=== PATIENT | female | born 1990 | race Caucasian/White ===

== ENCOUNTER → 2017-11-25 14:33 | Outpatient (REF) | payer MEDICARE, MEDICAID, SELFPAY ==
[2017-11-25 19:01] LABS: Basophils % 0.5 % (0.1-2.0); Eosinophils # 0.9 K/mm3 (0.0-0.4); Hematocrit 41.9 % (37.0-47.0); Hemoglobin 13.4 g/dL (12.2-16.2); Lymphocytes # 2.4 K/mm3 (0.7-4.5); Lymphocytes % 25.8 K/mm3 (10-50); Mean Corpuscular HGB Conc 31.9 g/dL (31.8-35.4); Mean Corpuscular Hemoglobin 25.7 pg (27.0-31.2); Mean Corpuscular Volume 80.6 fl (81-99); Mean Platelet Volume 8.6 fl (7.4-10.4); Monocytes # 0.5 K/mm3 (0.1-1.0); Monocytes % 4.9 % (1.7-9.3); Neutrophils # 5.6 K/mm3 (1.8-7.8); Neutrophils % 59.7 % (37.0-80.0); Platelet Count 307 K/mm3 (142-424); Red Cell Distribution Width 14.4 % (11.5-17.5); White Blood Count 9.4 K/mm3 (4.8-10.8)
[2017-11-25 19:31] LABS: Alanine Aminotransferase 108 U/L (12-78); Albumin Level 3.9 gm/dL (3.4-5.0); Albumin/Globulin Ratio 1.3 (1.1-1.8); Alkaline Phosphatase 87 U/L (46-116); Anion Gap 13.2 mEq/L (5-15); Aspartate Amino Transferase 41 U/L (15-37); Bilirubin,Total 0.3 mg/dL (0.2-1.0); Blood Urea Nitrogen 11 mg/dL (7-18); Calcium 8.4 mg/dL (8.5-10.1); Carbon Dioxide 25 mmol/L (21.0-32.0); Chloride 104 mmol/L (98-107); Creatinine,Serum 0.63 mg/dL (0.55-1.02); Estimated Glomerular Filt Rate 115 ml/min (>60); GFR (African American) 139 ML/MIN (>60); Globulin 3.1 gm/dl (1.3-3.2); Glucose 89 mg/dL (74-106); Potassium 4.2 mmoL/L (3.5-5.1); Sodium 138 mmol/L (136-145); Thyroid Stimulating Hormone 2.45 uIU/ml (0.358-3.740)
[2017-11-27 20:09] LABS: Folate 11.8 ng/mL (>3.0); Vitamin B12 573 pg/mL (232-1245); Vitamin D 25 Hydroxy 22.7 ng/mL (30.0-100.0)
[2017-12-02 08:29] LABS: Hep A Ab, IgM Negative (Negative); Hepatitis B Core Antibody IgM Negative (Negative); Hepatitis B Surface Antigen Negative (Negative)
[2017-12-03 08:47] LABS: Hepatitis C Antibody <0.1 s/co ratio (0.0-0.9)
== END ==
LOC: LAB 14:33
PROVIDERS: Visit Provider Physician Assistant
DX: R51 Headache (principal); Z68.29 Body mass index [BMI] 29.0-29.9, adult; R74.8 Abnormal levels of other serum enzymes; R53.83 Other fatigue; F41.9 Anxiety disorder, unspecified
CPT/HCPCS: 80053; 80074; 82607; 82652; 82746; 84443; 85025

== ENCOUNTER → 2017-12-21 16:54 | Outpatient (CLI) | payer MEDICARE, MEDICAID, SELFPAY ==
[2017-12-21 18:07] LABS: HCG,Quantitative 0 mIU/mL
== END ==
PROVIDERS: PCP Physician Assistant; Visit Provider Nurse Practitioner Obstetrics & Gynecology
DX: Z34.90 Encounter for supervision of normal pregnancy, unspecified, unspecified trimester (principal)
CPT/HCPCS: 36415; 84702

== ENCOUNTER → 2017-12-24 07:53 | Outpatient (CLI) | payer MEDICARE, MEDICAID, SELFPAY ==
--- NOTE | 2017-12-24 07:56 | CT_ITS ---
CT head/brain wo con HISTORY: Headache with dizziness and lightheadedness ORDERING PHYSICIAN: RAFAT Velasco PATIENT AGE: 27 years COMPARISON: None TECHNIQUE: Axial images obtained without contrast. Brain and bone windows reviewed. FINDINGS: No midline shift, mass effect, intracranial hemorrhage, hydrocephalus, or extra-axial fluid collection is evident. The calvarium has an unremarkable appearance. No mastoid effusion. No sinus air-fluid levels.. IMPRESSION: Negative CT head without contrast. No acute finding.
== END ==
PROVIDERS: Family Provider Family Medicine; PCP Physician Assistant; Visit Provider Physician Assistant
DX: R51 Headache (principal)
CPT/HCPCS: 70450

== ENCOUNTER 2018-01-01 02:07 | Emergency (ER) | payer MEDICARE, MEDICAID, SELFPAY ==
[2018-01-01 02:09] VITALS: BP 155/104; PULSE 95; RESP 18; TEMP 36.6; O2SAT 97; BMI 28.7
--- NOTE | 2018-01-01 02:34 | HMH.EDALLER ---
ED Disposition Clinical Impression: Allergic reaction Qualifiers: Encounter type: initial encounter Qualified Code(s): T78.40XA - Allergy, unspecified, initial encounter Disposition: Home, Self-Care Condition on Discharge: Good Instructions: DI for General Allergic Reactions Additional Instructions: stop med and call pcp for follow up Referrals: Leticia Dillon PA [Primary Care Provider] - - Critical Care Critical Care Time: No Attestation: On 01/01/18, the high probability of a clinically significant, sudden or life threatening deterioration of the following system(s) required my full and direct attention, intervention and personal management. The time I documented below is in addition to time spent performing reported procedures but includes the following listed in this critical care notation. Medical Decision Making - Medical Records Medical records reviewed: Yes: I reviewed the patient's medical records. Vital Signs: 01/01/18 02:09 Temperature 97.9 F Temperature Source Oral Pulse Rate [Right Radial] 95 H Respiratory Rate 18 Blood Pressure [Right Arm] 155/104 Blood Pressure Mean [Right Arm] 121 Blood Pressure Source [Right Arm] Automatic Cuff Blood Pressure Position [Right Arm] Supine 02 Sat by Pulse Oximetry 97 Oxygen Delivery Method Room Air - Acosta Inquiry Pt receiving controlled substance: No Allergic React/Insect Bite HPI - General Chief complaint: Allergic Reaction Time Seen by Provider: 01/01/18 02:34 Mode of Arrival - ED Triage: Ambulatory Source of Information: Patient, Significant Other, Medical Record Limitations: No Limitations - History of Present Illness HPI narrative: has feeling of swollen throat tonight complaint: allergic reaction Onset (ago): hour(s) Exposure: medication Symptoms: difficulty swallowing Allergies/Adverse Reactions: Allergies Allergy/AdvReac Type Severity Reaction Status Date / Time amoxicillin [From AUGMENTIN] Allergy Unknown Verified 12/30/17 13:44 clavulanic acid Allergy Unknown Verified 12/30/17 13:44 [From AUGMENTIN] - Related Data Home Medications Medication Instructions Recorded Confirmed ibuprofen 400 mg tablet 800 mg PO NEEDED tab 11/04/17 01/01/18 Cholecalciferol (Vitamin D3) 1,000 unit PO ONCE 01/01/18 01/01/18 [Vitamin D3 1,000 Unit Cap] Duloxetine HCl [Cymbalta] 30 mg PO DAILY 01/01/18 01/01/18 Ergocalciferol (Vitamin D2) 50,000 unit PO QWEEK 01/01/18 01/01/18 [Vitamin D2] Phentermine HCl 37.5 mg PO DAILY 01/01/18 01/01/18 Ropinirole HCl [Requip] 0.5 mg PO QHS 01/01/18 01/01/18 Tramadol HCl [Ultram Take Home 50 mg PO BID 01/01/18 01/01/18 Pack 50mg (10)] Previous Rx's Medication Instructions Recorded albuterol sulfate HFA 90 2 puff INHALATION Q4-6H PRN #6.7 g 12/30/17 mcg/actuation aerosol inhaler [facility] History I have reviewed the patient's past medical history: Yes 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: Reports:: Anxiety, Asthma, Depression Denies:: Cancer, Diabetes Mellitus Type 1, Diabetes Mellitus Type 2, MRSA Other Surgeries: Yes: Amputation: No Fractures: No - Social History Educational Level: Completed High School Smoking Status: Never smoker Alcohol Intake: never Substance Use Type: denies use Occupational Status: unemployed Housing: house Household Members: spouse, children - Psychiatric History Expresses thoughts of harming self/others: None Suicide Plan Description: No Plan Pschychiatric History:: Reports:: Anxiety, Depression Family Hx:: Hypertension, 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
--- NOTE | 2018-01-01 02:37 | ED_ITS ---
ED Disposition Clinical Impression: Allergic reaction Qualifiers: Encounter type: initial encounter Qualified Code(s): T78.40XA - Allergy, unspecified, initial encounter Disposition: Home, Self-Care Condition on Discharge: Good Instructions: DI for General Allergic Reactions Additional Instructions: stop med and call pcp for follow up Referrals: Leticia Dillon PA [Primary Care Provider] - - Critical Care Critical Care Time: No Attestation: On 01/01/18, the high probability of a clinically significant, sudden or life threatening deterioration of the following system(s) required my full and direct attention, intervention and personal management. The time I documented below is in addition to time spent performing reported procedures but includes the following listed in this critical care notation. Medical Decision Making - Medical Records Medical records reviewed: Yes: I reviewed the patient's medical records. Vital Signs: 01/01/18 02:09 Temperature 97.9 F Temperature Source Oral Pulse Rate [Right Radial] 95 H Respiratory Rate 18 Blood Pressure [Right Arm] 155/104 Blood Pressure Mean [Right Arm] 121 Blood Pressure Source [Right Arm] Automatic Cuff Blood Pressure Position [Right Arm] Supine 02 Sat by Pulse Oximetry 97 Oxygen Delivery Method Room Air - Acosta Inquiry Pt receiving controlled substance: No Allergic React/Insect Bite HPI - General Chief complaint: Allergic Reaction Time Seen by Provider: 01/01/18 02:34 Mode of Arrival - ED Triage: Ambulatory Source of Information: Patient, Significant Other, Medical Record Limitations: No Limitations - History of Present Illness HPI narrative: has feeling of swollen throat tonight complaint: allergic reaction Onset (ago): hour(s) Exposure: medication Symptoms: difficulty swallowing Allergies/Adverse Reactions: Allergies Allergy/AdvReac Type Severity Reaction Status Date / Time amoxicillin [From AUGMENTIN] Allergy Unknown Verified 12/30/17 13:44 clavulanic acid Allergy Unknown Verified 12/30/17 13:44 [From AUGMENTIN] - Related Data Home Medications Medication Instructions Recorded Confirmed ibuprofen 400 mg tablet 800 mg PO NEEDED tab 11/04/17 01/01/18 Cholecalciferol (Vitamin D3) 1,000 unit PO ONCE 01/01/18 01/01/18 [Vitamin D3 1,000 Unit Cap] Duloxetine HCl [Cymbalta] 30 mg PO DAILY 01/01/18 01/01/18 Ergocalciferol (Vitamin D2) 50,000 unit PO QWEEK 01/01/18 01/01/18 [Vitamin D2] Phentermine HCl 37.5 mg PO DAILY 01/01/18 01/01/18 Ropinirole HCl [Requip] 0.5 mg PO QHS 01/01/18 01/01/18 Tramadol HCl [Ultram Take Home 50 mg PO BID 01/01/18 01/01/18 Pack 50mg (10)] Previous Rx's Medication Instructions Recorded albuterol sulfate HFA 90 2 puff INHALATION Q4-6H PRN #6.7 g 12/30/17 mcg/actuation aerosol inhaler [facility] History I have reviewed the patient's past medical history: Yes 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: Reports:: Anxiety, Asthma, Depression Denies:: Cancer, Diabetes Mellitus Type 1, Diabetes Mellitus Type 2, MRSA Other Surgeries: Yes: Amputation: No Fractures: No - Social History Educational Level: Completed High School Smoking Status: Never smoker Alcohol Intake: never Substance Use Type: denies
[2018-01-01 02:52] VITALS: BP 145/89; PULSE 96; RESP 14; TEMP 36.6; O2SAT 97
== END 2018-01-01 02:53 | disposition home or self-care (01) ==
PROVIDERS: Emergency Provider Emergency Medicine; Family Provider Family Medicine; PCP Physician Assistant
DX: T78.40XA Allergy, unspecified, initial encounter (principal); Z88.1 Allergy status to other antibiotic agents; Z79.899 Other long term (current) drug therapy; F41.8 Other specified anxiety disorders; J45.909 Unspecified asthma, uncomplicated
CPT/HCPCS: 99281

== ENCOUNTER → 2018-03-15 08:13 | Outpatient (POV) | payer MEDICARE, MEDICAID, SELFPAY | PROVIDERS: Family Provider Family Medicine; PCP Physician Assistant; Visit Provider Specialist | DX: R20.2 Paresthesia of skin (principal); R20.0 Anesthesia of skin | CPT/HCPCS: 95886; 95909 ==

== ENCOUNTER → 2018-10-19 16:11 | Outpatient (CLI) | payer MEDICARE, MEDICAID, SELFPAY | PROVIDERS: Visit Provider Nurse Practitioner Obstetrics & Gynecology | DX: Z34.90 Encounter for supervision of normal pregnancy, unspecified, unspecified trimester (principal) ==

== ENCOUNTER → 2018-11-18 13:13 | Outpatient (CLI) | payer MEDICAID, SELFPAY ==
--- NOTE | 2018-11-18 13:18 | US_ITS ---
US OB >= 14 weeks Fetus: INDICATION: ITS.REASON: US OB Dates ORDERING PHYSICIAN: Gurvinder Blount MD PATIENT AGE: 28 years TECHNIQUE: ultrasound transabdominal scanning. COMPARISON: No previous relevant studies. FINDINGS: There is a single live intrauterine gestation present. Variable position. Placenta is posterior Measurements: Average ultrasound age 12w6d. Gestational Age 15w4d. Estimated due date by ultrasound age 0705/27/2019. Estimated weight 60 grams. BPD = 12w6d OFD = HC = 13w1d AC = 12w5d FL = 12w3d Heart Rate = 165 HC/AC is 1.25 (1.05-1.39) CI is 65% (70-86%). Unremarkable adnexa IMPRESSION: Single live intrauterine gestation with average ultrasound age of 12 weeks 6 days. Estimated due date based on ultrasound is 05/27/2019.
== END ==
PROVIDERS: PCP Physician Assistant; Visit Provider Nurse Practitioner Obstetrics & Gynecology
DX: O26.841 Uterine size-date discrepancy, first trimester (principal)
CPT/HCPCS: 76805

== ENCOUNTER → 2018-12-23 12:07 | Outpatient (CLI) | payer MEDICAID, SELFPAY ==
[2018-12-23 12:33] LABS: Basophils % 0.4 % (0.1-2.0); Eosinophils # 0.3 K/mm3 (0.0-0.4); Eosinophils % 2.4 % (0.1-12.0); Hematocrit 38.7 % (37.0-47.0); Hemoglobin 13.4 g/dL (12.2-16.2); Lymphocytes # 2.2 K/mm3 (0.7-4.5); Lymphocytes % 21.2 % (10-50); Mean Corpuscular HGB Conc 34.5 g/dL (31.8-35.4); Mean Corpuscular Hemoglobin 30.3 pg (27.0-31.2); Mean Corpuscular Volume 87.9 fl (81-99); Mean Platelet Volume 7.4 fl (7.4-10.4); Monocytes # 0.4 K/mm3 (0.1-1.0); Monocytes % 4.1 % (1.7-9.3); Neutrophils # 7.4 K/mm3 (1.8-7.8); Neutrophils % 71.9 % (37.0-80.0); Platelet Count 281 K/mm3 (142-424); Red Cell Distribution Width 13.7 % (11.5-17.5); White Blood Count 10.3 K/mm3 (4.8-10.8)
[2018-12-24 12:28] LABS: HIV Screen 4th Generation wRfx Non Reactive (Non Reactive); Hepatitis B Surface Antigen Negative (Negative); Hepatitis C Antibody <0.1 s/co ratio (0.0-0.9); Rapid Plasma Reagin Ab Titer Non Reactive (NonRea<1:1); Rubella Antibodies, IgG 1.41 index (Immune >0.99)
== END ==
PROVIDERS: Visit Provider Nurse Practitioner Obstetrics & Gynecology
DX: Z34.90 Encounter for supervision of normal pregnancy, unspecified, unspecified trimester (principal)
CPT/HCPCS: 36415; 85025; 86592; 86703; 86762; 86850; 87340; 87380; G0432

== ENCOUNTER → 2019-01-07 13:15 | Outpatient (CLI) | payer MEDICAID, SELFPAY ==
--- NOTE | 2019-01-07 13:17 | US_ITS ---
US OB /maternal detail: INDICATION: ITS.REASON: US OB Complete ORDERING PHYSICIAN: Trudi Warner MD PATIENT AGE: 28 years TECHNIQUE: ultrasound transabdominal scanning. COMPARISON: No previous relevant studies. FINDINGS: Single viable intrauterine gestation. Breech position. Placenta: Post placenta grade 1. There is average amount fluid. The cervix appears satisfactory. Closed and measuring 4 cm in length. Complete survey performed and was unremarkable on the submitted images as in PACS. No discrete anomalies identified on survey imaging by technologist. Active fetus. Three-vessel cord with satisfactory umbilical cord insertion. 4- chamber heart noted. Survey of brain & ventricles unremarkable. Face and neck survey unremarkable. Diaphragm and chest views unremarkable. Abdomen: Both kidneys noted and unremarkable. Stomach noted and satisfactory. Spine: Survey of the spine satisfactory with no anomalies identified nor imaged. Both arms and legs noted. Amniotic Fluid: Adequate. Maternal adnexa: No significant findings. Measurements: Average ultrasound age 18w5d. Gestational Age 20w0d. Estimated due date by ultrasound age 0706/05/2019. Estimated weight 256 grams. BPD = 18w3d OFD = 19w5d HC = 18w3d AC = 18w4d FL = 19w2d Growth Percentile= 4% Heart Rate = 163 Cerebellum = 18w3d Humerus = 18w5d HC/AC is 1.20 (1.09-1.26). CI is 72% (70-86%). FL/BPD is 74%. FL/AC is 23%. IMPRESSION: There is a single live fetus which is in breech presentation. All parameters correlate with no obvious anomalies. Average ultrasound age is 18 weeks and 5 days. Estimated weight 256-g which is 4 percentile. Consider follow-up to evaluate for growth. Please see above for detail. Placenta is posterior and grade 1
== END ==
PROVIDERS: PCP Physician Assistant; Visit Provider Obstetrics & Gynecology
DX: Z36.0 Encounter for antenatal screening for chromosomal anomalies (principal)
CPT/HCPCS: 76811

== ENCOUNTER 2019-04-23 01:52 | Emergency (ER) | payer MEDICAID, SELFPAY ==
[2019-04-23 02:04] VITALS: BP 151/106; PULSE 94; RESP 16; TEMP 36.9; O2SAT 98; BMI 66.6
--- NOTE | 2019-04-23 02:17 | PC.NURSE ---
OB at bedside to hook patient up to monitor.
--- NOTE | 2019-04-23 02:18 | PC.NURSE ---
efm applied at this time. OB RN at bedside at this time
--- NOTE | 2019-04-23 02:30 | PC.NURSE ---
[facility] [id number] see paper tracing fht 135 moderate variability no decels irregular contractions, none felt per pt. rn remains at bedside
[2019-04-23 02:34] LABS: Microscopic, Urine URINE MICROSCOPIC (MICROSCOPIC)
[2019-04-23 02:36] LABS: Basophils % 0.3 % (0.1-2.0); Eosinophils # 0.4 K/mm3 (0.0-0.4); Eosinophils % 2.9 % (0.1-12.0); Hematocrit 38.5 % (37.0-47.0); Hemoglobin 12.6 g/dL (12.2-16.2); Lymphocytes # 2.5 K/mm3 (0.7-4.5); Lymphocytes % 20.9 % (10-50); Mean Corpuscular HGB Conc 32.8 g/dL (31.8-35.4); Mean Corpuscular Hemoglobin 28.2 pg (27.0-31.2); Mean Corpuscular Volume 85.8 fl (81-99); Mean Platelet Volume 8.1 fl (7.4-10.4); Monocytes # 0.8 K/mm3 (0.1-1.0); Monocytes % 6.5 % (1.7-9.3); Neutrophils # 8.4 K/mm3 (1.8-7.8); Neutrophils % 69.5 % (37.0-80.0); Platelet Count 266 K/mm3 (142-424); Red Blood Count 4.49 M/mm3 (4.20-5.40); Red Cell Distribution Width 14.7 % (11.5-17.5); White Blood Count 12.1 K/mm3 (4.8-10.8)
--- NOTE | 2019-04-23 02:38 | HMH.EDGENADL ---
ED Disposition Clinical Impression: Chest pain Qualifiers: Chest pain type: unspecified Qualified Code(s): R07.9 - Chest pain, unspecified Qualifiers: Weeks of gestation: 35 weeks Qualified Code(s): Z3A.35 - 35 weeks gestation of Disposition: Home, Self-Care Condition on Discharge: Good Instructions: DI for -- Discomforts and Remedies Additional Instructions: use meds as directed and follow up with ob Referrals: Leticia Dillon PA [Primary Care Provider] - - Critical Care Critical Care Time: No Attestation: On 04/23/19, the high probability of a clinically significant, sudden or life threatening deterioration of the following system(s) required my full and direct attention, intervention and personal management. The time I documented below is in addition to time spent performing reported procedures but includes the following listed in this critical care notation. Medical Decision Making - Medical Records Medical records reviewed: Yes: I reviewed the patient's medical records. - Acosta Inquiry Pt receiving controlled substance: No Vital Signs: 04/23/19 02:04 04/23/19 02:56 04/23/19 03:00 Temperature 98.5 F 98.5 F Temperature Source Temporal Artery Scan Temporal Artery Scan Pulse Rate [Right Brachial] 94 H 87 Respiratory Rate 16 16 Blood Pressure [Right Arm] 151/106 H 137/92 H 137/80 Blood Pressure Mean [Right Arm] 121 107 99 Blood Pressure Source [Right Arm] Automatic Cuff Automatic Cuff Automatic Cuff Blood Pressure Position [Right Arm] Sitting Sitting Sitting 02 Sat by Pulse Oximetry 98 98 Oxygen Delivery Method Room Air Room Air - Lab Data Lab results reviewed: Yes: I reviewed the patient's lab results. Lab Results 04/23/19 02:16: WBC 12.1 H, RBC 4.49, Hgb 12.6, Hct 38.5, MCV 85.8, MCH 28.2, MCHC 32.8, RDW 14.7, Plt Count 266, MPV 8.1, Neut % (Auto) 69.5, Lymph % (Auto) 20.9, Freeborn % (Auto) 6.5, Eos % (Auto) 2.9, Baso % (Auto) 0.3, Neut # (Auto) 8.4 H, Lymph # (Auto) 2.5, Freeborn # (Auto) 0.8, Eos # (Auto) 0.4, Baso # (Auto) 0.0 04/23/19 02:16: Sodium 142, Potassium 3.4 L, Chloride 106, Carbon Dioxide 22, Anion Gap 17.4 H, BUN 6 L, Creatinine 0.66, Estimated Creat Clear 97, Estimated GFR 107, Est GFR ( Amer) 130, Glucose 91, Calcium 8.9, Troponin I < 0.02 04/23/19 02:16: Total Bilirubin 0.3, Direct Bilirubin 0.1, Indirect Bilirubin 0.2, AST 17, ALT 21, Alkaline Phosphatase 129 H, Total Protein 6.6, Albumin 2.7 L, Lipase 111 04/23/19 02:25: Urine Color Yellow, Urine Appearance Clear, Urine pH 6.5, Ur Specific Sullivan 1.025, Urine Protein Negative, Urine Glucose (UA) Negative, Urine Ketones Negative, Urine Blood Negative, Urine Nitrate Negative, Urine Bilirubin Negative, Urine Urobilinogen 0.2, Ur Leukocyte Esterase Negative, Ur Squamous Epith Cells 5-10, Amorphous Sediment 1+ Result diagrams: 04/23/19 02:16 04/23/19 02:16 Orders (Tests/Meds): ED MEDICATIONS Generic Name Dose Route Start Last Admin Trade Name Freq PRN Reason Stop Dose Admin Sodium Chloride 1,000 mls @ 999 mls/hr 04/23/19 03:00 04/23/19 03:01 Sod Chlor 0.9% 1000ml Bag IV 04/23/19 04:00 999 mls/hr .Q1H1M WOLFGANG Administration General Adult HPI - General Chief complaint: PAIN Stated complaint: Chest pain,stomach pain, dizziness Time Seen by Provider: 04/23/19 02:20 Mode of Arrival: Ambulatory Source of Information: Patient, Medical Record Limitations: No Limitations Description of Symptoms (Recalled from ER Triage Doc. by RN): Pt is 35 weeks and c/o chest pain, tightness in her abd that has been going on for 2 hrs. - History of Present Illness HPI narrative: pt with lower chest /upper abd pain in this 35 week preg - no vag bleeding or d/c - no vomiting or diarrhea - no known ht disease - on meds for pre-=eclampsia Onset (ago): hour(s) Location: chest, abdomen Radiation: non-radiation Severity: moderate Associated symptoms: denies other symptoms Treatm
[2019-04-23 02:45] LABS: Appearance,Urine CLEAR (Clear); Bilirubin,Urine Negative (Negative); Blood, Urine Negative (Negative); Color,Urine YELLOW (Yellow); Glucose,Urine (UA) Negative (Negative); Ketones,Urine Negative (Negative); Leukocyte Esterase,Urine Negative (Negative); Nitrate,Urine Negative (Negative); PH,Urine 6.5 (5.0-8.5); Protein,Urine Negative (Negative); Specific Gravity, Urine 1.025 (1.005-1.030); Urobilinogen,Urine 0.2 EU/dl (0.2)
--- NOTE | 2019-04-23 02:45 | PC.NURSE ---
[facility] [id number] see paper tracing OB RN remains at bedside monitoring heart status at this time [id number] moderate variabillity no decels. irregular contractions. none felt per pt pt states headache and abdominal pain better at this time
[2019-04-23 02:49] LABS: Amorphous Sediment,Urine 1+ /lpf
[2019-04-23 02:52] LABS: Anion Gap 17.4 mEq/L (5-15); Blood Urea Nitrogen 6 mg/dL (7-18); Calcium 8.9 mg/dL (8.5-10.1); Carbon Dioxide 22 mmol/L (21.0-32.0); Chloride 106 mmol/L (98-107); Creatinine Clearance Estimated 97 mL/min (50-200); Creatinine,Serum 0.66 mg/dL (0.55-1.02); Estimated Glomerular Filt Rate 107 ml/min (>60); GFR (African American) 130 ML/MIN (>60); Glucose 91 mg/dL (74-106); Potassium 3.4 mmoL/L (3.5-5.1); Sodium 142 mmol/L (136-145); Troponin I < 0.02 ng/ml (0.00-0.06)
[2019-04-23 02:56] VITALS: BP 137/92
[2019-04-23 02:56] LABS: Alanine Aminotransferase 21 U/L (12-78); Albumin Level 2.7 gm/dL (3.4-5.0); Alkaline Phosphatase 129 U/L (46-116); Aspartate Amino Transferase 17 U/L (15-37); Bilirubin,Direct 0.1 mg/dL (0.0-0.2); Bilirubin,Indirect 0.2 mg/dL (0.0-0.9); Bilirubin,Total 0.3 mg/dL (0.2-1.0); Lipase 111 u/L (73-393); Total Protein,Serum 6.6 gm/dL (6.4-8.2)
--- NOTE | 2019-04-23 02:57 | PC.NURSE ---
[id number] see paper tracing fht average 135-140 moderate variability with no decels or contractions
[2019-04-23 03:00] VITALS: BP 137/80; PULSE 87; RESP 16; TEMP 36.9; O2SAT 98
[2019-04-23 03:30] VITALS: BP 134/70; PULSE 70; RESP 16; TEMP 36.9; O2SAT 98
== END 2019-04-23 03:36 | disposition home or self-care (01) ==
PROVIDERS: Emergency Provider Emergency Medicine; PCP Physician Assistant
DX: R07.9 Chest pain, unspecified (principal); Z3A.35 35 weeks gestation of pregnancy; F41.8 Other specified anxiety disorders; J45.909 Unspecified asthma, uncomplicated; Z88.1 Allergy status to other antibiotic agents; Z88.8 Allergy status to other drugs, medicaments and biological substances
CPT/HCPCS: 80048; 80076; 81001; 83690; 84484; 85025; 93005; 96365; 99283

== ENCOUNTER → 2019-04-25 16:53 | Outpatient (CLI) | payer MEDICAID, SELFPAY | PROVIDERS: Visit Provider Nurse Practitioner Obstetrics & Gynecology | DX: Z34.90 Encounter for supervision of normal pregnancy, unspecified, unspecified trimester (principal) | CPT/HCPCS: 86403 ==

== ENCOUNTER → 2019-05-03 12:45 | Outpatient (CLI) | payer MEDICAID, SELFPAY ==
--- NOTE | 2019-05-03 12:49 | US_ITS ---
US OB BPP w/Fet-Mat S/D: Indication: ITS.REASON: US OB BPP Growth- LGA ORDERING PHYSICIAN: Gurvinder Blount MD PATIENT AGE: 29 years FINDINGS: The visualized portions of the fetus appear to be unremarkable. The following parameters are obtained: Average ultrasound age is 35 weeks. Estimated due date by ultrasound is 06/07/2019. Estimated weight is 2667 g BPD: 8.55 cm equals 34 weeks and 4 days. OFD: 10.68 cm equals 34 weeks. HC: 30.39 cm equals 33 weeks and 6 days. AC: 32.28 cm equals 36 weeks and 2 days. FL: 6.78 cm equals 34 weeks and 6 days. heart rate: 144 bpm. HC/AC: 0.94 Cephalic index: 80% FL/BPD: 79% FL/AC: 21% Amniotic fluid index: 26.9 Qualitative AFV: 2 breathing movements: 2 Gross body movements: 2 Tone: 2 Biophysical profile score: 8/8 Doppler evaluation of the umbilical artery: SD ratio: 2.5 Resistive index: 0.6 No obvious anomalies evident. Placenta: Grade 2 and posterior in location. Cervix: Appears closed and measures 3.16 cm IMPRESSION: Single intrauterine fetus of approximately 35 weeks gestational age with heart rate of 144 bpm. The fetus appears to be in cephalic presentation. There is possible polyhydramnios.
== END ==
PROVIDERS: PCP Physician Assistant; Visit Provider Nurse Practitioner Obstetrics & Gynecology
DX: O36.60X0 Maternal care for excessive fetal growth, unspecified trimester, not applicable or unspecified (principal)
CPT/HCPCS: 76819

== ENCOUNTER 2019-05-21 23:32 | Outpatient (CLI) | payer MEDICAID, SELFPAY ==
[2019-05-22 00:16] VITALS: BMI 32.5
[2019-05-22 00:18] VITALS: BP 143/99; PULSE 82; RESP 18; TEMP 36.9
[2019-05-22 00:20] VITALS: BMI 32.5
[2019-05-22 00:55] LABS: Microscopic, Urine URINE MICROSCOPIC (MICROSCOPIC)
[2019-05-22 00:59] LABS: Appearance,Urine SL CLOUDY (Clear); Bilirubin,Urine Negative (Negative); Blood, Urine Negative (Negative); Color,Urine YELLOW (Yellow); Glucose,Urine (UA) Negative (Negative); Ketones,Urine Negative (Negative); Leukocyte Esterase,Urine 1+ (Negative); Nitrate,Urine Negative (Negative); PH,Urine 6.5 (5.0-8.5); Protein,Urine Negative (Negative); Specific Gravity, Urine 1.025 (1.005-1.030); Urobilinogen,Urine 0.2 EU/dl (0.2)
[2019-05-22 01:04] LABS: Amphetamine/Metha Screen,Urine Negative ng/mL (<1000); Barbiturates Screen,Urine Negative ng/mL (<200); Benzodiazepines Screen,Urine Negative ng/mL (<200); Cannabinoid Screen,Urine Negative ng/mL (<50); Cocaine Screen,Urine Negative ng/mL (<300); Methadone Screen,Urine Negative ng/mL (<300); Opiate Screen,Urine Negative ng/mL (<300); Phencyclidine Screen,Urine Negative ng/mL (<25)
[2019-05-22 01:05] LABS: Amorphous Sediment,Urine 2+ /lpf; Mucus,Urine 1+ /lpf
== END 2019-05-22 03:45 | disposition home or self-care (01) ==
LOC: OBOUT 23:35 → OB 23:35
PROVIDERS: PCP Physician Assistant; Visit Provider Obstetrics & Gynecology
DX: Z3A.39 39 weeks gestation of pregnancy (principal)
CPT/HCPCS: 59025; 80305; 81001; 87086

== ENCOUNTER 2019-05-23 05:31 | Inpatient (IN) ==
[2019-05-23 06:37] LABS: Basophils # 0.1 K/mm3 (0-0.2); Basophils % 0.5 % (0.1-2.0); Eosinophils # 0.6 K/mm3 (0.0-0.4); Eosinophils % 4.4 % (0.1-12.0); Hematocrit 38.1 % (37.0-47.0); Hemoglobin 12.5 g/dL (12.2-16.2); Lymphocytes # 3.1 K/mm3 (0.7-4.5); Lymphocytes % 22.3 % (10-50); Mean Corpuscular HGB Conc 32.9 g/dL (31.8-35.4); Mean Corpuscular Volume 86.8 fl (81-99); Monocytes # 0.7 K/mm3 (0.1-1.0); Monocytes % 4.7 % (1.7-9.3); Neutrophils # 9.4 K/mm3 (1.8-7.8); Platelet Count 254 K/mm3 (142-424); Red Blood Count 4.39 M/mm3 (4.20-5.40); Red Cell Distribution Width 14.4 % (11.5-17.5); White Blood Count 13.8 K/mm3 (4.8-10.8)
[2019-05-23 06:48] LABS: Anion Gap 13.3 mEq/L (5-15); Calcium 8.4 mg/dL (8.5-10.1)
--- NOTE | 2019-05-23 08:32 | Operative Note ---
Date of procedure: 05/23/19 Pre-op Diagnosis:: Term , previous section, desire for sterilization Post-op Diagnosis:: Term , previous section, desire for sterilization Procedure performed:: Repeat lower segment as her section and bilateral tubal ligation Surgeon:: Guvrinder Blount MD Manager Internet(s):: Dr. Warner WARES SORTER:: Danny Kat Anesthesia: spinal Estimated blood loss (mL): 600 Clinical Note:: She is a 29-year-old 3 para 2 who is 39 weeks gestational age. She is had 2 previous sections and as a result of that was offered repeat lower segment transverse section at term. She also expressed desire for sterilization and she was offered bilateral tubal ligation. Operative findings:: She delivered a liveborn female child at 7:49 AM on the morning of May 23, 2019. The baby had Apgars of 7 at 1 minute and 8 at 5 minutes. Ovaries and tubes appeared normal. Operative note:: She was taken to the operating room where spinal anesthesia was found be adequate. She was prepped and draped in normal sterile fashion in the supine position with a leftward tilt. A Oneal catheter was in the bladder. A Pfannenstiel skin incision was made with knife then carried through to the underlying layer of fascia with cautery. The fascia was opened in the midline with cautery and extended laterally using Hills scissors. Zohra clamps were applied to the superior aspect of the fascial incision which was tented up and the underlying rectus muscles dissected off using cautery. The Zohra clamps were then applied to the inferior aspect of the fascial incision which in a similar fashion was tented up and the underlying rectus muscles dissected off using cautery. The rectus muscles were then in the midline, the peritoneum identified, and entered sharply with Metzenbaum scissors. This incision was then extended superiorly and inferiorly with cautery. We had good visualization of the bladder inferiorly. The Kei device was then placed within the abdominal cavity. The bladder peritoneum was then opened in the midline and extended laterally using Metzenbaum scissors. A bladder flap was created digitally. The Kei device was then placed within the abdominal cavity. Transverse incision was made through the uterine muscle to the amnion. This incision was then extended laterally using fingers traction. The amnion was entered sharply with knife. There was clear amniotic fluid. The 's head was then delivered atraumatically. This was followed by the anterior shoulder and the rest of the infant's body atraumatically. The oropharynx and nasopharynx were bulb suctioned. The infant was then handed off to Dr. Garcia who assigned Apgars of 7 at 1 minute and 8 at 5 minutes. We then obtained cord blood as well as cord pH. The pH was 7.39. Using gentle traction on the cord and countertraction on the fundus I was able to easily deliver the placenta intact. It had a normal three-vessel cord. The uterus was then cleared of clots and debris . The uterine incision was then closed using running 0 Vicryl suture in a locked fashion. A second layer of the same suture was used to imbricate the first layer. The bladder peritoneum was quite down low away from the lower uterine segment so I elected just closed the lower uterine segment and a third layer of running 2-0 Vicryl suture. The gutters and cul-de-sac were then cleared of clots and debris . Once again hemostasis was assured. I then grasped the left tube and exposed it. I grasped the tube in the middle section of the tube with a Kennedy and then clamped across the intervening section of tube. I then doubly tied this section of tube and cut away the intervening section of tube. I then cauterized the ends of the tubes. This was similar performed on the opposite side. I then elected to place a piece of Surgicel along the uterine incision. The peritoneum was grasped with Rosa Maria clamps and closed using running 2-0 Vicryl suture. The rectus muscles were then reapproximated using running 0 Vicryl suture. The fascia was closed using running #1 Vicryl suture. The subcutaneous tissues were then irrigated with warm water followed by closure Blanche's fascia using running 2-0 Monocryl suture. The skin was closed with roopa. I then cleaned the skin with Hibiclens. Sterile dressings were applied. She tolerated the procedure well and was taken to the recovery room in excellent condition. All sponges minute and needle counts were correct. Estimate a blood loss was approximately 600 mL. Condition: stable Disposition: PACU Specimens:: Bilateral fallopian tube sections Complications:: None
--- NOTE | 2019-05-23 08:38 | Progress Note ---
[facility] Anesthesia Checklist - Patient Identification Patient Identification: Arm Band - Structural Data Admitted From: Inpatient Planned Operative Procedure/s: repeat c/s, btl Consent for Planned Operative Procedure(s) Verified: Yes Verified Documents: Surgical Consent, History and Physical - NPO Status Verified Time NPO: 00:00 - Additional verifications Anesthesia Reactions: No - Airway Assessment C-Spine Mobility Assessed: Yes (mp2) TMJ Mobility Assessed: Yes Dentition: Good Dentition - Neurological Assessment Level of Consciousness: Awake, Alert - Anesthesia Plan Anesthesia Risk discussed: Yes Anesthesia Plan: Verified ASA Class: II Anesthesia Type: Spinal [facility] History I have reviewed the patient's past medical history: Yes 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: Reports:: Anxiety, Asthma, Depression Denies:: Cancer, Diabetes Mellitus Type 1, Diabetes Mellitus Type 2, Gastrointestinal Bleed, MRSA, Renal Disease, Ulcer *Have you ever received a pneumonia vaccine?: No *Have you received a flu vaccine this season?: No Other Surgeries: Yes: Amputation: No Fractures: No - *Social History Smoking Status: Never smoker Tobacco Type: cigarettes Alcohol Intake: never Substance Use Type: denies use *Occupational Status:: unemployed Housing: house Household Members: spouse, children *Travel in the last 8 weeks: None - Psychiatric History Pschychiatric History:: Reports:: Anxiety, Depression Family 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
--- NOTE | 2019-05-23 08:39 | Progress Note ---
[facility] Anesthesia Record Part I Intake, IV Amount: 2,000 Estimated blood loss (mL): 600 Urine output (mL): 125 Blood Pressure: 127/89 SaO2: 96 Pulse Rate: 95 Respiratory Rate: 16 Temperature: 98.4 F Patient is:: Drowsy, Stable Stable to PACU at:: 08:30
--- NOTE | 2019-05-23 08:39 | Progress Note ---
[facility] Anesthesia Record Part II Discharge Time: 09:00 Destination: Obstetric PACU nurse assessment reviewed?: Yes Patient Condition:: Good Anesthesia Complications:: None Swallowing reflex intact?: Yes Cyanosis?: No
--- NOTE | 2019-05-23 14:57 | Pharmacy Consult Notes ---
[facility] Pharmacy VTE Monitoring - Patient Demographics Admission date: 05/23/19 Report Date: 05/23/19 Time: 14:56 Allergies/Adverse Reactions: Patient Allergies citalopram [From Celexa] Allergy (Mild, Verified 05/19/19 16:08) Rash duloxetine [From Cymbalta] Allergy (Mild, Verified 05/19/19 16:08) amoxicillin [From AUGMENTIN] Allergy (Unknown, Verified 05/19/19 16:08) clavulanic acid [From AUGMENTIN] Allergy (Unknown, Verified 05/19/19 16:08) Height: 1.55 m Weight: 78.018 kg - VTE Risk Labs: VTE Related Lab Results Hgb 12.5 g/dL (12.2-16.2) 05/23/19 06:10 Hct 38.1 % (37.0-47.0) 05/23/19 06:10 Plt Count 254 K/mm3 (142-424) 05/23/19 06:10 BUN 7 mg/dL (7-18) 05/23/19 06:10 Creatinine 0.72 mg/dL (0.55-1.02) 05/23/19 06:10 Estimated Creat Clear 145 mL/min (50-200) 05/23/19 06:10 Clinical Trial Participant: No - Prophylaxis VTE Prophylaxis Ordered?: Yes Types of VTE Prophylaxis: IPCS Knee High (POST OP)
[2019-05-23 15:09] LABS: Amphetamine/Metha Screen,Urine Negative ng/mL (<1000); Barbiturates Screen,Urine Negative ng/mL (<200); Benzodiazepines Screen,Urine Negative ng/mL (<200); Cannabinoid Screen,Urine Negative ng/mL (<50); Cocaine Screen,Urine Negative ng/mL (<300); Methadone Screen,Urine Negative ng/mL (<300); Opiate Screen,Urine Negative ng/mL (<300); Phencyclidine Screen,Urine Negative ng/mL (<25)
[2019-05-24 06:49] LABS: Hemoglobin 9.8 g/dL (12.2-16.2)
--- NOTE | 2019-05-24 07:14 | Progress Note ---
Internal Medicine - PN: Subj *Date: 05/24/19 *Time: 07:13 Interval history: She continues to do well. She is eating and drinking and ambulating. Her pain is well controlled. Her lochia is normal. Exam Vital signs and Labs for Last 24 Hours: Temp Pulse Resp BP Pulse Ox 97.8 F 89 18 140/95 H 98 05/23/19 09:00 05/23/19 09:00 05/23/19 09:00 05/23/19 09:00 05/23/19 09:00 Laboratory Results - last 24 hr 05/23/19 06:10: Urine Opiates Screen Negative, Urine Methadone Screen Negative, Ur Barbituates Screen Negative, Ur Phencyclidine Scrn Negative, Ur Amphetamines Screen Negative, U Benzodiazepines Scrn Negative, Urine Cocaine Screen Negative, U Marijuana (THC) Screen Negative 05/23/19 07:35: Urine Color Yellow, Urine Appearance Clear, Urine pH 6.5, Ur Specific [place] 1.025, Urine Protein Trace, Urine Glucose (UA) Negative, Urine Ketones Negative, Urine Blood Negative, Urine Nitrate Negative, Urine Bilirubin Negative, Urine Urobilinogen 0.2, Ur Leukocyte Esterase Negative, Urine WBC Occasional, Ur Squamous Epith Cells Occasional, Urine Bacteria Trace 05/23/19 07:52: Cord ABG pH 7.38 05/24/19 06:12: Hgb 9.8 L, Hct 30.0 L I & O for Last 24 hours: Intake & Output 05/21/19 05/22/19 05/23/19 05/24/19 11:59 11:59 11:59 11:59 Intake Total 2200 / 2200 Output Total 200 / 200 Balance 1999 Weight 172 lb - Constitutional no acute distress Assessment and Plan (1) Previous section complicating , with delivery Current visit: Yes Status: Acute Category: Medical Code(s): O34.219 - Maternal care for unspecified type scar from previous delivery (2) Encounter for sterilization Current visit: Yes Status: Acute Category: Medical Code(s): Z30.2 - Encounter for sterilization (3) Delivery by section of full-term Current visit: Yes Status: Acute Category: Medical Code(s): O82 - Encounter for delivery without indication - Assessment and plan all Dx Assessment and Plan for all problems:: She continues to do well. We will plan to send her home in 48 hours.
[2019-05-24 22:08] VITALS: BP 140/100
--- NOTE | 2019-05-25 09:21 | Progress Note ---
Internal Medicine - PN: Subj *Date: 05/25/19 *Time: 09:20 Interval history: She is doing well this morning. She is eating and drinking and ambulating. She is still an moderate amount of pain at times. She is bottlefeeding. Her lochia is normal. Her incision is clean and dry. Exam Vital signs and Labs for Last 24 Hours: Temp Pulse Resp BP Pulse Ox 98.6 F 102 H 17 140/100 H 98 05/24/19 20:20 05/24/19 20:20 05/24/19 20:20 05/24/19 20:20 05/24/19 20:20 I & O for Last 24 hours: Intake & Output 05/22/19 05/23/19 05/24/19 05/25/19 11:59 11:59 11:59 11:59 Intake Total 2200 / 2200 Output Total 200 / 200 Balance 1999 Weight 172 lb - Constitutional no acute distress Assessment and Plan (1) Previous section complicating , with delivery Current visit: Yes Status: Acute Category: Medical Code(s): O34.219 - Maternal care for unspecified type scar from previous delivery (2) Encounter for sterilization Current visit: Yes Status: Acute Category: Medical Code(s): Z30.2 - Encounter for sterilization (3) Delivery by section of full-term infant Current visit: Yes Status: Acute Category: Medical Code(s): O82 - Encounter for delivery without indication - Assessment and plan all Dx Assessment and Plan for all problems:: She continues to do very well. She will be discharged home tomorrow.
--- NOTE | 2019-05-26 08:18 | Discharge Summary ---
General - General Admission date:: 05/23/19 Discharge date: 05/26/19 HPI HPI: She is a 29-year-old 3 now para 3 who was 39 weeks gestational age. She has had 2 previous sections and as a result of that was offered repeat lower segment transverse section at term. She also expressed desire for sterilization. Hospital Course Hospital Course: On May 23, 2019 she underwent a repeat lower segment transverse section and bilateral tubal ligation. She delivered a liveborn female child weighing 6 pounds 11 ounces and 19 inches long. The baby had Apgars of 7 at 1 minute and 8 at 5 minutes. She has done well and has remained afebrile throughout her hospitalization. She is eating and drinking and ambulating. She is bottlefeeding. She has a positive blood, she is rubella immune and was group B strep is negative. Her lockstitcher is Dr. Garcia. She will be discharged home to follow-up with me in approximately 2 weeks time. She will continue with her pre vitamins and iron. She was given the usual instructions with respect to limiting her activity and driving as well as sexual activity. She has had her roopa removed and Steri-Strips applied. Her condition on discharge is stable. Rhogam Administration: Not Indicated Objective Vital signs: Temp Pulse Resp BP Pulse Ox 98.6 F 102 H 17 140/100 H 98 05/24/19 20:20 05/24/19 20:20 05/24/19 20:20 05/24/19 20:20 05/24/19 20:20 no acute distress DS: Diagnosis - Discharge Diagnosis (1) Previous section complicating , with delivery Status: Acute (2) Encounter for sterilization Status: Acute (3) Delivery by section of full-term infant Status: Acute Discharge Plan - Patient Discharge Instructions ACTIVITY: No heavy lifting DIET: continue same diet - Follow up Plan Follow up with: Gurvinder Blount MD [Staff Physician] - 06/14/19 10:30 am Disposition: Home, Self-Fdc Medications: Home Medications Medication Instructions Recorded Confirmed Type 1 tab PO DAILY 10/19/18 05/23/19 History vitamin,calcium,kcyeesuu-xczy-adsgo acid tablet sertraline 100 mg tablet 100 mg PO DAILY #90 tab 12/07/18 05/23/19 Rx Labetalol HCl 200 mg PO BID 05/23/19 05/23/19 History Oxycodone HCl/Acetaminophen 1 - 2 tab PO Q4-6H PRN #30 tab 05/26/19 Rx [Percocet 5/325mg tablet] Prescriptions/Medication Reconciliation: New Oxycodone HCl/Acetaminophen [Percocet 5/325mg tablet] 1 - 2 tab PO Q4-6H PRN #30 tab PRN Reason: Severe Pain Continued vitamin,calcium,jhjghpjr-eobb-gukib acid tablet 1 tab PO DAILY sertraline 100 mg tablet 100 mg PO DAILY #90 tab Labetalol HCl 200 mg PO BID
== END 2019-05-26 10:20 | disposition home or self-care (01) | DRG 785 ==
LOC: OB 05:31
PROVIDERS: ADMIT Nurse Practitioner Obstetrics & Gynecology; ATTEND Nurse Practitioner Obstetrics & Gynecology
CPT/HCPCS: 36415; 59025; 80048; 80305; 81001; 82800; 85014; 85018; 85025; 86850; 87086; 88302; 94761; J2405; S0077

== ENCOUNTER → 2019-06-16 10:35 | Observation (INO) ==
[2019-06-15 16:56] LABS: Microscopic, Urine URINE MICROSCOPIC (MICROSCOPIC)
[2019-06-15 16:57] LABS: Appearance,Urine SL CLOUDY (Clear); Bilirubin,Urine Negative (Negative); Blood, Urine 3+ (Negative); Color,Urine YELLOW (Yellow); Glucose,Urine (UA) Negative (Negative); Ketones,Urine Negative (Negative); Leukocyte Esterase,Urine 2+ (Negative); Protein,Urine Negative (Negative); Urobilinogen,Urine 0.2 EU/dl (0.2)
--- NOTE | 2019-06-15 17:06 | History & Physical Report ---
*Admission Date: 06/15/19 *Chief complaint: -induced hypertension, hypertension *History of present illness: She is a 29-year-old 3 para 3 who was 3 weeks post section. She was seen in my office today with a mild headache. Her blood pressure was in the 160/100 range. He has been taking labetalol 200 mg twice daily. Despite this her blood pressure is elevated. Her reflexes were quite brisk in the office so we decided to admit her for observation and possible magnesium sulfate. [facility] History I have reviewed the patient's past medical history: Yes 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: Reports:: Anxiety, Asthma, Depression Denies:: Cancer, Diabetes Mellitus Type 1, Diabetes Mellitus Type 2, Gastrointestinal Bleed, MRSA, Renal Disease, Ulcer *Have you ever received a pneumonia vaccine?: No *Have you received a flu vaccine this season?: No Other Surgeries: Yes: Amputation: No Fractures: No - *Social History Smoking Status: Never smoker Tobacco Type: cigarettes Alcohol Intake: never Substance Use Type: denies use *Occupational Status:: unemployed Housing: house Household Members: spouse, children *Travel in the last 8 weeks: None - Psychiatric History Expresses thoughts of harming self/others: None Suicide Plan Description: No Plan Pschychiatric History:: Reports:: Anxiety, Depression Family Hx:: Hypertension, Asthma 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 Para: 3 Review of Systems - Review of Systems Review of systems:: pertinent systems reviewed and negative unless documented below Meds Home Medications Medication Instructions Recorded Confirmed Type 1 tab PO DAILY 10/19/18 06/15/19 History vitamin,calcium,mfrfgwxi-pfhw-hscmu acid tablet sertraline 100 mg tablet 100 mg PO DAILY #90 tab 12/07/18 06/15/19 Rx RX: Labetalol HCl 200 mg PO BID 05/23/19 06/15/19 History Oxycodone HCl/Acetaminophen 1 - 2 tab PO Q4-6H PRN #30 tab 05/26/19 06/15/19 Rx [Percocet 5/325mg tablet] nifedipine ER 60 mg 60 mg PO DAILY #30 tab 06/15/19 06/15/19 Rx tablet,extended release 24 hr Allergies Allergy/AdvReac Type Severity Reaction Status Date / Time citalopram [From Celexa] Allergy Mild Rash Verified 06/15/19 15:00 duloxetine [From Cymbalta] Allergy Mild Verified 06/15/19 15:00 amoxicillin [From AUGMENTIN] Allergy Unknown Verified 06/15/19 15:00 clavulanic acid Allergy Unknown Verified 06/15/19 15:00 [From AUGMENTIN] Exam Vital signs and Labs for Last 24 Hours: Temp Pulse Resp BP Pulse Ox 98.3 F 76 18 152/107 H 96 06/15/19 17:00 06/15/19 17:00 06/15/19 17:00 06/15/19 17:00 06/15/19 17:00 Laboratory Results - last 24 hr 06/15/19 16:05: Urine Color Yellow, Urine Appearance Sl cloudy, Urine pH 6.0, Ur Specific [place] 1.020, Urine Protein Negative, Urine Glucose (UA) Negative, Urine Ketones Negative, Urine Blood 3+, Urine Nitrate Negative, Urine Bilirubin Negative, Urine Urobilinogen 0.2, Ur Leukocyte Esterase 2+ A I & O for Last 24 hours: Intake & Output 06/13/19 06/14/19 06/15/19 06/16/19 11:59 11:59 11:59 11:59 Weight 155 lb 11.464 oz - Constitutional no acute distress - *Routine HEENT Exam Head: Present: normocephalic Eye: Present: EOMI, PERRL ENT: Present: mucous membranes moist - *Routine Neck Exam Present: supple, full ROM - *Routine Respiratory Exam Absent: accessory muscle use (good air entry bilaterally), wheezes, crackles - *Routine Cardiovascular Exam Present: RRR. Absent: murmur - *Routine Abdominal Exam Present: soft, normoactive bowel sounds, surgical scars. Absent: tenderness, rebound, guarding, mass - *Routine Rectal Exam Patient deferred: visual exam, digital exam - *Routine Exam Patient deferred: external exam, groin exam, perineal exam - *Routine Extremities Exam Present: full ROM. Absent: cyanosis, edema, calf tenderness - *Routine Skin Exam Present: intact (good color) - *Routine Neurological Exam Present: alert, oriented X3, normal reflexes Her reflexes are brisk and she has 2 beats of clonus. - Routine Psychiatric Exam Present: normal affect Assessment and Plan (1) induced hypertension, Current visit: Yes Status: Acute Category: Medical Code(s): O13.5 - Gestational [-induced] hypertension without significant proteinuria, complicating the puerperium - Assessment and plan all Dx Assessment and Plan for all problems:: We will admit her for observation. We will plan to give her labetalol 400 mg twice daily and we will go ahead and start magnesium sulfate. We will plan to keep her for the next 24 hours at least.
[2019-06-15 17:08] LABS: Basophils # 0.1 K/mm3 (0-0.2); Basophils % 0.7 % (0.1-2.0); Eosinophils # 1.2 K/mm3 (0.0-0.4); Eosinophils % 12.6 % (0.1-12.0); Hematocrit 40.3 % (37.0-47.0); Hemoglobin 13.6 g/dL (12.2-16.2); Lymphocytes # 3.3 K/mm3 (0.7-4.5); Lymphocytes % 34.2 % (10-50); Mean Corpuscular HGB Conc 33.8 g/dL (31.8-35.4); Mean Corpuscular Volume 87.2 fl (81-99); Mean Platelet Volume 7.1 fl (7.4-10.4); Monocytes # 0.5 K/mm3 (0.1-1.0); Monocytes % 4.7 % (1.7-9.3); Neutrophils # 4.7 K/mm3 (1.8-7.8); Neutrophils % 47.8 % (37.0-80.0); Platelet Count 573 K/mm3 (142-424); Red Blood Count 4.62 M/mm3 (4.20-5.40); Red Cell Distribution Width 13.1 % (11.5-17.5); White Blood Count 9.7 K/mm3 (4.8-10.8)
[2019-06-15 17:14] LABS: Activated Partial Thrombo Time 29.5 seconds (23.6-34.0); Fibrinogen 242 mg/dL (204-500); INR 1.03 (0.9-1.1); Prothrombin Time 10.7 seconds (9.4-11.8)
[2019-06-15 17:16] LABS: Uric Acid 5.2 mg/dL (2.6-7.2)
[2019-06-15 17:27] LABS: Bacteria,Urine 1+ /lpf
[2019-06-15 18:04] LABS: D-Dimer < 100 ng/mL (0-400)
[2019-06-16 08:55] VITALS: BP 125/85
--- NOTE | 2019-06-16 09:44 | Discharge Summary ---
General - General Admission date:: 06/15/19 Discharge date: 06/16/19 HPI HPI: She is a 29-year-old 3 para 3 who was 3 weeks post section. She was seen in my office today with a mild headache. Her blood pressure was in the 160/100 range. He has been taking labetalol 200 mg twice daily. Despite this her blood pressure is elevated. Her reflexes were quite brisk in the office so we decided to admit her for observation and possible magnesium sulfate. Hospital Course Hospital Course: We started her on 400 mg twice daily of labetalol and this seemed to reduce her blood pressure to the normal range. We did not need to start her on magnesium sulfate. All of her blood work was normal. Specifically her liver function tests, platelets and uric acid. We will plan to send her home to follow-up with me in approximately 4 days time. She would also like to increase her Zoloft to 200 mg daily. We will call her in a prescription for this. Her condition on discharge is stable and improved Objective Vital signs: Temp Pulse Resp BP Pulse Ox 98.7 F 75 18 125/85 97 06/16/19 07:55 06/16/19 07:55 06/16/19 07:55 06/16/19 08:55 06/16/19 07:55 no acute distress Results Labs on day of discharge: Labs from last 24 hours 06/15/19 06/15/19 06/15/19 16:50 16:50 16:50 WBC 9.7 RBC 4.62 Hgb 13.6 Hct 40.3 MCV 87.2 MCH 29.5 MCHC 33.8 RDW 13.1 Plt Count 573 H MPV 7.1 L Neut % (Auto) 47.8 Lymph % (Auto) 34.2 [place] % (Auto) 4.7 Eos % (Auto) 12.6 H Baso % (Auto) 0.7 Neut # (Auto) 4.7 Lymph # (Auto) 3.3 [place] # (Auto) 0.5 Eos # (Auto) 1.2 H Baso # (Auto) 0.1 PT 10.7 INR 1.03 APTT 29.5 Fibrinogen 242 D-Dimer < 100 Sodium 139 Potassium 4.0 Chloride 103 Carbon Dioxide 27 Anion Gap 13.0 BUN 11 Creatinine 0.80 Estimated Creat Clear 118 Estimated GFR 86 Est GFR ( Amer) 104 Glucose 90 Uric Acid 5.2 Calcium 9.0 Magnesium 1.9 AST 12 L ALT 33 Urine Color Urine Appearance Urine pH Ur Specific [place] Urine Protein Urine Glucose (UA) Urine Ketones Urine Blood Urine Nitrate Urine Bilirubin Urine Urobilinogen Ur Leukocyte Esterase Urine RBC Urine WBC Ur Squamous Epith Cells Urine Bacteria 06/15/19 16:05 WBC RBC Hgb Hct MCV MCH MCHC RDW Plt Count MPV Neut % (Auto) Lymph % (Auto) [place] % (Auto) Eos % (Auto) Baso % (Auto) Neut # (Auto) Lymph # (Auto) [place] # (Auto) Eos # (Auto) Baso # (Auto) PT INR APTT Fibrinogen D-Dimer Sodium Potassium Chloride Carbon Dioxide Anion Gap BUN Creatinine Estimated Creat Clear Estimated GFR Est GFR ( Amer) Glucose Uric Acid Calcium Magnesium AST ALT Urine Color Yellow Urine Appearance Sl cloudy Urine pH 6.0 Ur Specific [place] 1.020 Urine Protein Negative Urine Glucose (UA) Negative Urine Ketones Negative Urine Blood 3+ Urine Nitrate Negative Urine Bilirubin Negative Urine Urobilinogen 0.2 Ur Leukocyte Esterase 2+ A Urine RBC 3-5 Urine WBC 10-20 Ur Squamous Epith Cells None Urine Bacteria 1+ DS: Diagnosis - Discharge Diagnosis (1) induced hypertension, Status: Acute Discharge Plan - Patient Discharge Instructions ACTIVITY: No heavy lifting DIET: continue same diet Additional Instructions: Continue to take blood pressure medications as prescribed every day. Patient Instructions: High Blood Pressure (Hypertension) (Alternative Therapy), DI for Pre-eclampsia, Labetalol Oral - Follow up Plan Disposition: Home, Self-Intermediate Medications: Home Medications Medication Instructions Recorded Confirmed Type 1 tab PO DAILY 10/19/18 06/15/19 History vitamin,calcium,emgmpjeu-yeaq-aixtl acid tablet sertraline 100 mg tablet 100 mg PO DAILY #90 tab 12/07/18 06/15/19 Rx Labetalol HCl 200 mg PO BID 05/23/19 06/15/19 History Oxycodone HCl/Acetaminophen 1 - 2 tab PO Q4-6H PRN #30 tab 05/26/19 06/15/19 Rx [Percocet 5/325mg tablet] NIFEdipine [Nifedipine ER] 60 mg PO DAILY 06/15/19 06/15/19 History Labetalol HCl 400 mg PO DAILY #30 tab 06/16/19 Rx Sertraline HCl [Zoloft 100mg 200 mg PO DAILY #30 tab 06/16/19 Rx tablet] Prescriptions/Medication Reconciliation: New Labetalol HCl 400 mg PO DAILY #30 tab Sertraline HCl [Zoloft 100mg tablet] 200 mg PO DAILY #30 tab Continued vitamin,calcium,slhgzdsh-zqsg-tfljh acid tablet 1 tab PO DAILY Oxycodone HCl/Acetaminophen [Percocet 5/325mg tablet] 1 - 2 tab PO Q4-6H PRN #30 tab PRN Reason: Severe Pain Discontinued sertraline 100 mg tablet 100 mg PO DAILY #90 tab Labetalol HCl 200 mg PO BID NIFEdipine [Nifedipine ER] 60 mg PO DAILY - Problem Reconciliation Problems Reviewed?: Yes
== END | disposition home or self-care (01) ==
LOC: OB
PROVIDERS: ADMIT Nurse Practitioner Obstetrics & Gynecology; ATTEND Nurse Practitioner Obstetrics & Gynecology
CPT/HCPCS: 80048; 81001; 83735; 84450; 84460; 84550; 85025; 85378; 85384; 85610; 85730; 87086; G0378

== ENCOUNTER 2020-04-02 00:02 | Observation (INO) | payer MEDICAID, SELFPAY ==
[2020-04-02] VITALS (29 sets, daily range): BP systolic 119–163; BP diastolic 72–115; PULSE 65–120; RESP 14–22; TEMP 36.1–37.2; O2SAT 92–100; BMI 27.6; BMI 27.1
[2020-04-02 00:18] LABS: Microscopic, Urine URINE MICROSCOPIC (MICROSCOPIC)
[2020-04-02 00:19] LABS: Appearance,Urine CLEAR (Clear); Bilirubin,Urine Negative (Negative); Blood, Urine Negative (Negative); Color,Urine YELLOW (Yellow); Glucose,Urine (UA) Negative (Negative); Ketones,Urine Negative (Negative); Leukocyte Esterase,Urine Negative (Negative); Nitrate,Urine Negative (Negative); PH,Urine 7.5 (5.0-8.5); Protein,Urine Negative (Negative); Urobilinogen,Urine 0.2 EU/dl (0.2)
--- NOTE | 2020-04-02 00:23 | CT_ITS ---
Procedure: CT ABDOMEN PELVIS W CON Patient Age:30Y CLINICAL INDICATION: right side abd pain Right-sided abdominal pain since 7 p.m. on 04/02/2020 COMPARISON: No exams were available for comparison TECHNIQUE: IV contrast utilized: 75 cc Optiray 350. No oral contrast Axial images obtained with sagittal and coronal reformats. All CT scans at the facility use one or more dose reduction, viz: automated exposure control, ma/kV adjustment per patient size (including targeted exams where dose is matched to indication, i.e. head), or iterative reconstruction technique. FINDINGS: Lower thorax: No acute finding lung bases clear. Heart normal size and unremarkable a ABDOMEN: Liver: No masses or biliary dilatation. Gallbladder: Nondistended. No radio opaque stones.. Common duct unremarkable. Normal Pancreas: No masses or peripancreatic fluid collections. Spleen: unremarkable Adrenals: unremarkable tract---------. KIDNEYS/URETERS: No urinary tract calculi. Left kidney unremarkable. Right kidney. Subtle slight relative fullness at the right renal pelvis and collecting system vs left. Also the right ureter is slightly more generous than the left ureter-most likely due to to the extrinsic compression right ureter by the iliac vessels . No ureteral calculi are evident. PELVIS:. Urinary bladder small contracted unremarkable the uterus generous size mainly generous girth: Nearly 10 cm length X 5 cm height X 7 cm transverse Left ovary: Mildly enlarged measuring 4.6 cm maximum length on sagittal image. X 2.2 cm transverse x 3.5 cm AP.. Particularly note 17 mm cyst with wall enhancement of may reflect a recent ruptured follicle possibly? Right ovary: 4.2 cm height 2.1 cm transverse 2.5 cm AP. Minimal fluid cul-de-sac could be physiologic GI tract APPENDIX: Findings suggestive of EARLY APPENDICITIS by CT. Clinical correlation required. Would concur with preliminary v [facility] report Mildly dilated fluid-filled appendix measuring up to 9.5 mm diameter,, with mild enhancement slightly thickened appendix wall. Little if any fat stranding adjacent to the appendix evident. At best only question some scant hazy appearance in this regard. However all overall findings are suggestive of early acute appendicitis. Stomach bowel: Nondistended. No obvious mass or thickening. Peritoneum: Period. No free air. Suggestion of small developing fat containing umbilical hernia. No inflammation Lymph nodes: . Scattered mesenteric nodes which are most numerous towards RLQ- adjacent to terminal ileum and appendix but large these measuring just over 1 cm but the No significant enlarged retroperitoneal, periaortic nodes or pelvic lymph nodes.. Vasculature: Unremarkable Bones: No acute fractureNo lesions. Note degenerative disc bulge L5/S1 and to less degree L4/5. IMPRESSION: .1..Findings suggest early Appendicitis by CT. Clinical correlation required. Mild enhancement of slight thickened wall, of mildly dilated fluid-filled appendix-. Compatible with early appendicitis. 2.Minimal fluid cul-de-sac nonspecific-most likely merely physiologic but . Ovaries generous/mildly prominent size bilaterally fall with likely numerous follicles. Would note enhancing margin at 17 mm cyst left ovary. Nonspecific 3. Subtle relative fullness of the right pelvocaliceal system as well as right ureter to the pelvis-appears to be merely due to compression from crossing iliac vessels. But would benefit correlation with urinalysis. No urinary tract calculi evident Dictated by: Deondre Mueller MD 04/02/2020 09:54 Electronically signed by Deondre Mueller MD in [place]
[2020-04-02 00:28] LABS: Barbiturates Screen,Urine Positive ng/ml (<200); Benzodiazepines Screen,Urine Negative ng/ml (<200)
[2020-04-02 00:29] LABS: Amphetamine/Metha Screen,Urine Negative ng/ml (<1000)
[2020-04-02 00:30] LABS: Cannabinoid Screen,Urine Positive ng/ml (<50); Cocaine Screen,Urine Negative ng/ml (<300)
[2020-04-02 00:31] LABS: Amorphous Sediment,Urine Trace /lpf; Methadone Screen,Urine Negative ng/ml (<300); WBC,Urine Occasional #/hpf (0-3)
[2020-04-02 00:32] LABS: Opiate Screen,Urine Negative ng/ml (<300); Phencyclidine Screen,Urine Negative ng/ml (<25)
[2020-04-02 00:33] LABS: Basophils # 0.2 K/mm3 (0-0.2); Eosinophils # 0.5 K/mm3 (0.0-0.4); Eosinophils % 2.1 % (0.1-12.0); Hematocrit 46.7 % (37.0-47.0); Lymphocytes # 2.9 K/mm3 (0.7-4.5); Lymphocytes % 13.2 % (10-50); Mean Corpuscular HGB Conc 34.2 g/dL (31.8-35.4); Mean Corpuscular Hemoglobin 30.1 pg (27.0-31.2); Mean Platelet Volume 7.4 fl (7.4-10.4); Monocytes # 0.9 K/mm3 (0.1-1.0); Monocytes % 3.9 % (1.7-9.3); Neutrophils # 17.5 K/mm3 (1.8-7.8); Neutrophils % 79.8 % (37.0-80.0); Platelet Count 389 K/mm3 (142-424); Red Blood Count 5.31 M/mm3 (4.20-5.40)
[2020-04-02 00:36] LABS: Alanine Aminotransferase 23 U/L (12-78); Albumin Level 5.2 g/dl (3.5-5.0); Albumin/Globulin Ratio 1.3 (1.1-1.8); Alkaline Phosphatase 87 U/L (38-126); Amylase 104 U/L (30-110); Anion Gap 11.3 mEq/L (5-15); Aspartate Amino Transferase 43 U/L (14-36); Bilirubin,Total 0.5 mg/dl (0.2-1.3); Blood Urea Nitrogen 9 mg/dl (7-17); Calcium 9.6 mg/dl (8.4-10.2); Carbon Dioxide 28 mmol/L (22.0-30.0); Chloride 102 mmol/L (98-107); Creatinine Clearance Estimated 146 mL/min (50-200); Estimated Glomerular Filt Rate 119 ml/min (>60); GFR (African American) 144 ML/MIN (>60); Globulin 3.9 g/dL (1.3-3.2); Glucose 97 mg/dl (74-100); Lipase 180 U/L (23-300); Potassium 3.3 mmoL/L (3.5-5.1); Sodium 138 mmol/L (136-145); Total Protein,Serum 9.1 g/dl (6.3-8.2); White Blood Count 21.9 K/mm3 (4.8-10.8)
[2020-04-02 00:38] LABS: MANUAL DIFFERENTIAL MANUAL DIFFERENTIAL (MANUAL DIFF)
[2020-04-02 00:42] LABS: Lymphocytes % 12 % (10-50); Monocytes % 3 % (2-9); Neutrophils % 81 % (42-76); Platelet Estimate Normal; RBC Morphology Normal; Total Cells Counted 100
--- NOTE | 2020-04-02 00:45 | [facility].EDNVD ---
ED Disposition Clinical Impression: SIRS (systemic inflammatory response syndrome) Acute appendicitis Qualifiers: Acute appendicitis type: unspecified acute appendicitis type Qualified Code(s): K35.80 - Unspecified acute appendicitis Disposition: Admitted As Inpatient Condition on Discharge: Good Instructions: DI for Acute Abdomen Referrals: Leticia Dillon PA [Primary Care Provider] - - Critical Care Critical Care Time: No Attestation: On 04/02/20, the high probability of a clinically significant, sudden or life threatening deterioration of the following system(s) required my full and direct attention, intervention and personal management. The time I documented below is in addition to time spent performing reported procedures but includes the following listed in this critical care notation. Medical Decision Making - Medical Records Medical records reviewed: Yes: I reviewed the patient's medical records. - [place] Inquiry Pt receiving controlled substance: No Vital Signs: 04/02/20 00:22 04/02/20 01:38 Temperature 98.1 F Temperature Source Oral Pulse Rate [Right Brachial] 120 H 102 H Respiratory Rate 14 14 Blood Pressure [Right Arm] 154/104 H 163/115 H Blood Pressure Mean [Right Arm] 120 131 Blood Pressure Source [Right Arm] Automatic Cuff Blood Pressure Position [Right Arm] Sitting Sitting 02 Sat by Pulse Oximetry 99 99 Oxygen Delivery Method Room Air Room Air - Lab Data Lab results reviewed: Yes: I reviewed the patient's lab results. Lab Results 04/02/20 00:09: Urine Color Yellow, Urine Appearance Clear, Urine pH 7.5, Ur Specific [place] 1.020, Urine Protein Negative, Urine Glucose (UA) Negative, Urine Ketones Negative, Urine Blood Negative, Urine Nitrate Negative, Urine Bilirubin Negative, Urine Urobilinogen 0.2, Ur Leukocyte Esterase Negative, Urine WBC Occasional, Ur Squamous Epith Cells 5-10, Amorphous Sediment Trace 04/02/20 00:09: Urine Opiates Screen Negative, Urine Methadone Screen Negative, Ur Barbituates Screen Positive H, Ur Phencyclidine Scrn Negative, Ur Amphetamines Screen Negative, U Benzodiazepines Scrn Negative, Urine Cocaine Screen Negative, U Marijuana (THC) Screen Positive H 04/02/20 00:09: Urine HCG, Qual Negative 04/02/20 00:15: WBC 21.9 H*, RBC 5.31, Hgb 16.0, Hct 46.7, MCV 88.0, MCH 30.1, MCHC 34.2, RDW 13.0, Plt Count 389, MPV 7.4, Neut % (Auto) 79.8, Lymph % (Auto) 13.2, [place] % (Auto) 3.9, Eos % (Auto) 2.1, Baso % (Auto) 1.0, Neut # (Auto) 17.5 H, Lymph # (Auto) 2.9, [place] # (Auto) 0.9, Eos # (Auto) 0.5 H, Baso # (Auto) 0.2, Total Counted 100, Neutrophils % (Manual) 81 H, Band Neutrophils % 4.0, Lymphocytes % (Manual) 12, Monocytes % (Manual) 3, Platelet Estimate Normal, RBC Morphology Normal 04/02/20 00:15: Sodium 138, Potassium 3.3 L, Chloride 102, Carbon Dioxide 28, Anion Gap 11.3, BUN 9, Creatinine 0.60, Estimated Creat Clear 146, Estimated GFR 119, Est GFR ( Amer) 144, Glucose 97, Calcium 9.6, Total Bilirubin 0.5, AST 43 H, ALT 23, Alkaline Phosphatase 87, Total Protein 9.1 H, Albumin 5.2 H, Globulin 3.9 H, Albumin/Globulin Ratio 1.3, Amylase 104, Lipase 180 04/02/20 01:20: Lactate 1.2 Result diagrams: 04/02/20 00:15 04/02/20 00:15 Orders (Tests/Meds): ED MEDICATIONS Generic Name Dose Route Start Last Admin Trade Name Freq PRN Reason Stop Dose Admin Metronidazole 500 mg in 100 mls @ 100 mls/hr 04/02/20 01:41 Flagyl 500mg/100ml Ivpb IV 04/02/20 02:40 ONCE ONE Protocol Levofloxacin/Dextrose 500 mg in 100 mls @ 100 mls/hr 04/02/20 01:43 Levaquin 500mg/100ml Premix IV 04/02/20 02:42 ONCE ONE Protocol Discontinued Medications Generic Name Dose Route Start Last Admin Trade Name Freq PRN Reason Stop Dose Admin Hydromorphone HCl 1 mg 04/02/20 01:41 Dilaudid 2mg/Ml Syringe IV 04/02/20 01:42 ONCE ONE Ioversol 75 ml 04/02/20 01:14 04/02/20 01:15 Rad-Optiray 350 100ml Vial IV 04/02/20 01:15 75 ml ONCE O
--- NOTE | 2020-04-02 01:11 | PC.NURSE ---
back to room via [facility] and two way radio installer
[2020-04-02 01:16] LABS: Urine Pregnancy, HCG Qual. Negative (Negative)
--- NOTE | 2020-04-02 01:35 | PC.NURSE ---
discussing case with dr colon
[2020-04-02 01:41] LABS: Lactic Acid 1.2 mmol/L (0.7-2.1)
--- NOTE | 2020-04-02 02:20 | PC.NURSE ---
PT ARRIVED TO THE FLOOR VIA W/C FROM ED 021
--- NOTE | 2020-04-02 06:06 | PC.NURSE ---
Pt arrived to floor with n/v. Voided x1 dark, yellow urine. She is currently NPO at this time for appendectomy this AM per MD Meeks. BP elevated at times and has improved this AM. Call light within reach. Safety measures are currently in place. Will continue to monitor.
[2020-04-02 06:15] LABS: Basophils % 0.2 % (0.1-2.0); Eosinophils # 0.2 K/mm3 (0.0-0.4); Eosinophils % 1.2 % (0.1-12.0); Hematocrit 40.6 % (37.0-47.0); Lymphocytes # 1.9 K/mm3 (0.7-4.5); Lymphocytes % 11.8 % (10-50); Mean Corpuscular HGB Conc 34.5 g/dL (31.8-35.4); Mean Corpuscular Hemoglobin 30.3 pg (27.0-31.2); Mean Corpuscular Volume 87.8 fl (81-99); Mean Platelet Volume 7.7 fl (7.4-10.4); Monocytes # 0.5 K/mm3 (0.1-1.0); Monocytes % 3.4 % (1.7-9.3); Neutrophils # 13.1 K/mm3 (1.8-7.8); Neutrophils % 83.3 % (37.0-80.0); Platelet Count 316 K/mm3 (142-424); Red Blood Count 4.62 M/mm3 (4.20-5.40); Red Cell Distribution Width 12.9 % (11.5-17.5); White Blood Count 15.7 K/mm3 (4.8-10.8)
[2020-04-02 06:18] LABS: Chloride 105 mmol/L (98-107); Sodium 135 mmol/L (136-145)
[2020-04-02 06:19] LABS: Potassium 3.5 mmoL/L (3.5-5.1)
[2020-04-02 06:21] LABS: Blood Urea Nitrogen 6 mg/dl (7-17); Creatinine Clearance Estimated 173 mL/min (50-200); Estimated Glomerular Filt Rate 147 ml/min (>60); GFR (African American) 178 ML/MIN (>60)
[2020-04-02 06:22] LABS: Anion Gap 9.5 mEq/L (5-15); Carbon Dioxide 24 mmol/L (22.0-30.0); Glucose 108 mg/dl (74-100)
[2020-04-02 06:32] LABS: Hemoglobin 14.1 g/dL (12.2-16.2)
[2020-04-02 06:33] LABS: Calcium 7.7 mg/dl (8.4-10.2)
--- NOTE | 2020-04-02 06:49 | PC.NURSE ---
LATE ENTRY -619 DR. BARTON CALLED AND STATED TO ME THAT HE WAS GOING TO PERFORM TWO SURGERIES THIS MORNING. THAT HE WOULD BE TAKING THE PATIENT IN ROOM 203 FIRST. THEN THE OTHER PATIENT IN ROOM. 212. I WAS ASK TO NOTIFY THE NURSES WHO WAS TAKING CARE OF THE TWO PATIENTS OF HIS PLANS AND TO NOTIFY [facility] [employer] TO CALL IN THE ANALYTICAL SCIENTIST OR TEAM..DAVID FRIAS ,DAVID ROTH AND HOUSE KINDRA MOY WAS ALL NOTIFIED.
--- NOTE | 2020-04-02 07:15 | HMH.GSHP ---
HPI HPI: Patient is a 30-year-old female from [place]. She states that she was in her usual state of health until yesterday afternoon approximately 7 PM. She experienced right upper quadrant pain radiating to the right lower quadrant and into her back. This persisted and she presented to the emergency department early this morning. She underwent evaluation which revealed leukocytosis. She had CT scan which revealed findings of 9 mm appendix with enhancing wall consistent with appendicitis. [facility] History I have reviewed the patient's past medical history: Yes 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: Reports:: Anxiety, Asthma, Depression, Hypertension Denies:: Cancer, Diabetes Mellitus Type 1, Diabetes Mellitus Type 2, Gastrointestinal Bleed, MRSA, Renal Disease, Ulcer *Have you ever received a pneumonia vaccine?: No *Have you received a flu vaccine this season?: No Other Surgeries: Yes: , Tubal Ligation Amputation: No Fractures: No - *Social History Smoking Status: Current every day smoker Tobacco Type: cigarettes # Packs/Day (cigarettes): 1 Alcohol Intake: never Substance Use Type: denies use *Occupational Status:: unemployed Housing: house Household Members: spouse, children *Travel in the last 8 weeks: None - Psychiatric History Pschychiatric History:: Reports:: Anxiety, Depression Family Hx:: Asthma, Diabetes, Hypertension 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 Review of Systems - Review of Systems Review of systems:: pertinent systems reviewed and negative unless documented below - *Neurologic Denies localized weakness, Denies seizure-like activity Meds Home Medications Medication Instructions Recorded Confirmed Type vitamin with calcium 1 tab PO DAILY 01/09/20 04/02/20 History no.72-iron 27 mg-folic acid 1 mg tablet sertraline 100 mg tablet 100 mg PO DAILY 01/09/20 04/02/20 History phentermine 37.5 mg tablet 37.5 mg PO DAILY #30 tab 03/13/20 04/02/20 Rx Allergies Allergy/AdvReac Type Severity Reaction Status Date / Time citalopram Allergy Unknown Verified 04/02/20 00:27 clavulanic acid Allergy Unknown Verified 04/02/20 00:27 [From Augmentin] duloxetine Allergy Unknown Verified 04/02/20 00:27 Exam Vital signs and Labs for Last 24 Hours: Temp Pulse Resp BP Pulse Ox 98.6 F 85 16 123/82 99 04/02/20 04:00 04/02/20 04:00 04/02/20 04:00 04/02/20 04:00 04/02/20 04:00 Laboratory Results - last 24 hr 04/02/20 00:09: Urine Color Yellow, Urine Appearance Clear, Urine pH 7.5, Ur Specific [place] 1.020, Urine Protein Negative, Urine Glucose (UA) Negative, Urine Ketones Negative, Urine Blood Negative, Urine Nitrate Negative, Urine Bilirubin Negative, Urine Urobilinogen 0.2, Ur Leukocyte Esterase Negative, Urine WBC Occasional, Ur Squamous Epith Cells 5-10, Amorphous Sediment Trace 04/02/20 00:09: Urine Opiates Screen Negative, Urine Methadone Screen Negative, Ur Barbituates Screen Positive H, Ur Phencyclidine Scrn Negative, Ur Amphetamines Screen Negative, U Benzodiazepines Scrn Negative, Urine Cocaine Screen Negative, U Marijuana (THC) Screen Positive H 04/02/20 00:09: Urine HCG, Qual Negative 04/02/20 00:15: WBC 21.9 H*, RBC 5.31, Hgb 16.0, Hct 46.7, MCV 88.0, MCH 30.1, MCHC 34.2, RDW 13.0, Plt Count 389, MPV 7.4, Neut % (Auto) 79.8, Lymph % (Auto) 13.2, Early % (Auto) 3.9, Eos % (Auto) 2.1, Baso % (Auto) 1.0, Neut # (Auto) 17.5 H, Lymph # (Auto) 2.9, Early # (Auto) 0.9, Eos # (Auto) 0.5 H, Baso # (Auto) 0.2, Total Counted 100, Neutrophils % (Manual) 81 H, Band Neutrophils % 4.0, Lymphocytes % (Manual) 12, Monocytes % (Manual) 3, Platelet Estimate Normal, RBC Morphology Normal 04/02/20 00:15: Sodium 138, Potassium 3.3 L, Chloride 102, Carbon Dioxide 28, Anion Gap 11.3, BUN 9, Creatinine 0.60, Estimated Creat Clear 146, Estimated GFR 119, Est GFR ( Amer) 144, Glucose 97, Calcium 9.6, Total Bilirubin 0.5, AST 43 H, ALT 23, Alkaline Phosphatase 87, Total Protein 9.1 H, Albumin 5.2 H,
--- NOTE | 2020-04-02 10:18 | P.OP_ITS ---
Date of procedure: 04/02/20 Pre-op Diagnosis:: Acute appendicitis Post-op Diagnosis:: Same Procedure performed:: Laparoscopic appendectomy Surgeon:: Nitesh Meeks MD [employer]EN[employer] FRAME WIRER:: Anderson Ramsey Anesthesia: HARRISON Estimated blood loss (mL): 25 Clinical Note:: Patient is a 30-year-old female from [place]. She states that she was in her usual state of health until yesterday afternoon approximately 7 PM. She experienced right upper quadrant pain radiating to the right lower quadrant and into her back. This persisted and she presented to the emergency department early this morning. She underwent evaluation which revealed leukocytosis. She had CT scan which revealed findings of 9 mm appendix with enhancing wall consistent with appendicitis. She had nausea and vomiting. She was appreciably tender on examination. Arrangements were made for appendectomy. Operative findings:: She had an acutely inflamed appendix characterized by an edematous mildly indurated appendix without suppuration or necrosis. Consistent with early acute appendicitis Operative note:: Consent was obtained. Patient was taken to the operating room. She was given preoperative intravenous antibiotics. She was positioned in a supine position. General anesthesia was induced via endotracheal tube. Oneal catheter was placed. Abdomen was prepped and draped in the standard surgical fashion. Subumbilical skin incision was performed and while performing abdominal wall lift Veress needle was inserted. CO2 pneumoperitoneum was achieved to 15 mmHg. 12 mm optical trocar was inserted at the umbilicus. Intraperitoneal contents were visualized. 5 mm suprapubic trocar was inserted and 5 mm trocar was insert ed in the right upper abdomen. 10 mm 30 degree laparoscope was inserted through the right upper abdominal trocar site. Appendix was clearly identified. It was somewhat edematous and mildly indurated consistent with early acute appendicitis. The appendix was grasped with an endoscopic Kennedy and retracted anteriorly. Mesoappendix was carefully divided with ELA ultrasonic robotic radha with care taken to coagulate the appendiceal artery and the process. Dissection was carried down to the appendiceal base. The appendix was divided at its base with an endoscopic TRISTA linear cutting stapling device. Appendix was placed within an Endo Catch retrieval device and removed from the peritoneal cavity via the umbilical trocar site which required minor stretching of the fascial incision for removal of the appendix. Pelvis and pericecal region were irrigated and aspirated. There was some minor oozing from the appendiceal staple line and a single laparoscopic Hemoclip was placed resulting in good hemostasis. Additional irrigation was performed of the pericecal location and perihepatic space and aspirated until clear. There appeared to be good hemostasis. Trochars were then removed as CO2 pneumoperitoneum was evacuated. Fascia at the umbilicus was closed with an interrupted 0 Vicryl suture. Local anesthetic was infiltrated. Skin incisions were closed with 4-0 Monocryl in a subcuticular fashion. Steri-Strips and dressings were applied. Condition: stable Disposition: PACU Specimens:: Appendix Complications:: None immediately apparent
--- NOTE | 2020-04-02 10:35 | HMH.ANESCL ---
[facility] Anesthesia Checklist - Patient Identification Patient Identification: Arm Band, Verbal (Name & ) - Structural Data Admitted From: Inpatient Planned Operative Procedure/s: lap appy Consent for Planned Operative Procedure(s) Verified: Yes Verified Documents: History and Physical - NPO Status Verified Time NPO: 00:00 - Additional verifications Patient : No Anesthesia Reactions: No Hx Blood Transfusions: No Blood Transfusion Reaction: No Cephalosporin Allergy: No Previous Colonoscopy: No - Cardiovascular Assessment Heart Sounds: S1 & S2 Pulse Strength: Baseline Pulse Rhythm: Regular Peripheral Edema: No - Airway Assessment C-Spine Mobility Assessed: Yes TMJ Mobility Assessed: Yes Dentition: Good Dentition - Neurological Assessment Level of Consciousness: Awake, Alert, Appropriate Hx Seizures: No Numbness or tingling in extremities: No - Anesthesia Plan Anesthesia Risk discussed: Yes Anesthesia Plan: Verified ASA Class: II Anesthesia Type: General [facility] History I have reviewed the patient's past medical history: Yes 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: Reports:: Anxiety, Asthma, Depression, Hypertension Denies:: Cancer, Diabetes Mellitus Type 1, Diabetes Mellitus Type 2, Gastrointestinal Bleed, MRSA, Renal Disease, Ulcer *Have you ever received a pneumonia vaccine?: No *Have you received a flu vaccine this season?: No Anesthesia experience/problems:: none Other Surgeries: Yes: , Tubal Ligation Amputation: No Fractures: No - *Social History Smoking Status: Current every day smoker Tobacco Type: cigarettes # Packs/Day (cigarettes): 1 Alcohol Intake: never Substance Use Type: denies use *Occupational Status:: unemployed Housing: house Household Members: spouse, children *Travel in the last 8 weeks: None - Psychiatric History Pschychiatric History:: Reports:: Anxiety, Depression Family Hx:: Asthma, Diabetes, Hypertension 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
--- NOTE | 2020-04-02 10:39 | HMH.ANESI ---
[facility] Anesthesia Record Part I Intake, IV Amount: 800 Estimated blood loss (mL): 10 Urine output (mL): 600 Blood Products used (#): none Blood Pressure: 140/97 SaO2: 100 Pulse Rate: 79 Respiratory Rate: 20 Temperature: 97.6 F Patient is:: Drowsy, Stable Stable to PACU at:: 10:31
--- NOTE | 2020-04-02 11:30 | HMH.PHAVTE ---
[facility] Pharmacy VTE Monitoring - Patient Demographics Admission date: 04/02/20 Report Date: 04/02/20 Time: 11:30 Allergies/Adverse Reactions: Patient Allergies citalopram Allergy (Unknown, Verified 04/02/20 00:27) clavulanic acid [From Augmentin] Allergy (Unknown, Verified 04/02/20 00:27) duloxetine Allergy (Unknown, Verified 04/02/20 00:27) Height: 1.55 m Weight: 65.346 kg Patient Problems: Current Active Problems (Last Updated 11/30/17 @ 08:45 by RAFAT Melendez) Acute appendicitis (Acute) SIRS (systemic inflammatory response syndrome) (Acute) - VTE Risk Labs: VTE Related Lab Results Hgb 14.1 g/dL (12.2-16.2) D 04/02/20 05:31 Hct 40.6 % (37.0-47.0) 04/02/20 05:31 Plt Count 316 K/mm3 (142-424) 04/02/20 05:31 BUN 6 mg/dl (7-17) L D 04/02/20 05:31 Creatinine 0.50 mg/dl (0.52-1.04) L 04/02/20 05:31 Estimated Creat Clear 173 mL/min (50-200) 04/02/20 05:31 VTE Score: 0 VTE Risk Level: Low Risk - Prophylaxis VTE Prophylaxis Ordered?: Yes Types of VTE Prophylaxis: TEDS Knee High Location of Applied Device: Bilateral Lower Extremeties - VTE Diagnosis Confirmed Treatment or plan recommended: Continue Current Treatment
--- NOTE | 2020-04-02 11:50 | P.PN_ITS ---
[facility] Anesthesia Record Part II Discharge Time: 11:01 Destination: Medical Surgical Department PACU nurse assessment reviewed?: Yes Patient Condition:: Good Anesthesia Complications:: None Swallowing reflex intact?: Yes Cyanosis?: No Blood Pressure: 141/99 Pulse Rate: 80 Temperature: 97.6 F Mental Status: Alert & Oriented Pain level:: 0 Nausea and/or vomitting:: None Intake, IV Amount: 200
--- NOTE | 2020-04-02 12:37 | HMH.PHAINT ---
MEDICATION RECONCILIATION COMPLETED ON PATIENT USING EXTERNAL FILL HISTORY FROM PHARMACY. -HUA TREVINO, AYAKAD
--- NOTE | 2020-04-02 14:18 | SUR.PHASEI ---
1101: DETAILED REPORT GIVEN TO Ariel BAILEY RN. PATIENT TRANSPORTED TO MED/SURG PER MYSELF AND Christina ENRIQUEZ RN. PATIENT HOOKED UP TO DATASCOPE. Ariel BAILEY RN AT BEDSIDE UPON ARRIVAL TO THE ROOM. PATIENT ASKED THAT I CALL HER BOYFRIEND, ANGÉLICA, AND UPDATE HIM THAT SHE WAS OUT OF SURGERY. UPDATE GIVEN TO ANGÉLICA VIA TELEPHONE. CALL LIGHT GIVEN TO PATIENT, BED LOW AND LOCKED.
[2020-04-02 16:31] LABS: Microscopic,Cath URINE MICROSCOPIC (MICROSCOPIC)
[2020-04-02 16:37] LABS: Appearance,Urine/Cath SL CLOUDY (Clear); Bilirubin,Cath Negative (Negative); Blood, Urine/Cath Negative (Negative); Color,Urine/Cath YELLOW (Yellow); Glucose,Urine/Cath (UA) Negative (Negative); Ketones,Urine/Cath Negative (Negative); Leukocyte Esterase,Cath TRACE (Negative); Nitrate,Cath Negative (Negative); PH,Urine/Cath 7.5 (5.0-8.5); Protein,Urine/Cath Negative (Negative); Specific Gravity, Urine/Cath 1.015 (1.005-1.030); Urobilinogen,Cath 0.2 EU/dl (0.2)
[2020-04-02 16:47] LABS: Bacteria,Urine/Cath 2+ /lpf
--- NOTE | 2020-04-02 17:59 | PC.NURSE ---
Has c/o pain/tenderness in abdomen in which she has been medicated per JAN. Dr. Meeks paged earlier after returning from PACU d/t nausea w/ no relief from zofran. Phenergan 12.5 IV orders and given. No c/o nausea since that time. Pt has ambulated in room multiple times and has voided w/o difficulty since returning from surgery. Friend remains at bedside. Remains afebrile. Tolerating full liquid diet. Surgical dressings remain unchanged from initial assessment when arriving to floor from PACU. Scant amount of serosang drainage present to lower site. Will continue to monitor.
--- NOTE | 2020-04-02 19:15 | PC.NURSE ---
report given to samm
[2020-04-03 04:00] VITALS: BP 134/84; PULSE 76; RESP 20; TEMP 37.3; O2SAT 97
--- NOTE | 2020-04-03 04:46 | PC.NURSE ---
Pt is A&Ox4 and has ambulated independently t/o shift and tolerated well. Pt has c/o pain several times this shift and MD Meeks was contacted regarding pain med options and new order received, see Providers notification. Pt has denied any nausea or BM this shift. ABD is soft, tender to palpation near lap sites with hypoactive bowel sounds auscultated. Pt has refused TEDs or SCUDs this shift. Pt rested well several hours during the night. VSS, call light within reach, will continue to monitor.
--- NOTE | 2020-04-03 06:46 | HMH.GSPN ---
Subjective Narrative: Patient had been having nausea refractory to Zofran postoperatively and required some Phenergan. This has subsequently improved. She was having pain refractory to 5 mg of [place] but did not desire Dilaudid. This improved with 2 of the 5 mg [place]. Exam Vital signs and Labs for Last 24 Hours: Temp Pulse Resp BP Pulse Ox 99.1 F 76 20 134/84 97 04/03/20 04:00 04/03/20 04:00 04/03/20 04:00 04/03/20 04:00 04/03/20 04:00 Laboratory Results - last 24 hr 04/02/20 : Urine Color Yellow, Urine Appearance Sl cloudy, Urine pH 7.5, Ur Specific [place] 1.015, Urine Protein Negative, Urine Glucose (UA) Negative, Urine Ketones Negative, Urine Blood Negative, Urine Nitrate Negative, Urine Bilirubin Negative, Urine Urobilinogen 0.2, Ur Leukocyte Esterase Trace, Urine RBC 3-5, Urine WBC 10-20 A, Ur Squamous Epith Cells 10-20, Urine Bacteria 2+ A I & O for Last 24 hours: Intake & Output 03/31/20 04/01/20 04/02/20 04/03/20 11:59 11:59 11:59 11:59 Intake Total 1100 / 1100 1160 / 1160 Balance 1100 / 1100 1160 / 1160 Weight 144 lb 1.012 oz 159 lb 1 oz - *Routine Abdominal Exam Present: soft Progress Note: A&P Assessment and Plan for All Diagnoses:: Monitor temperature. Probable discharge later today.
[2020-04-03 07:35] VITALS: BP 131/85; PULSE 88; RESP 17; TEMP 36.8; O2SAT 98
[2020-04-03 11:20] VITALS: BP 135/80; PULSE 85; RESP 18; TEMP 36.8; O2SAT 98
--- NOTE | 2020-04-03 14:44 | HMH.DCSUM ---
General - General Admission date:: 04/02/20 Discharge date: 04/03/20 HPI HPI: Patient is a 30-year-old female from [place]. She states that she was in her usual state of health until yesterday afternoon approximately 7 PM. She experienced right upper quadrant pain radiating to the right lower quadrant and into her back. This persisted and she presented to the emergency department early this morning. She underwent evaluation which revealed leukocytosis. She had CT scan which revealed findings of 9 mm appendix with enhancing wall consistent with appendicitis. Hospital Course Hospital Course: Patient was admitted for inpatient management. Arrangements were made for appendectomy. She was taken to the operating room in the morning of 04/02/2020 at which time she underwent laparoscopic appendectomy. She is found to have an acutely inflamed appendix characterized by edema and erythema with very mild induration consistent with early acute nonperforated non-complicated appendicitis. Please see operative dictation for complete details. She was admitted for continued postoperative management. She was given levofloxacin and metronidazole preoperatively and this was continued postoperatively. She was given full liquid diet. She tolerated this overnight. She did have some nausea and required Zofran and Phenergan. Following morning she was doing well and her diet was advanced to a bland diet. In the afternoon of 04/03/2020 patient was anxious to go home and doing quite well. Objective Vital signs: Temp Pulse Resp BP Pulse Ox 98.2 F 85 18 135/80 98 04/03/20 11:20 04/03/20 11:20 04/03/20 11:20 04/03/20 11:20 04/03/20 11:20 Results Labs on day of discharge: Labs from last 24 hours 04/02/20 Unknown Urine Color Yellow Urine Appearance Sl cloudy Urine pH 7.5 Ur Specific [place] 1.015 Urine Protein Negative Urine Glucose (UA) Negative Urine Ketones Negative Urine Blood Negative Urine Nitrate Negative Urine Bilirubin Negative Urine Urobilinogen 0.2 Ur Leukocyte Esterase Trace Urine RBC 3-5 Urine WBC 10-20 A Ur Squamous Epith Cells 10-20 Urine Bacteria 2+ A Discharge Plan - Patient Discharge Instructions ACTIVITY: No heavy lifting DIET: advance to your usual diet Patient Instructions: DI for Appendicitis -- Adult, Appendicitis - Follow up Plan Disposition: Home, Self-Usp Medications: Home Medications Medication Instructions Recorded Confirmed Type vitamin with calcium 1 tab PO DAILY 01/09/20 04/02/20 History no.72-iron 27 mg-folic acid 1 mg tablet sertraline 100 mg tablet 100 mg PO DAILY 01/09/20 04/02/20 History phentermine 37.5 mg tablet 37.5 mg PO DAILY #30 tab 03/13/20 04/02/20 Rx Hydrocod/Acet 5/325 mg [[place] 1 - 2 tab PO Q6HP PRN #21 tab 04/03/20 Rx 5/325mg tablet] Prescriptions/Medication Reconciliation: New Hydrocod/Acet 5/325 mg [[place] 5/325mg tablet] 1 - 2 tab PO Q6HP PRN #21 tab PRN Reason: Moderate Pain Continued phentermine 37.5 mg tablet 37.5 mg PO DAILY #30 tab vitamin with calcium no.72-iron 27 mg-folic acid 1 mg tablet 1 tab PO DAILY sertraline 100 mg tablet 100 mg PO DAILY - Problem Reconciliation Problems Reviewed?: Yes
--- NOTE | 2020-04-03 14:54 | HMH.PHAINT ---
DISCHARGE COUNSELING COMPLETED ON PATIENT. ONLY NEW PRESCRIPTION IS FOR NORCO 5 1-2 TABLETS Q6H PRN FOR PAIN. PATIENT IS TO CONTINUE ALL OTHER HOME MEDICATIONS. PATIENT VERBALIZED UNDERSTANDING AND HAD NO QUESTIONS AT THIS TIME. -HUA TREVINO, AYAKAD
== END 2020-04-03 15:15 | disposition home or self-care (01) ==
LOC: ER 01:47 → 2ND 02:23
PROVIDERS: Admitting Provider Surgery; Emergency Provider Emergency Medicine; PCP Physician Assistant; Visit Provider Surgery
PROC: 0DTJ4ZZ Resection of Appendix, Percutaneous Endoscopic Approach (ICD-10-PCS; CPT 44970; principal; 2020-04-02 09:00)
DX: K35.80 Unspecified acute appendicitis (principal)
CPT/HCPCS: 44970; 36415; 74177; 80048; 80053; 80305; 81001; 81025; 82150; 83605; 83690; 85007; 85025; 87040; 87086; 88304; 96365; 96366; 96375; 99284; G0378; J1956; J2405; J2710; Q9967

== ENCOUNTER 2020-05-03 23:16 | Emergency (ER) | payer MEDICAID, SELFPAY ==
[2020-05-03 23:20] VITALS: BP 138/107; PULSE 93; RESP 18; TEMP 37.2; O2SAT 97; BMI 28.9
[2020-05-04 00:03] VITALS: BP 137/100; PULSE 97; RESP 16; TEMP 36.7; O2SAT 100
--- NOTE | 2020-05-04 00:09 | XR_ITS ---
PROCEDURE: XR ELBOW LT MIN 3V CLINICAL INDICATION: left elbow/arm pain COMPARISON: No exams were available for comparison FINDINGS: No fracture or dislocation. No lytic or blastic change. There is normal mineralization. The joint spaces are well-preserved. No significant degenerative/arthritic changes. No erosive changes evident. Other findings:None. IMPRESSION: No acute findings. Dictated by: José Antonio Del Valle 05/04/2020 08:37 Electronically signed by José Antonio Del Valle in [place] 05/04/2020 08:37
--- NOTE | 2020-05-04 00:12 | XR_ITS ---
PROCEDURE: XR HAND LT MIN 3V CLINICAL INDICATION: left arm/elbow pain COMPARISON: [id number] XR hand RT min 3V from 05/18/2018 FINDINGS: No fracture or dislocation. No lytic or blastic change. There is normal mineralization. The joint spaces are well-preserved. No significant degenerative/arthritic changes. No erosive changes evident. Other findings:None. IMPRESSION: No acute findings. Dictated by: José Antonio Del Valle 05/04/2020 08:36 Electronically signed by José Antonio Del Valle in [facility] 05/04/2020 08:36
--- NOTE | 2020-05-04 00:12 | XR_ITS ---
PROCEDURE: XR FOREARM LT 2V CLINICAL INDICATION: leftr arm/elbow pain COMPARISON: FARMRT XR forearm RT 2V from 05/18/2018 FINDINGS: No fracture or dislocation. No lytic or blastic change. There is normal mineralization. The joint spaces are well-preserved. No significant degenerative/arthritic changes. No erosive changes evident. Other findings:None. IMPRESSION: No acute findings. Dictated by: José Antonio Del Valle 05/04/2020 08:37 Electronically signed by José Antonio Del Valle in [facility] 05/04/2020 08:37
--- NOTE | 2020-05-04 00:12 | XR_ITS ---
PROCEDURE: XR SHOULDER LT MIN 2V CLINICAL INDICATION: left arm/elbow pain [id number] 03/01/2016 SHOU3R [id number] VIEWS from 12/25/2016 FINDINGS: No fracture or dislocation. No lytic or blastic change. There is normal mineralization. The joint spaces are well-preserved. No significant degenerative/arthritic changes. No erosive changes evident. Other findings:None. IMPRESSION: No acute findings. Dictated by: José Antonio Del Valle 05/04/2020 08:38 Electronically signed by José Antonio Del Valle in [facility] 05/04/2020 08:38
--- NOTE | 2020-05-04 00:12 | XR_ITS ---
PROCEDURE: XR WRIST LT MIN 3V CLINICAL INDICATION: fall COMPARISON: WRISTCMRT XR wrist RT min 3V from 05/18/2018 FINDINGS: No fracture or dislocation. No lytic or blastic change. There is normal mineralization. The joint spaces are well-preserved. No significant degenerative/arthritic changes. No erosive changes evident. Other findings:None. IMPRESSION: No acute findings. Dictated by: José Antonio Del Valle 05/04/2020 08:36 Electronically signed by José Antonio Del Valle in [facility] 05/04/2020 08:36
--- NOTE | 2020-05-04 00:12 | XR_ITS ---
PROCEDURE: XR HUMERUS LT CLINICAL INDICATION: fall COMPARISON: HUMR HUMERUS-RT from 03/01/2016 FINDINGS: No fracture or dislocation. No lytic or blastic change. There is normal mineralization. The joint spaces are well-preserved. No significant degenerative/arthritic changes. No erosive changes evident. Other findings:None. IMPRESSION: No acute findings. Dictated by: José Antonio Del Valle 05/04/2020 08:38 Electronically signed by José Antonio Del Valle in [facility] 05/04/2020 08:38
[2020-05-04 00:13] VITALS: BP 137/90; PULSE 97; RESP 18; TEMP 36.7; O2SAT 100
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
[2020-05-04 00:56] VITALS: BP 137/90; PULSE 97; RESP 18; TEMP 37.2
== END 2020-05-04 00:58 | disposition home or self-care (01) ==
PROVIDERS: Emergency Provider Emergency Medicine; PCP Physician Assistant
DX: S49.92XA Unspecified injury of left shoulder and upper arm, initial encounter (principal); W22.8XXA Striking against or struck by other objects, initial encounter; Y92.89 Other specified places as the place of occurrence of the external cause; F41.8 Other specified anxiety disorders; I10 Essential (primary) hypertension; F17.210 Nicotine dependence, cigarettes, uncomplicated
CPT/HCPCS: 73030; 73060; 73080; 73090; 73110; 73130; 99282

== ENCOUNTER 2020-08-19 20:11 | Emergency (ER) | payer MEDICAID, SELFPAY ==
[2020-08-19 20:19] VITALS: BMI 28.2
--- NOTE | 2020-08-19 20:21 | PC.NURSE ---
pt requesting something for my belly
[2020-08-19 20:26] VITALS: BP 121/79; PULSE 87; RESP 17; TEMP 36.7; O2SAT 100; BMI 28.2
[2020-08-19 20:32] LABS: Microscopic, Urine URINE MICROSCOPIC (MICROSCOPIC)
--- NOTE | 2020-08-19 20:37 | PC.NURSE ---
waiting on neg preg test confirmed prior to admin of toradol
[2020-08-19 20:41] LABS: Basophils # 0.1 K/mm3 (0-0.2); Basophils % 0.9 % (0.1-2.0); Eosinophils # 0.6 K/mm3 (0.0-0.4); Eosinophils % 5.3 % (0.1-12.0); Lymphocytes % 35.8 % (10-50); Mean Corpuscular HGB Conc 33.4 g/dL (31.8-35.4); Mean Corpuscular Hemoglobin 28.2 pg (27.0-31.2); Mean Corpuscular Volume 84.6 fl (81-99); Mean Platelet Volume 7.7 fl (7.4-10.4); Monocytes # 0.6 K/mm3 (0.1-1.0); Monocytes % 5.6 % (1.7-9.3); Neutrophils # 5.8 K/mm3 (1.8-7.8); Neutrophils % 52.3 % (37.0-80.0); Platelet Count 343 K/mm3 (142-424); Red Blood Count 5.32 M/mm3 (4.20-5.40); Red Cell Distribution Width 13.1 % (11.5-17.5); White Blood Count 11.2 K/mm3 (4.8-10.8)
[2020-08-19 20:51] LABS: Alanine Aminotransferase 17 U/L (12-78); Albumin Level 4.5 g/dl (3.5-5.0); Alkaline Phosphatase 109 U/L (38-126); Amylase 124 U/L (30-110); Anion Gap 12.8 mEq/L (5-15); Aspartate Amino Transferase 26 U/L (14-36); Bilirubin,Direct 0.1 mg/dl (0.0-0.4); Bilirubin,Indirect 0.2 mg/dL (0.0-0.9); Bilirubin,Total 0.3 mg/dl (0.2-1.3); Bilirubin,Unconjugated 0.2 mg/dL (0.0-1.1); Blood Urea Nitrogen 13 mg/dl (7-17); Calcium 9.4 mg/dl (8.4-10.2); Carbon Dioxide 27 mmol/L (22.0-30.0); Chloride 104 mmol/L (98-107); Creatinine Clearance Estimated 131 mL/min (50-200); Estimated Glomerular Filt Rate 85 ml/min (>60); GFR (African American) 103 ML/MIN (>60); Glucose 92 mg/dl (74-100); Lipase 389 U/L (23-300); Potassium 3.8 mmoL/L (3.5-5.1); Sodium 140 mmol/L (136-145)
[2020-08-19 20:51] LABS: Appearance,Urine SL CLOUDY (Clear); Bilirubin,Urine Negative (Negative); Blood, Urine Negative (Negative); Color,Urine YELLOW (Yellow); Glucose,Urine (UA) Negative (Negative); Ketones,Urine Negative (Negative); Leukocyte Esterase,Urine Negative (Negative); Nitrate,Urine Negative (Negative); Protein,Urine Negative (Negative); Urine Pregnancy, HCG Qual. Negative (Negative); Urobilinogen,Urine 0.2 EU/dl (0.2)
[2020-08-19 20:52] LABS: Squamous Epithelial Cell,Urine 20-50 #/hpf (0-5)
--- NOTE | 2020-08-19 20:53 | CT_ITS ---
PROCEDURE: CT ABDOMEN PELVIS W CON CLINICAL INDICATION: abdominal Epigastric pain COMPARISON: CT CT ABDOMEN PELVIS W CON from 04/02/2020 TECHNIQUE: IV Contrast: 75ML OPTIRAY 350 Oral Contrast None Axial images obtained with sagittal and coronal reformats. All CT scans at the facility use one or more dose reduction, viz: automated exposure control, ma/kV adjustment per patient size (including targeted exams where dose is matched to indication, i.e. head), or iterative reconstruction technique. FINDINGS: LOWER THORAX: No acute finding ABDOMEN & PELVIS: The liver, spleen, adrenal glands, pancreas, have an unremarkable appearance. There are few scattered small retroperitoneal lymph nodes nonspecific. There is mild prominence of the right renal pelvis and ureter. No definite ureteral calculus is evident. The No intestinal obstruction or free air. Prior appendectomy. The uterus is somewhat prominent with a slightly lobular contour. Both ovaries are also mildly prominent which is nonspecific. 2 cm left ovarian cyst. Pelvic ultrasound may provide further evaluation. No acute bony findings. There is a mild amount of retained colonic feces in the rectosigmoid region. IMPRESSION: 1. Mildly prominent right renal collecting system and ureter without definite stone. A recently passed stone is a consideration. Urinary tract infection could also cause this finding. Please correlate clinically. 2. Mildly prominent uterus with mildly lobular contour and heterogeneous density also with prominence of the ovaries with a 2 cm left ovarian cyst. Pelvic ultrasound may provide further evaluation. Dictated by: El Chanel MD 08/20/2020 06:09 El Chanel MD in [place] 08/20/2020 06:09
--- NOTE | 2020-08-19 20:56 | PC.NURSE ---
rad notified of order for ct. spoke with dale. pt taken via wc to ct scan.
--- NOTE | 2020-08-19 21:02 | HMH.EDNVD ---
ED Disposition Clinical Impression: Abdominal pain Qualifiers: Abdominal location: epigastric Qualified Code(s): R10.13 - Epigastric pain Disposition: Home, Self-Care Condition on Discharge: Good Instructions: DI for Acute Abdomen Additional Instructions: please call pcp in am for more testing Referrals: Leticia Dillon PA [Primary Care Provider] - - Critical Care Critical Care Time: No Attestation: On 08/19/20, the high probability of a clinically significant, sudden or life threatening deterioration of the following system(s) required my full and direct attention, intervention and personal management. The time I documented below is in addition to time spent performing reported procedures but includes the following listed in this critical care notation. Medical Decision Making - Medical Records Medical records reviewed: Yes: I reviewed the patient's medical records. - [place] Inquiry Pt receiving controlled substance: No Vital Signs: 08/19/20 20:26 Temperature 98.0 F Temperature Source Oral Pulse Rate [Right Brachial] 87 Respiratory Rate 17 Blood Pressure [Right Arm] 121/79 Blood Pressure Mean [Right Arm] 93 Blood Pressure Source [Right Arm] Automatic Cuff Blood Pressure Position [Right Arm] Sitting 02 Sat by Pulse Oximetry 100 Oxygen Delivery Method Room Air - Lab Data Lab results reviewed: Yes: I reviewed the patient's lab results. Lab Results 08/19/20 20:28: Urine Color Yellow, Urine Appearance Sl cloudy, Urine pH 7.0, Ur Specific [place] 1.020, Urine Protein Negative, Urine Glucose (UA) Negative, Urine Ketones Negative, Urine Blood Negative, Urine Nitrate Negative, Urine Bilirubin Negative, Urine Urobilinogen 0.2, Ur Leukocyte Esterase Negative, Ur Squamous Epith Cells 20-50 08/19/20 20:28: Urine HCG, Qual Negative 08/19/20 20:31: WBC 11.2 H, RBC 5.32, Hgb 15.0, Hct 45.0, MCV 84.6, MCH 28.2, MCHC 33.4, RDW 13.1, Plt Count 343, MPV 7.7, Neut % (Auto) 52.3, Lymph % (Auto) 35.8, [place] % (Auto) 5.6, Eos % (Auto) 5.3, Baso % (Auto) 0.9, Neut # (Auto) 5.8, Lymph # (Auto) 4.0, [place] # (Auto) 0.6, Eos # (Auto) 0.6 H, Baso # (Auto) 0.1 08/19/20 20:31: Sodium 140, Potassium 3.8, Chloride 104, Carbon Dioxide 27, Anion Gap 12.8, BUN 13, Creatinine 0.80, Estimated Creat Clear 131, Estimated GFR 85, Est GFR ( Amer) 103, Glucose 92, Calcium 9.4, Total Bilirubin 0.3, Direct Bilirubin 0.1, Conjugated Bilirubin 0.0, Indirect Bilirubin 0.2, Unconjugated Bilirubin 0.2, AST 26, ALT 17, Alkaline Phosphatase 109, Total Protein 8.0, Albumin 4.5, Amylase 124 H, Lipase 389 H Result diagrams: 08/19/20 20:31 08/19/20 20:31 Orders (Tests/Meds): ED MEDICATIONS Generic Name Dose Route Start Last Admin Trade Name Freq PRN Reason Stop Dose Admin Sodium Chloride 1,000 mls @ 999 mls/hr 08/19/20 20:30 08/19/20 20:35 Sod Chlor 0.9% 1000ml Bag IV 08/19/20 21:30 999 mls/hr .Q1H1M WOLFGANG Administration Sodium Chloride 8 ml 08/19/20 20:25 08/19/20 20:35 Sodium Chloride 0.9% 10ml Vial IV 09/18/20 20:24 8 ml NEEDED PRN Administration dilute pepcid Discontinued Medications Generic Name Dose Route Start Last Admin Trade Name Freq PRN Reason Stop Dose Admin Famotidine 20 mg 08/19/20 20:25 08/19/20 20:35 Famotidine 20mg/2ml Vial IV 08/19/20 20:26 20 mg ONCE ONE Administration Ioversol 75 ml 08/19/20 21:19 08/19/20 21:20 Ioversol-350 (74%) 100ml Vial IV 08/19/20 21:20 75 ml ONCE ONE Administration Protocol Ketorolac Tromethamine 30 mg 08/19/20 20:25 08/19/20 21:30 Ketorolac 30mg/Ml Vial IV 08/19/20 20:26 30 mg ONCE ONE Administration Metoclopramide HCl 10 mg 08/19/20 20:25 08/19/20 20:35 Metoclopramide Hcl 10mg/2ml Vial IVP 08/19/20 20:26 10 mg ONCE ONE Administration Sodium Chloride 10 ml 08/19/20 21:19 08/19/20 21:20 Sodium Chloride 0.9% 10ml Syr (Rad Only) IV 08/19/20 21:20 10 ml ONCE ONE Administration ORDERS Categor
[2020-08-19 22:43] VITALS: BP 121/74; PULSE 88; RESP 15; TEMP 36.7; O2SAT 98
== END 2020-08-19 22:47 | disposition home or self-care (01) ==
PROVIDERS: Emergency Provider Emergency Medicine; PCP Physician Assistant
DX: R10.13 Epigastric pain (principal); R42 Dizziness and giddiness; F17.210 Nicotine dependence, cigarettes, uncomplicated; I10 Essential (primary) hypertension; F41.8 Other specified anxiety disorders
CPT/HCPCS: 74177; 80048; 80076; 81001; 81025; 82150; 83690; 85025; 96365; 96375; 99282; Q9967

== ENCOUNTER → 2020-08-23 08:56 | Outpatient (CLI) | payer MEDICAID, SELFPAY ==
--- NOTE | 2020-08-23 08:57 | US_ITS ---
PROCEDURE: US ABDOMEN COMPLETE CLINICAL INDICATION: abd pain, elevated amylase and lipase COMPARISON: No exams were available for comparison FINDINGS: PANCREAS: Unremarkable. No obvious mass or abnormal fluid collection. No ductal dilatation LIVER: No focal liver lesions demonstrated. Homogeneous echogenicity. No intrahepatic biliary ductal dilatation evident. There is appropriate direction of blood flow within a non dilated portal vein RIGHT KIDNEY: Unremarkable. Normal size and echogenicity. No hydronephrosis LEFT KIDNEY: Unremarkable. Normal size and echogenicity. No hydronephrosis GALLBLADDER: No gallstones, gallbladder wall thickening, pericholecystic fluid, or biliary dilatation. AORTA: No evidence of aneurysmal dilatation. SPLEEN: Unremarkable. Normal size and echogenicity ASCITES: None demonstrated. IMPRESSION: Unremarkable abdominal ultrasound Dictated by: El Chanel MD 08/24/2020 11:23 El Chanel MD in [place] 08/24/2020 11:23
== END ==
PROVIDERS: PCP Physician Assistant; Visit Provider Nurse Practitioner Family
DX: R10.9 Unspecified abdominal pain (principal)
CPT/HCPCS: 76700

== ENCOUNTER 2020-08-30 18:02 | Emergency (ER) | payer MEDICAID, SELFPAY ==
[2020-08-30 18:03] VITALS: BP 130/100; PULSE 99; RESP 17; TEMP 36.6; O2SAT 99; BMI 35.9
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
[2020-08-30 18:51] VITALS: BP 132/90; PULSE 87; RESP 17; TEMP 36.7; O2SAT 99
== END 2020-08-30 18:52 | disposition home or self-care (01) ==
PROVIDERS: Emergency Provider Emergency Medicine; PCP Physician Assistant
DX: L03.113 Cellulitis of right upper limb (principal); F41.8 Other specified anxiety disorders; I10 Essential (primary) hypertension; F17.210 Nicotine dependence, cigarettes, uncomplicated; Z79.899 Other long term (current) drug therapy
CPT/HCPCS: 90471; 90715; 99281

== ENCOUNTER 2020-11-28 18:46 | Emergency (ER) | payer MEDICAID, SELFPAY ==
[2020-11-28 19:07] VITALS: BP 168/115; PULSE 92; RESP 17; TEMP 36.7; O2SAT 96; BMI 32.5
--- NOTE | 2020-11-28 19:15 | CT_ITS ---
PROCEDURE: CT ABDOMEN PELVIS W CON CLINICAL INDICATION: abd pain Right upper quadrant abdominal pain with nausea and vomiting COMPARISON: CT CT ABDOMEN PELVIS W CON from 08/19/2020 TECHNIQUE: IV Contrast: 75ML Isovue 370 Oral Contrast None Axial images obtained with sagittal and coronal reformats. All CT scans at the facility use one or more dose reduction, viz: automated exposure control, ma/kV adjustment per patient size (including targeted exams where dose is matched to indication, i.e. head), or iterative reconstruction technique. FINDINGS: LOWER THORAX: No acute finding ABDOMEN & PELVIS: The liver, spleen, adrenal glands, pancreas, and gallbladder have an unremarkable appearance. There is mild ectasia of the renal collecting system on both sides. Prior appendectomy. No intestinal obstruction or free air. No pelvic mass or abnormal fluid collection. There are few scattered small peritoneal lymph nodes which are nonspecific. No acute bony findings. IMPRESSION: No acute finding Dictated by: El Chanel MD 11/29/2020 06:32 El Chanel MD in [place] 11/29/2020 06:32
[2020-11-28 19:30] VITALS: BP 136/101; PULSE 89; RESP 17; O2SAT 98
[2020-11-28 19:49] LABS: Microscopic, Urine URINE MICROSCOPIC (MICROSCOPIC)
[2020-11-28 19:51] LABS: Basophils # 0.1 K/mm3 (0-0.2); Eosinophils # 0.7 K/mm3 (0.0-0.4); Eosinophils % 6.5 % (0.1-12.0); Hematocrit 46.5 % (37.0-47.0); Hemoglobin 15.5 g/dL (12.2-16.2); Lymphocytes # 2.9 K/mm3 (0.7-4.5); Lymphocytes % 27.9 % (10-50); Mean Corpuscular HGB Conc 33.2 g/dL (31.8-35.4); Mean Corpuscular Hemoglobin 27.4 pg (27.0-31.2); Mean Corpuscular Volume 82.6 fl (81-99); Mean Platelet Volume 7.5 fl (7.4-10.4); Monocytes # 0.5 K/mm3 (0.1-1.0); Monocytes % 4.5 % (1.7-9.3); Neutrophils # 6.2 K/mm3 (1.8-7.8); Neutrophils % 60.1 % (37.0-80.0); Platelet Count 317 K/mm3 (142-424); Red Blood Count 5.64 M/mm3 (4.20-5.40); Red Cell Distribution Width 14.2 % (11.5-17.5); White Blood Count 10.3 K/mm3 (4.8-10.8)
[2020-11-28 20:00] VITALS: BP 133/109; PULSE 92; RESP 17; O2SAT 99
[2020-11-28 20:00] LABS: Appearance,Urine CLEAR (Clear); Bilirubin,Urine Negative (Negative); Blood, Urine 1+ (Negative); Glucose,Urine (UA) Negative (Negative); Ketones,Urine Negative (Negative); Leukocyte Esterase,Urine Negative (Negative); Nitrate,Urine Negative (Negative); Protein,Urine Negative (Negative); Urobilinogen,Urine 0.2 EU/dl (0.2)
[2020-11-28 20:01] LABS: Color,Urine Dark Yellow (Yellow)
[2020-11-28 20:04] LABS: Alanine Aminotransferase 31 U/L (12-78); Albumin Level 4.5 g/dl (3.5-5.0); Alkaline Phosphatase 92 U/L (38-126); Amylase 166 U/L (30-110); Anion Gap 10.6 mEq/L (5-15); Aspartate Amino Transferase 29 U/L (14-36); Bilirubin,Direct 0.3 mg/dl (0.0-0.4); Bilirubin,Indirect 0.1 mg/dL (0.0-0.9); Bilirubin,Total 0.4 mg/dl (0.2-1.3); Blood Urea Nitrogen 7 mg/dl (7-17); Calcium 9.1 mg/dl (8.4-10.2); Carbon Dioxide 27 mmol/L (22.0-30.0); Chloride 104 mmol/L (98-107); Creatinine Clearance Estimated 172 mL/min (50-200); Estimated Glomerular Filt Rate 119 ml/min (>60); GFR (African American) 144 ML/MIN (>60); Glucose 116 mg/dl (74-100); Potassium 3.6 mmoL/L (3.5-5.1); Sodium 138 mmol/L (136-145); Total Protein,Serum 8.1 g/dl (6.3-8.2)
[2020-11-28 20:04] LABS: Urine Pregnancy, HCG Qual. Negative (Negative)
[2020-11-28 20:11] LABS: Lipase 670 U/L (23-300)
[2020-11-28 20:12] LABS: Bacteria,Urine 1+ /lpf
--- NOTE | 2020-11-28 20:14 | HMH.EDNVD ---
ED Disposition Clinical Impression: Elevated amylase and lipase Abdominal pain Qualifiers: Abdominal location: right upper quadrant Qualified Code(s): R10.11 - Right upper quadrant pain Disposition: Home, Self-Care Condition on Discharge: Good Instructions: DI for Acute Abdominal Pain Additional Instructions: see pcp for follow up in am Referrals: Leticia Dillon PA [Primary Care Provider] - - Critical Care Critical Care Time: No Attestation: On 11/28/20, the high probability of a clinically significant, sudden or life threatening deterioration of the following system(s) required my full and direct attention, intervention and personal management. The time I documented below is in addition to time spent performing reported procedures but includes the following listed in this critical care notation. Medical Decision Making - Medical Records Medical records reviewed: Yes: I reviewed the patient's medical records. - [place] Inquiry Pt receiving controlled substance: No Vital Signs: 11/28/20 19:07 11/28/20 19:30 11/28/20 20:00 Temperature 98.1 F Temperature Source Oral Pulse Rate [Right Brachial] 92 H 89 92 H Respiratory Rate 17 17 17 Blood Pressure [Right Arm] 168/115 H 136/101 H 133/109 H Blood Pressure Mean [Right Arm] 132 112 117 Blood Pressure Source [Right Arm] Automatic Cuff Automatic Cuff Automatic Cuff Blood Pressure Position [Right Arm] Sitting Supine Supine 02 Sat by Pulse Oximetry 96 98 99 Oxygen Delivery Method Room Air Room Air Room Air 11/28/20 20:30 Temperature Temperature Source Pulse Rate [Right Brachial] 84 Respiratory Rate 17 Blood Pressure [Right Arm] 156/99 H Blood Pressure Mean [Right Arm] 118 Blood Pressure Source [Right Arm] Automatic Cuff Blood Pressure Position [Right Arm] Supine 02 Sat by Pulse Oximetry 96 Oxygen Delivery Method Room Air - Lab Data Lab results reviewed: Yes: I reviewed the patient's lab results. Lab Results 11/28/20 18:50: Urine Color Dark yellow, Urine Appearance Clear, Urine pH 6.0, Ur Specific [place] 1.010, Urine Protein Negative, Urine Glucose (UA) Negative, Urine Ketones Negative, Urine Blood 1+, Urine Nitrate Negative, Urine Bilirubin Negative, Urine Urobilinogen 0.2, Ur Leukocyte Esterase Negative, Urine WBC 3-5, Ur Squamous Epith Cells 5-10, Urine Bacteria 1+ 11/28/20 18:50: Urine HCG, Qual Negative 11/28/20 19:25: WBC 10.3, RBC 5.64 H, Hgb 15.5, Hct 46.5, MCV 82.6, MCH 27.4, MCHC 33.2, RDW 14.2, Plt Count 317, MPV 7.5, Neut % (Auto) 60.1, Lymph % (Auto) 27.9, [place] % (Auto) 4.5, Eos % (Auto) 6.5, Baso % (Auto) 1.0, Neut # (Auto) 6.2, Lymph # (Auto) 2.9, [place] # (Auto) 0.5, Eos # (Auto) 0.7 H, Baso # (Auto) 0.1 11/28/20 19:25: Sodium 138, Potassium 3.6, Chloride 104, Carbon Dioxide 27, Anion Gap 10.6, BUN 7, Creatinine 0.60, Estimated Creat Clear 172, Estimated GFR 119, Est GFR ( Amer) 144, Glucose 116 H, Calcium 9.1, Total Bilirubin 0.4, Direct Bilirubin 0.3, Conjugated Bilirubin 0.0, Indirect Bilirubin 0.1, Unconjugated Bilirubin 0.0, AST 29, ALT 31, Alkaline Phosphatase 92, Total Protein 8.1, Albumin 4.5, Amylase 166 H, Lipase 670 H Result diagrams: 11/28/20 19:25 11/28/20 19:25 Orders (Tests/Meds): ED MEDICATIONS Generic Name Dose Route Start Last Admin Trade Name Freq PRN Reason Stop Dose Admin Sodium Chloride 1,000 mls @ 999 mls/hr 11/28/20 19:30 11/28/20 19:28 Sod Chlor 0.9% 1000ml Bag IV 11/28/20 20:30 999 mls/hr .Q1H1M WOLFGANG Administration Sodium Chloride 8 ml 11/28/20 19:20 Sodium Chloride 0.9% 10ml Vial IV 12/28/20 19:19 NEEDED PRN dilute pepcid Discontinued Medications Generic Name Dose Route Start Last Admin Trade Name Freq PRN Reason Stop Dose Admin Famotidine 20 mg 11/28/20 19:20 11/28/20 19:29 Famotidine 20mg/2ml Vial IV 11/28/20 19:21 20 mg ONCE ONE Administration Iopamidol 75 ml 11/28/20 21:14 11/28/20 21:15 Iopamidol-370 (76%);100ml Bottle IV
--- NOTE | 2020-11-28 20:21 | US_ITS ---
PROCEDURE: US GALLBLADDER CLINICAL INDICATION: abd pain Upper quadrant abdominal pain COMPARISON: No exams were available for comparison FINDINGS: Pancreas: Unremarkable/Not well seen Liver: Unremarkable. There is appropriate direction of blood flow within a non dilated portal vein. Right kidney: Unremarkable appearing. No hydronephrosis. Gallbladder: No stones are evident. There is no gallbladder wall thickening. Common duct is normal in diameter. IMPRESSION: Negative gallbladder ultrasound. No stones evident. Dictated by: El Chanel MD 11/29/2020 06:41 El Chanel MD in [place] 11/29/2020 06:41
[2020-11-28 20:30] VITALS: BP 156/99; PULSE 84; RESP 17; O2SAT 96
--- NOTE | 2020-11-28 21:12 | PC.NURSE ---
pt back from RAD
[2020-11-28 21:58] VITALS: BP 123/74; PULSE 81; RESP 15; TEMP 36.8; O2SAT 98
== END 2020-11-28 22:01 | disposition home or self-care (01) ==
PROVIDERS: Emergency Provider Emergency Medicine; PCP Physician Assistant
DX: R10.11 Right upper quadrant pain (principal); R74.8 Abnormal levels of other serum enzymes; I10 Essential (primary) hypertension; F41.8 Other specified anxiety disorders; Z79.899 Other long term (current) drug therapy
CPT/HCPCS: 74177; 76705; 80048; 80076; 81001; 81025; 82150; 83690; 85025; 96365; 96375; 99283; J2405; Q9967

== ENCOUNTER → 2020-12-06 10:32 | Outpatient (CLI) | payer MEDICAID, SELFPAY ==
--- NOTE | 2020-12-06 10:33 | NM_ITS ---
PROCEDURE: NM HEPATOBILIARY W PHARM CLINICAL INDICATION: epigastric pain Nausea and vomiting, right upper quadrant pain COMPARISON: US US GALLBLADDER from 11/28/2020 TECHNIQUE: Dose 8.11 mCi technetium Choletec and 1.6 mcg of CCK FINDINGS: Homogeneous activity is present within the hepatic parenchyma. Activity is present in the gallbladder by 5 minutes. Activity is present in the small bowel by 5 minutes. The gallbladder ejection fraction is calculated to be 23 percent. There was mild pain reported during the CCK infusion. IMPRESSION: 1. No evidence of common or cystic duct obstruction. 2. The low gallbladder ejection fraction of 23 percent, normal is greater than 35 percent. Some mild pain reported with CCK infusion. These findings may be seen with gallbladder dyskinesia. Please correlate with clinical parameters Dictated by: El Chanel MD 12/06/2020 18:26 El Chanel MD in [place] 12/06/2020 18:26
== END ==
PROVIDERS: PCP Physician Assistant; Visit Provider Physician Assistant
DX: R10.13 Epigastric pain (principal)
CPT/HCPCS: 78227; A9537; J2805

== ENCOUNTER 2020-12-11 17:13 | Emergency (ER) | payer MEDICAID, SELFPAY ==
[2020-12-11 17:14] VITALS: BP 169/118; PULSE 97; RESP 18; TEMP 37.4; O2SAT 100; BMI 32.8
--- NOTE | 2020-12-11 18:18 | HMH.EDABDPAI ---
ED Disposition Clinical Impression: Biliary colic Disposition: Home, Self-Care Condition on Discharge: Good Instructions: DI for Biliary Colic Referrals: Noel Mcdaniel MD [Staff Physician] - 12/12/20 - Critical Care Critical Care Time: No Attestation: On 12/11/20, the high probability of a clinically significant, sudden or life threatening deterioration of the following system(s) required my full and direct attention, intervention and personal management. The time I documented below is in addition to time spent performing reported procedures but includes the following listed in this critical care notation. Medical Decision Making - Medical Records Medical records reviewed: Yes: I reviewed the patient's medical records. - [place] Inquiry Pt receiving controlled substance: No Vital Signs: 12/11/20 17:14 Temperature 99.4 F Temperature Source Oral Pulse Rate [Left Radial] 97 H Respiratory Rate 18 Blood Pressure [Right Arm] 169/118 H Blood Pressure Mean [Right Arm] 135 Blood Pressure Source [Right Arm] Automatic Cuff Blood Pressure Position [Right Arm] Sitting 02 Sat by Pulse Oximetry 100 Oxygen Delivery Method Room Air - Lab Data Lab results reviewed: Yes: I reviewed the patient's lab results. Lab Results 12/11/20 18:20: WBC 11.8 H, RBC 5.34, Hgb 14.9, Hct 44.3, MCV 82.9, MCH 28.0, MCHC 33.7, RDW 14.7, Plt Count 366, MPV 7.7, Neut % (Auto) 64.7, Lymph % (Auto) 25.1, [place] % (Auto) 4.7, Eos % (Auto) 4.9, Baso % (Auto) 0.6, Neut # (Auto) 7.6, Lymph # (Auto) 3.0, [place] # (Auto) 0.6, Eos # (Auto) 0.6 H, Baso # (Auto) 0.1 12/11/20 18:20: Sodium 139, Potassium 3.7, Chloride 105, Carbon Dioxide 28, Anion Gap 9.7, BUN 12, Creatinine 0.80, Estimated Creat Clear 130, Estimated GFR 85, Est GFR ( Amer) 103, Glucose 108 H, Calcium 9.5, Total Bilirubin 0.4, AST 29, ALT 25, Alkaline Phosphatase 98, Total Protein 8.1, Albumin 4.5, Globulin 3.6 H, Albumin/Globulin Ratio 1.3, Lipase 61 Result diagrams: 12/11/20 18:20 12/11/20 18:20 Orders (Tests/Meds): ED MEDICATIONS Discontinued Medications Generic Name Dose Route Start Last Admin Trade Name Vahe PRN Reason Stop Dose Admin Ibuprofen 800 mg 12/11/20 17:28 12/11/20 17:31 Ibuprofen 400 Mg Tablet PO 12/11/20 17:29 800 mg ONCE ONE Administration ORDERS Category Date Time Status UA [Urinalysis and Microscopic] Stat Lab 12/11/20 18:20 Received Medical Decision Narrative: Patient here with right upper quadrant pain that has been present since August. She later reports that the pain eased up slightly, but then began again a few weeks ago which is what prompted her gallbladder ultrasound on 11/28/2020. Her pain has been persistent since then. No fevers. No exacerbating or alleviating factors. Ultrasound on the showed no stones and no signs of acute cholecystitis. She is afebrile here. She does have a slight leukocytosis, but has had this in the past as well. Given recent ultrasound and biliary scan, low suspicion for acute cholecystitis. She has follow-up with general surgery in the morning which would be adequate follow-up for her gallbladder pain. She is comfortable and texting on her phone when I enter the room. No vital sign abnormalities that would indicate septic process. I discussed this case with Dr. Meeks who thought follow-up with surgery in the morning would be appropriate as well. Discharged home. Abdominal Pain HPI - General Chief Complaint: Abdominal Pain Stated Complaint: gallbladder pain Time Seen by Provider: 12/11/20 18:18 Mode of Arrival: Wheelchair Limitations: No Limitations Description of Symptoms (Recalled from ER Triage Doc. by RN): c/o upper abdomen pain, n/v since August. Was told only 23 % of gallbladder was working. Is suppose to see surgeon tomorrow but was told by their office that surgery was booked for another month and she is in to much pain to wait that long - History of Present Illness
[2020-12-11 18:30] VITALS: BP 180/111; PULSE 85; RESP 18; O2SAT 98
[2020-12-11 18:40] LABS: Basophils # 0.1 K/mm3 (0-0.2); Basophils % 0.6 % (0.1-2.0); Eosinophils # 0.6 K/mm3 (0.0-0.4); Eosinophils % 4.9 % (0.1-12.0); Hematocrit 44.3 % (37.0-47.0); Hemoglobin 14.9 g/dL (12.2-16.2); Lymphocytes % 25.1 % (10-50); Mean Corpuscular HGB Conc 33.7 g/dL (31.8-35.4); Mean Corpuscular Volume 82.9 fl (81-99); Mean Platelet Volume 7.7 fl (7.4-10.4); Monocytes # 0.6 K/mm3 (0.1-1.0); Monocytes % 4.7 % (1.7-9.3); Neutrophils # 7.6 K/mm3 (1.8-7.8); Neutrophils % 64.7 % (37.0-80.0); Platelet Count 366 K/mm3 (142-424); Red Blood Count 5.34 M/mm3 (4.20-5.40); Red Cell Distribution Width 14.7 % (11.5-17.5); White Blood Count 11.8 K/mm3 (4.8-10.8)
[2020-12-11 18:41] LABS: Chloride 105 mmol/L (98-107); Potassium 3.7 mmoL/L (3.5-5.1); Sodium 139 mmol/L (136-145)
[2020-12-11 18:43] LABS: Alanine Aminotransferase 25 U/L (12-78); Alkaline Phosphatase 98 U/L (38-126); Anion Gap 9.7 mEq/L (5-15); Aspartate Amino Transferase 29 U/L (14-36); Bilirubin,Total 0.4 mg/dl (0.2-1.3); Blood Urea Nitrogen 12 mg/dl (7-17); Carbon Dioxide 28 mmol/L (22.0-30.0); Creatinine Clearance Estimated 130 mL/min (50-200); Estimated Glomerular Filt Rate 85 ml/min (>60); GFR (African American) 103 ML/MIN (>60); Lipase 61 U/L (23-300)
[2020-12-11 18:44] LABS: Albumin Level 4.5 g/dl (3.5-5.0); Albumin/Globulin Ratio 1.3 (1.1-1.8); Calcium 9.5 mg/dl (8.4-10.2); Globulin 3.6 g/dL (1.3-3.2); Glucose 108 mg/dl (74-100); Total Protein,Serum 8.1 g/dl (6.3-8.2)
--- NOTE | 2020-12-11 18:46 | PC.NURSE ---
Spoke with about pt and further evaluation. states if no acute cholecysitis is noted than pt can fu with MD tomorrow as scheduled.
[2020-12-11 18:51] LABS: Microscopic, Urine URINE MICROSCOPIC (MICROSCOPIC)
[2020-12-11 19:08] LABS: Appearance,Urine SL CLOUDY (Clear); Bilirubin,Urine Negative (Negative); Blood, Urine Negative (Negative); Color,Urine YELLOW (Yellow); Glucose,Urine (UA) Negative (Negative); Ketones,Urine Negative (Negative); Leukocyte Esterase,Urine Negative (Negative); Nitrate,Urine Negative (Negative); Protein,Urine Negative (Negative); Urobilinogen,Urine 0.2 EU/dl (0.2)
[2020-12-11 19:19] LABS: Bacteria,Urine 2+ /lpf
[2020-12-11 19:39] VITALS: BP 140/89; PULSE 82; RESP 18; TEMP 37.3; O2SAT 99
== END 2020-12-11 19:40 | disposition home or self-care (01) ==
PROVIDERS: Emergency Provider Emergency Medicine; PCP Physician Assistant
DX: R10.11 Right upper quadrant pain (principal); K80.50 Calculus of bile duct without cholangitis or cholecystitis without obstruction; I10 Essential (primary) hypertension; J45.909 Unspecified asthma, uncomplicated; F41.9 Anxiety disorder, unspecified; F32.9 Major depressive disorder, single episode, unspecified; Z88.1 Allergy status to other antibiotic agents; Z88.8 Allergy status to other drugs, medicaments and biological substances; Z72.0 Tobacco use; F12.90 Cannabis use, unspecified, uncomplicated; Z83.3 Family history of diabetes mellitus; Z81.8 Family history of other mental and behavioral disorders
CPT/HCPCS: 80053; 81001; 83690; 85025; 87086; 99283

== ENCOUNTER → 2021-01-09 16:45 | Outpatient (CLI) | payer MEDICAID, SELFPAY ==
[2021-01-09 17:58] LABS: Urine Pregnancy, HCG Qual. Negative (Negative)
[2021-01-09 18:20] LABS: Coronavirus 19 IgG Antibody Negative (Negative); Coronavirus 19 IgM Antibody Negative (Negative)
== END ==
PROVIDERS: Visit Provider Surgery
DX: Z01.818 Encounter for other preprocedural examination (principal); Z20.822 Contact with and (suspected) exposure to COVID-19; K82.8 Other specified diseases of gallbladder
CPT/HCPCS: 36415; 81025; 86328

== ENCOUNTER 2021-01-11 07:46 | Day surgery (SDC) | payer MEDICAID, SELFPAY ==
[2021-01-11] VITALS (18 sets, daily range): BP systolic 105–156; BP diastolic 57–102; PULSE 80–101; RESP 12–18; TEMP 36.1–43; O2SAT 90–97; BMI 32.8
--- NOTE | 2021-01-11 09:17 | HMH.ANESCL ---
[facility] Anesthesia Checklist - Patient Identification Patient Identification: Arm Band - Structural Data Admitted From: Home Planned Operative Procedure/s: laparoscopic cholecystectomy Consent for Planned Operative Procedure(s) Verified: Yes Verified Documents: Surgical Consent, History and Physical - NPO Status Verified Time NPO: 00:00 - Additional verifications Anesthesia Reactions: No Hx Blood Transfusions: No Blood Transfusion Reaction: No - Airway Assessment C-Spine Mobility Assessed: Yes (mp2) TMJ Mobility Assessed: Yes Dentition: Good Dentition - Neurological Assessment Level of Consciousness: Awake, Alert - Anesthesia Plan Anesthesia Risk discussed: Yes Anesthesia Plan: Verified ASA Class: II Anesthesia Type: General [facility] History I have reviewed the patient's past medical history: Yes 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: Reports:: Anxiety, Asthma, Depression, Hypertension Denies:: Cancer, Diabetes Mellitus Type 1, Diabetes Mellitus Type 2, Gastrointestinal Bleed, MRSA, Renal Disease, Seizures, Ulcer *Have you ever received a pneumonia vaccine?: No *Have you received a flu vaccine this season?: No Other 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: Denies: Blood Transfusion Reaction Anesthesia experience/problems:: nac Other Surgeries: Yes: , Tubal Ligation Amputation: No Fractures: No - *Social History Last grade of school completed: High school graduate Smoking Status: Current every day smoker Tobacco Type: cigarettes # Packs/Day (cigarettes): 1 Alcohol Intake: never Substance Use Type: marijuana *Occupational Status:: unemployed Housing: house Household Members: spouse, children *Travel in the last 8 weeks: None - Psychiatric History Pschychiatric History:: Reports:: Anxiety, Depression Family Hx:: Coronary Artery Disease, Diabetes, Heart Attack 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
--- NOTE | 2021-01-11 09:47 | P.OP_ITS ---
Date of procedure: 01/11/21 Pre-op Diagnosis:: Biliary dyskinesia Post-op Diagnosis:: Chronic cholecystitis Procedure performed:: Laparoscopic cholecystectomy Surgeon:: Noel Mcdaniel MD WAREHOUSE SPECIALIST:: Danny Kat Anesthesia: GETIsma Estimated blood loss (mL): 15 Operative findings:: Significant pericholecystic fat stranding Infundibular thickening Dome down approach utilized secondary to above findings Operative note:: After informed consent was obtained, the patient was taken to the operating room and placed in the supine position. General anesthesia was induced and the abdomen was prepped and draped in a sterile fashion. After infiltration with local anesthetic an infraumbilical incision was made. A Veress needle was placed in position. The abdomen was insufflated. A 5 mm optical trocar was placed in position. Under direct visualization, a 12 mm trocar was placed in the subxiphoid position and 2 additional 5 mm trocars were placed in the right upper quadrant. The gallbladder was elevated up and over the liver margin. Fairly severe pericholecystic fat stranding noted. Infundibular thickening also noted. The tissue around the cystic duct was carefully dissected. Secondary to the above findings, the decision was made to utilize a dome down approach . Harmonic radha were utilized to dissect the gallbladder away from the liver margin. Endoloops (x3) were used to control the infundibular. The gallbladder was transected with harmonic radha and then placed in a retrieval bag. It was removed through the subxiphoid trocar site. The right upper quadrant was thoroughly irrigated. No active bleeding or bile leak was noted. Fascia at the subxiphoid trocar site was reapproximated utilizing the NeoClose device. The remaining trocars were removed. All wounds were irrigated and skin was closed with 4-0 Monocryl in a subcuticular fashion. Steri-Strips were applied. The patient's anesthetic agents were reversed and extubation was completed prior to transfer to recovery in stable condition. Condition: stable Disposition: PACU Specimens:: Gallbladder and contents Complications:: No immediate
--- NOTE | 2021-01-11 10:04 | P.PN_ITS ---
[facility] Anesthesia Record Part I Intake, IV Amount: 1,100 Estimated blood loss (mL): 10 Urine output (mL): 0 Blood Pressure: 105/57 SaO2: 90 Pulse Rate: 80 Respiratory Rate: 16 Temperature: 98.3 F Patient is:: Drowsy, Stable Stable to PACU at:: 09:55
--- NOTE | 2021-01-11 13:46 | HMH.ANESII ---
[facility] Anesthesia Record Part II Discharge Time: 11:14 Destination: Surgical Day Care (OP Surgery) PACU nurse assessment reviewed?: Yes Patient Condition:: Good Anesthesia Complications:: None Swallowing reflex intact?: Yes Cyanosis?: No Blood Pressure: 132/87 Pulse Rate: 85 Temperature: 97.1 F Mental Status: Alert & Oriented Pain level:: 5 Nausea and/or vomitting:: None Intake, IV Amount: 0
== END 2021-01-11 12:30 | disposition home or self-care (01) ==
LOC: OR 07:47
PROVIDERS: PCP Physician Assistant; Visit Provider Surgery
PROC: 0FT44ZZ Resection of Gallbladder, Percutaneous Endoscopic Approach (ICD-10-PCS; CPT 47562; principal; 2021-01-11 09:00)
DX: K81.1 Chronic cholecystitis; I10 Essential (primary) hypertension; J45.909 Unspecified asthma, uncomplicated; F41.9 Anxiety disorder, unspecified; F32.9 Major depressive disorder, single episode, unspecified; Z72.0 Tobacco use; Z83.3 Family history of diabetes mellitus; Z82.3 Family history of stroke; Z82.49 Family history of ischemic heart disease and other diseases of the circulatory system; Z88.8 Allergy status to other drugs, medicaments and biological substances; Z79.899 Other long term (current) drug therapy
CPT/HCPCS: 47562; 96374; J2405; J2710

== ENCOUNTER 2021-01-14 16:37 | Outpatient (CLI) | payer MEDICAID, SELFPAY ==
[2021-01-14 16:40] VITALS: BP 146/98; PULSE 90; RESP 20; TEMP 36.6; O2SAT 97
== END 2021-01-14 16:53 | disposition home or self-care (01) ==
LOC: INF 16:38
PROVIDERS: PCP Physician Assistant; Visit Provider Surgery
DX: K82.8 Other specified diseases of gallbladder (principal)
CPT/HCPCS: 96372

== ENCOUNTER 2021-07-01 18:14 | Emergency (ER) | payer MEDICAID, SELFPAY ==
--- NOTE | 2021-07-01 19:31 | PC.NURSE ---
Went out to being pt back and no one came forward, assume pt LWBS
[2021-07-01 19:32] VITALS: BP 0/0; PULSE 0; RESP 0; TEMP -17.7; TEMP 0; O2SAT 0
== END 2021-07-01 19:33 | disposition left against medical advice (07) ==
LOC: UTC 18:16
PROVIDERS: Emergency Provider Nurse Practitioner Family; PCP Family Medicine
DX: Z53.21 Procedure and treatment not carried out due to patient leaving prior to being seen by health care provider (principal)

== ENCOUNTER 2021-10-20 21:22 | Emergency (ER) | payer MEDICAID, SELFPAY ==
[2021-10-20 21:23] VITALS: BP 154/113; PULSE 90; RESP 18; TEMP 36.8; O2SAT 98; BMI 32.6
--- NOTE | 2021-10-20 21:51 | HMH.EDGENADL ---
ED Disposition Clinical Impression: Flank pain, acute Disposition: Home, Self-Care Condition on Discharge: Good Instructions: DI for Acute Pain -- Adult Additional Instructions: see pcp for follow up Prescriptions: predniSONE [Prednisone 20mg Tab] 20 mg PO BID #10 tab Transmission Status: Pending to [facility] Referrals: Malinda Boswell [Primary Care Provider] - - Critical Care Critical Care Time: No Attestation: On 10/20/21, the high probability of a clinically significant, sudden or life threatening deterioration of the following system(s) required my full and direct attention, intervention and personal management. The time I documented below is in addition to time spent performing reported procedures but includes the following listed in this critical care notation. Medical Decision Making - Medical Records Medical records reviewed: Yes: I reviewed the patient's medical records. - [place] Inquiry Pt receiving controlled substance: No Vital Signs: 10/20/21 21:23 Temperature 98.3 F Temperature Source Oral Pulse Rate [Apical] 90 Respiratory Rate 18 Blood Pressure [Right Arm] 154/113 H Blood Pressure Mean [Right Arm] 126 Blood Pressure Source [Right Arm] Automatic Cuff Blood Pressure Position [Right Arm] Sitting 02 Sat by Pulse Oximetry 98 Oxygen Delivery Method Room Air - Lab Data Lab results reviewed: Yes: I reviewed the patient's lab results. Lab Results 10/20/21 21:40: WBC 8.6, RBC 5.60 H, Hgb 16.0, Hct 46.5, MCV 83.0, MCH 28.5, MCHC 34.4, RDW 13.6, Plt Count 300, MPV 7.9, Neut % (Auto) 67.4, Lymph % (Auto) 22.8, [place] % (Auto) 7.0, Eos % (Auto) 2.1, Baso % (Auto) 0.7, Neut # (Auto) 5.8, Lymph # (Auto) 2.0, [place] # (Auto) 0.6, Eos # (Auto) 0.2, Baso # (Auto) 0.1, ESR 10 10/20/21 21:40: Sodium 138, Potassium 3.0 L, Chloride 105, Carbon Dioxide 28, Anion Gap 8.0, BUN 10, Creatinine 0.70, Estimated Creat Clear 147, Estimated GFR 99, Est GFR ( Amer) 120, Glucose 96, Calcium 9.3, Total Bilirubin 0.4, AST 35, ALT 32, Alkaline Phosphatase 114, C-Reactive Protein 12.8 H, Total Protein 7.5, Albumin 4.5, Globulin 3.0, Albumin/Globulin Ratio 1.5, Amylase 56, Procalcitonin 0.130 10/20/21 21:40: Serum HCG, Qual Negative 10/20/21 21:40: Lipase 42 10/20/21 21:40: Urine Color Yellow, Urine Appearance Sl cloudy, Urine pH 6.5, Ur Specific [place] 1.020, Urine Protein Negative, Urine Glucose (UA) Negative, Urine Ketones Negative, Urine Blood Negative, Urine Nitrate Negative, Urine Bilirubin Negative, Urine Urobilinogen 0.2, Ur Leukocyte Esterase Negative Result diagrams: 10/20/21 21:40 10/20/21 21:40 Orders (Tests/Meds): ED MEDICATIONS Generic Name Dose Route Start Last Admin Trade Name Freq PRN Reason Stop Dose Admin Sodium Chloride 1,000 mls @ 999 mls/hr 10/20/21 22:00 10/20/21 22:19 Sod Chlor 0.9% 1000ml Bag IV 10/20/21 23:00 999 mls/hr .Q1H1M [place] Administration Discontinued Medications Generic Name Dose Route Start Last Admin Trade Name Freq PRN Reason Stop Dose Admin Iopamidol 75 ml 10/20/21 22:58 10/20/21 22:58 Iopamidol-370 (76%);100ml Bottle IV 10/20/21 22:59 75 ml ONCE ONE Administration Ketorolac Tromethamine 30 mg 10/20/21 21:54 10/20/21 22:19 Ketorolac 30mg/Ml Vial IV 10/20/21 21:55 30 mg ONCE ONE Administration Methylprednisolone Sodium Succinate 125 mg 10/20/21 21:54 10/20/21 22:17 Methylprednisolone Sod Succ 125mg Vial IV 10/20/21 21:55 Not Given ONCE ONE Ondansetron HCl 4 mg 10/20/21 21:55 10/20/21 22:19 Ondansetron 4mg/2ml Vial IV 10/20/21 21:56 4 mg ONCE ONE Administration Sodium Chloride 10 ml 10/20/21 22:58 10/20/21 22:58 Sodium Chloride 0.9% 10ml Syr (Rad Only) IV 10/20/21 22:59 10 ml ONCE ONE Administration ORDERS Category Date Time Status UA [Urinalysis and Microscopic] Stat Lab 10/20/21 21:40 Results - CT Data CT Scan: Abdomen, Pelvis Time Received: 23:[address] Reviewed: Jaxson
--- NOTE | 2021-10-20 21:52 | CT_ITS ---
PROCEDURE INFORMATION: Exam: CT Abdomen And Pelvis With Contrast Exam date and time: 10/20/2021 9:52 PM Age: 31 years old Clinical indication: Abdominal pain; Flank; Right TECHNIQUE: Imaging protocol: Computed tomography of the abdomen and pelvis with contrast. Radiation optimization: All CT scans at this facility use at least one of these dose optimization techniques: automated exposure control; mA and/or kV adjustment per patient size (includes targeted exams where dose is matched to clinical indication); or iterative reconstruction. Contrast material: ISOVUE; Contrast volume: 75 ml; Contrast route: IV; COMPARISON: CT ABDOMEN PELVIS W CON 11/28/2020 9:01 PM FINDINGS: Lungs: The visualized lung bases are unremarkable. Liver: Unremarkable. No intrahepatic biliary dilation. Gallbladder and bile ducts: Gallbladder is decompressed. No gallbladder wall thickening. No radiopaque stones. Pancreas: Unremarkable. No main pancreatic duct dilation. Spleen: Normal. No splenomegaly. Adrenal glands: Unremarkable. Kidneys and ureters: Symmetric, homogeneous enhancement of both kidneys. No hydronephrosis. Stomach and bowel: No obstruction. No abnormal bowel wall thickening. Appendix: Appendix is surgically absent. Intraperitoneal space: No pneumoperitoneum. No ascites. Vasculature: No abdominal aortic aneurysm. Lymph nodes: Scattered non-specific subcentimeter mesenteric lymph nodes. No frankly enlarged lymph nodes by CT criteria. Urinary bladder: Unremarkable as visualized. No wall thickening. Reproductive: Unremarkable as visualized. Bones/joints: Lower lumbar disc bulging with mild to moderate neural foraminal narrowing at L5-S1. No acute fracture. Soft tissues: Small fat containing umbilical hernia. IMPRESSION: No acute finding or specific etiology for symptoms identified.
--- NOTE | 2021-10-20 21:53 | XR_ITS ---
PROCEDURE INFORMATION: Exam: XR Chest Exam date and time: 10/20/2021 9:53 PM Age: 31 years old Clinical indication: Pain; Right-sided TECHNIQUE: Imaging protocol: XR of the chest. Views: 2 views. COMPARISON: CR CXR1VP XR chest portable 12/18/2018 9:06 PM FINDINGS: Lungs: Unremarkable. No consolidation. Pleural spaces: No pleural effusion. No pneumothorax. Heart/Mediastinum: Normal heart size. Bones/joints: Unremarkable. IMPRESSION: No acute findings.
[2021-10-20 21:57] LABS: Basophils # 0.1 K/mm3 (0-0.2); Basophils % 0.7 % (0.1-2.0); Eosinophils # 0.2 K/mm3 (0.0-0.4); Eosinophils % 2.1 % (0.1-12.0); Hematocrit 46.5 % (37.0-47.0); Lymphocytes % 22.8 % (10-50); Mean Corpuscular HGB Conc 34.4 g/dL (31.8-35.4); Mean Corpuscular Hemoglobin 28.5 pg (27.0-31.2); Mean Platelet Volume 7.9 fl (7.4-10.4); Monocytes # 0.6 K/mm3 (0.1-1.0); Neutrophils # 5.8 K/mm3 (1.8-7.8); Neutrophils % 67.4 % (37.0-80.0); Platelet Count 300 K/mm3 (142-424); Red Cell Distribution Width 13.6 % (11.5-17.5); White Blood Count 8.6 K/mm3 (4.8-10.8)
[2021-10-20 22:02] LABS: Alanine Aminotransferase 32 U/L (12-78); Albumin Level 4.5 g/dl (3.5-5.0); Albumin/Globulin Ratio 1.5 (1.1-1.8); Alkaline Phosphatase 114 U/L (38-126); Amylase 56 U/L (30-110); Aspartate Amino Transferase 35 U/L (14-36); Bilirubin,Total 0.4 mg/dl (0.2-1.3); Blood Urea Nitrogen 10 mg/dl (7-17); Calcium 9.3 mg/dl (8.4-10.2); Carbon Dioxide 28 mmol/L (22.0-30.0); Chloride 105 mmol/L (98-107); Creatinine Clearance Estimated 147 mL/min (50-200); Estimated Glomerular Filt Rate 99 ml/min (>60); GFR (African American) 120 ML/MIN (>60); Glucose 96 mg/dl (74-100); Sodium 138 mmol/L (136-145); Total Protein,Serum 7.5 g/dl (6.3-8.2)
[2021-10-20 22:04] LABS: HCG Qualitative, Serum Negative (Negative)
[2021-10-20 22:05] LABS: Lipase 42 U/L (23-300)
[2021-10-20 22:07] LABS: C-Reactive Protein 12.8 mg/L (0-4)
[2021-10-20 22:24] LABS: Erythrocyte Sedimentation Rate 10 mm/hr (0-20)
[2021-10-20 23:43] LABS: Microscopic, Urine URINE MICROSCOPIC (MICROSCOPIC)
[2021-10-20 23:45] LABS: Appearance,Urine SL CLOUDY (Clear); Bilirubin,Urine Negative (Negative); Blood, Urine Negative (Negative); Color,Urine YELLOW (Yellow); Glucose,Urine (UA) Negative (Negative); Ketones,Urine Negative (Negative); Leukocyte Esterase,Urine Negative (Negative); Nitrate,Urine Negative (Negative); PH,Urine 6.5 (5.0-8.5); Protein,Urine Negative (Negative); Urobilinogen,Urine 0.2 EU/dl (0.2)
[2021-10-20 23:56] LABS: Squamous Epithelial Cell,Urine 20-50 #/hpf (0-5)
[2021-10-20 23:57] LABS: Mucus,Urine 1+ /lpf
[2021-10-21 00:03] VITALS: BP 151/112; PULSE 82; RESP 18; TEMP 37; O2SAT 99
== END 2021-10-21 00:08 | disposition home or self-care (01) ==
PROVIDERS: Emergency Provider Emergency Medicine; PCP Family Medicine
DX: M79.604 Pain in right leg (principal); R10.31 Right lower quadrant pain; F41.8 Other specified anxiety disorders; I10 Essential (primary) hypertension; J45.909 Unspecified asthma, uncomplicated
CPT/HCPCS: 71046; 74177; 80053; 81001; 82150; 83690; 84145; 84703; 85025; 85651; 86140; 96365; 96375; 99282; J2405; Q9967

== ENCOUNTER 2023-07-14 18:41 | Emergency (ER) | payer MEDICAID, SELFPAY ==
[2023-07-14 18:42] VITALS: BP 184/91; PULSE 87; RESP 18; TEMP 36.7; O2SAT 96; BMI 31.7
--- NOTE | 2023-07-14 19:21 | XR_ITS ---
PROCEDURE INFORMATION: Exam: XR Left Knee Exam date and time: 07/14/2023 7:21 PM Age: 33 years old Clinical indication: Injury or trauma; Fall; Blunt trauma; Knee; Left; Additional info: Hurt left leg after a fall TECHNIQUE: Imaging protocol: Radiologic exam of the left knee. Views: 3 views. COMPARISON: CR XR TIBIA FIBULA LT 2V 07/14/2023 7:20 PM FINDINGS: Bones/joints: Normal. Soft tissues: Normal. IMPRESSION: No acute findings.
--- NOTE | 2023-07-14 19:21 | XR_ITS ---
PROCEDURE INFORMATION: Exam: XR Left Tibia and Fibula Exam date and time: 07/14/2023 7:20 PM Age: 33 years old Clinical indication: Injury or trauma; Fall; Blunt trauma; Lower leg; Left; Additional info: Hurt left leg TECHNIQUE: Imaging protocol: Radiologic exam of the left tibia and fibula. Views: 2 views. COMPARISON: CR XR ANKLE LT MIN 3V 07/14/2023 7:18 PM FINDINGS: Bones/joints: Normal. Soft tissues: Normal. IMPRESSION: No acute findings.
--- NOTE | 2023-07-14 19:21 | XR_ITS ---
PROCEDURE INFORMATION: Exam: XR Left Ankle Exam date and time: 07/14/2023 7:18 PM Age: 33 years old Clinical indication: Injury or trauma; Fall; Blunt trauma; Ankle; Left; Additional info: Left leg pain after a fall TECHNIQUE: Imaging protocol: Radiologic exam of the left ankle. Views: 3 or more views. COMPARISON: No relevant prior studies available. FINDINGS: Bones/joints: Normal. Soft tissues: Normal. IMPRESSION: No acute findings.
--- NOTE | 2023-07-14 19:49 | EXP.UTC ---
Discharge Plan Disposition Patient Disposition: Home, Self-Care Condition: Good Prescriptions Prescriptions: New ibuprofen [IBU] 800 mg tablet 800 mg PO Q8HP PRN (Reason: Moderate Pain) Qty: 30 0RF No Action tizanidine 4 mg tablet 4 mg PO HS PRN (Reason: muscle spasticity/RLS ) Qty: 90 0RF phentermine [Adipex-P] 37.5 mg tablet 37.5 mg PO DAILY Qty: 30 0RF Rx Instructions: must administer 30 minutes before or 1-2 hours after breakfast [id number] [Fioricet with Codeine] [id number] mg capsule 1 cap PO Q4H PRN (Reason: migraine headache) Qty: 30 0RF sertraline 100 mg tablet See Rx Instructions .ROUTE .COMPLEX Rx Instructions: TAKE 1 TABLET BY MOUTH DAILY FOR MOOD needs appointment Referrals Follow up/Referrals: Leticia Dillon PA [Primary Care Provider] - See instructions Ricardo Cardenas DO [Staff Physician] - See instructions Activity Restrictions/Add. Instructions Additional Instructions/Restrictions: Rest the extremity, Wear the ashish wrap for compression, Elevate the extremity as tolerated while you are resting for the next few days. Take ibuprofen for pain. I sent in a prescription to your pharmacy. Follow up with Dr. Cardenas (orthopedics). Sometimes there can be fractures that don't show up well on the first set of x-rays. So, you should follow up if you continue to have symptoms. I put in a referral but you need to call his office and schedule an appointment. Follow up with your regular doctor. GO TO THE ER FOR ANY WORSENING SYMPTOMS Clinical Impressions Clinical Impression: Contusion of leg, left, Injury of left leg Instructions Patient Instructions: Contusion, DI for Contusion Discharge ED Provider: Cale Santana [facility] General Stated complaint: AO07/09 LT leg inj Time Seen by Provider: 07/14/23 19:49 History of Present Illness Provider Complaint: She states that 6 days ago she was wrestling and rough housing with her family when her accidentally kicked her on the front of her left lower leg. Since then she states that she has had pain, swelling and bruising at the site. Her symptoms are worse when she walks or bears weight on the leg. She denies any other injury. She denies that she has been assaulted or abused by her or anyone else. Related Data Home Medications Medication Instructions Recorded Confirmed sertraline 100 mg tablet See Rx Instructions .Route 07/14/23 07/14/23 .COMPLEX . Previous Rx's Medication Instructions Recorded butalbital 50 mg-acetaminophen 300 1 cap PO Q4H PRN migraine headache 07/14/23 mg-caffeine 40 mg-codeine 30 mg #30 caps cap (Fioricet with Codeine) ibuprofen 800 mg tablet (IBU) 800 mg PO Q8HP PRN Moderate Pain 07/14/23 #30 tabs phentermine 37.5 mg tablet 37.5 mg PO DAILY #30 tabs 07/14/23 (Adipex-P) tizanidine 4 mg tablet 4 mg PO HS PRN muscle 07/14/23 spasticity/RLS #90 tabs Allergies Allergy/AdvReac Type Severity Reaction Status Date / Time citalopram Allergy Unknown Verified 07/14/23 19:54 clavulanic acid Allergy Unknown Verified 07/14/23 19:54 [From Augmentin] duloxetine Allergy Unknown Verified 07/14/23 19:54 [facility] Disclaimer: The information contained in this section may have been updated after the patient was seen, as this information can be updated by other users. 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 Abnormal weight Anxiety Asthma Attention Deficit Hyperactivity Disorder (ADHD) BMI 29.0-29.9,adult Chronic headaches Depression Frequent headaches Insomnia Leg pain Numbness and tingling in both hands Panic attack Restless leg syndrome RLS (restless legs syndrome) Vitamin D deficiency Social History Smoking Status: Current every day smoker tobacco type: cigarettes packs per day: 1 second hand exposure: No alcohol intake: current
[2023-07-14 20:20] VITALS: BP 184/91; PULSE 87; RESP 18; TEMP 36.7; O2SAT 95
== END 2023-07-14 20:20 | disposition home or self-care (01) ==
PROVIDERS: Emergency Provider Nurse Practitioner Family; PCP Physician Assistant
DX: S89.92XA Unspecified injury of left lower leg, initial encounter (principal); S80.12XA Contusion of left lower leg, initial encounter; F17.210 Nicotine dependence, cigarettes, uncomplicated; E55.9 Vitamin D deficiency, unspecified; G25.81 Restless legs syndrome; G47.00 Insomnia, unspecified; F41.9 Anxiety disorder, unspecified; F32.A Depression, unspecified; F90.9 Attention-deficit hyperactivity disorder, unspecified type; J45.909 Unspecified asthma, uncomplicated; W50.1XXA Accidental kick by another person, initial encounter
CPT/HCPCS: 73562; 73590; 73610; 99212; 99213; 99214; G0463

== ENCOUNTER 2023-12-03 13:11 | Emergency (ER) | payer MEDICAID, SELFPAY ==
[2023-12-03 13:35] VITALS: BP 180/104; PULSE 106; RESP 21; TEMP 36.8; O2SAT 97; BMI 30.7
--- NOTE | 2023-12-03 14:14 | EXP.UTC ---
Discharge Plan Disposition Patient Disposition: Home, Self-Care Condition: Good Prescriptions Prescriptions: New metoprolol succinate 25 mg tablet extended release 24 hr 25 mg PO DAILY Qty: 30 0RF azithromycin [Zithromax Z-Daniel] 250 mg tablet See Rx Instructions .ROUTE .COMPLEX 5 Days Qty: 6 0RF Rx Instructions: For 250 mg dose pack: take 500 mg today (day 1), then 250 mg for 4 days (days 2-5) No Action sertraline 200 mg capsule 200 mg PO DAILY Qty: 90 0RF Referrals Follow up/Referrals: Leticia Dillon PA [Primary Care Provider] - See instructions Activity Restrictions/Add. Instructions Additional Instructions/Restrictions: *Monitor Temp, Over the counter Motrin or Tylenol as directed/as needed Tylenol every 4 hours and Motrin every 6 hours (as long as your family doctor has told you that you can take it) for fever or pain. and straight to ER if unable to lower temp less than 101.0 after medication given *Warm salt water gargles may help to soothe the throat *Throat Lozenges? *Warm fluids like tea with honey may help to soothe the throat? *Sleep elevated *Humidifier/Vaporizer For the next week keep a blood pressure log and make appointment with your Family Doctor next week for recheck Your throat swab was sent for culture. Those results are typically sent to your primary care. Be sure to follow up in 2-3 days with your family doctor/primary care physician if no improvement so they can review those result and treat if necessary. If you don?t have a primary care doctor, I recommend you get one but in the mean time, you will have to return to a walk in clinic Follow up IMMEDIATELY for new or worsening symptoms or no Noticeable improvement over the next 48-72 hours. 911 for difficulty breathing or swallowing Clinical Impressions Clinical Impression: Pharyngitis Qualifiers: Pharyngitis/tonsillitis etiology: unspecified etiology Qualified Code(s): J02.9 - Acute pharyngitis, unspecified Instructions Patient Instructions: Sore Throat, DI for High Blood Pressure [place]charge ED Provider: Aleta Jenkins [facility] [place] General Stated complaint: st congestion Mode of Arrival: Ambulatory Source of Information: Patient Limitations: No Limitations Time Seen by Provider: 12/03/23 14:16 Description of Symptoms (Recalled from Triage Doc. by RN): PATIENT C/O SORE THROAT, SNEEZING AND NASAL CONGESTION SINCE LAST NIGHT. HER DAUGHTER RECENTLY HAD STREP HEENT Symptoms (Recalled from RN notes): Yes Resp Symptoms (Recalled from RN notes): No Skin Symptoms (Recalled from RN notes): No MS Symptoms (Recalled from RN notes): No Functional Status (Recalled from RN notes): WNL History of Present Illness Provider Complaint: Patient states that her daughter recently had strep throat now she is having sore throat, headache, sneezing and nasal congestion that started last night states that she feels like she may have strep throat hurts when she swallows and feels like her tonsils are swollen Related Data Previous Rx's Medication Instructions Recorded sertraline 200 mg capsule 200 mg PO DAILY #90 caps 08/24/23 azithromycin 250 mg tablet See Rx Instructions PO .COMPLEX 5 12/03/23 (Zithromax Z-Daniel) days #6 tabs metoprolol succinate 25 mg 25 mg PO DAILY #30 tabs 12/03/23 tablet,extended release 24 hr Allergies Allergy/AdvReac Type Severity Reaction Status Date / Time citalopram Allergy Unknown Verified 07/14/23 19:54 clavulanic acid Allergy Unknown Verified 07/14/23 19:54 [From Augmentin] duloxetine Allergy Unknown Verified 07/14/23 19:54 Worker's Comp Is this a Worker's Comp case?: No [facility] Disclaimer: The information contained in this section may have been updated after the patient was seen, as this information can be updated by other users. 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 Abnormal weight Anxiety Asthma Attention Deficit Hyperactivity Disorder (ADHD) BMI 29.0-29.9,adult Chronic headaches Depression Frequent headaches Insomnia Leg pain Numbness and tingling in both hands Panic attack Restless leg syndrome RLS (restless legs syndrome) Vitamin D deficiency Social History Smoking Status: Current every day smoker tobacco type: cigarettes packs per day: 1 second hand exposure: No alcohol intake: current substance use type: marijuana current occupational status: unemployed Travel in the last 8 weeks: Inside the [place] household members: spouse housing: house ROS Obtained: Yes All systems reviewed & no additional complaints except as documented and Yes Systems reviewed as appropriate & no additional complaints except as documented Constitutional Constitutional: Reports system reviewed and no additional complaints, except as documented, Reports as per HPI and Reports headache(s) ENT Ears, Nose, Mouth, and Throat: Reports system reviewed and no additional complaints, except as documented, Reports as per HPI, Reports headache(s), Reports nasal congestion, Reports nasal discharge and Reports sore throat Cardiovascular Cardiovascular: Reports system reviewed and no additional complaints, except as documented and Reports as per HPI Respiratory Respiratory: Reports system reviewed and no additional complaints, except as documented and Reports as per HPI Gastrointestinal Gastrointestingal: Reports system reviewed and no additional complaints, except as documented and as per HPI Integumentary/Breasts Skin/Breast: Reports system reviewed and no additional complaints, except as documented and Reports as per HPI Neurologic Neurologic: Reports headache(s) Physical Exam General General appearance: alert and in no apparent distress ENT ENT exam: Present mucous membranes moist Expanded ENT Exam Throat exam: Present tonsillar erythema (swelling noted ) Respiratory Respiratory exam: Present normal lung sounds bilaterally; Absent respiratory distress or wheezes Cardiovascular Cardiovascular exam: Present regular rate, normal rhythm and normal heart sounds Neurological Exam Neurological exam: Present alert, oriented X3 and normal gait Medical Decision Making Acosta Inquiry Pt receiving controlled substance: No Acosta was queried for this patient: No Vital Signs: 12/03/23 13:35 Temperature 98.2 F Temperature Source Oral Pulse Rate [Right] 106 H Respiratory Rate 21 02 Sat by Pulse Oximetry 97 Oxygen Delivery Method Room Air Lab Data Lab results reviewed: Yes I reviewed the patient's lab results. Medical Decision Narrative: patients blood pressure found to be elevated and checked muliple times on both arms to ensure accuracy viewed several of her previous visits and BP and HR was elevated Spoke with PCP Leticia Dillon will start patient on Metoprolol 25mg daily and have her follow up in the office next week for re-evaluation
[2023-12-03 14:34] LABS: UTC Pregnancy Test, Urine Negative (Negative)
[2023-12-03 14:35] LABS: UTC Strep Screen (Rapid) Negative (Negative)
[2023-12-03 14:36] LABS: UTC Influenza A Antigen Negative (Negative); UTC Influenza B Antigen Negative (Negative)
[2023-12-03 14:50] VITALS: BP 180/104; PULSE 106; RESP 21; TEMP 36.8; O2SAT 97
== END 2023-12-03 14:54 | disposition home or self-care (01) ==
PROVIDERS: Emergency Provider Nurse Practitioner; PCP Physician Assistant
DX: J02.9 Acute pharyngitis, unspecified (principal); R06.7 Sneezing; R09.81 Nasal congestion; R51.9 Headache, unspecified; J45.909 Unspecified asthma, uncomplicated; F17.210 Nicotine dependence, cigarettes, uncomplicated
CPT/HCPCS: 81025; 87804; 87880; 99212; 99214; G0463

== ENCOUNTER 2023-12-10 22:22 | Outpatient (CLI) | payer MEDICAID, SELFPAY ==
[2023-12-10 18:54] LABS: Basophils # 0.1 K/mm3 (0-0.2); Basophils % 0.8 % (0.1-2.0); Eosinophils # 0.4 K/mm3 (0.0-0.4); Eosinophils % 4.4 % (0.1-12.0); Hematocrit 38.1 % (37.0-47.0); Hemoglobin 12.7 g/dL (12.2-16.2); Lymphocytes # 2.4 K/mm3 (0.7-4.5); Lymphocytes % 26.5 % (10-50); Mean Corpuscular HGB Conc 33.4 g/dL (31.8-35.4); Mean Corpuscular Hemoglobin 26.6 pg (27.0-31.2); Mean Corpuscular Volume 79.7 fl (81-99); Mean Platelet Volume 8.9 fl (7.4-10.4); Monocytes # 0.4 K/mm3 (0.1-1.0); Monocytes % 4.5 % (1.7-9.3); Neutrophils # 5.8 K/mm3 (1.8-7.8); Neutrophils % 63.8 % (37.0-80.0); Platelet Count 364 K/mm3 (142-424); Red Blood Count 4.78 M/mm3 (4.20-5.40); Red Cell Distribution Width 14.8 % (11.5-17.5); White Blood Count 9.1 K/mm3 (4.8-10.8)
[2023-12-10 19:01] LABS: Alanine Aminotransferase 27 U/L (12-78); Albumin Level 4.3 g/dl (3.5-5.0); Albumin/Globulin Ratio 1.7 (1.1-1.8); Alkaline Phosphatase 89 U/L (38-126); Anion Gap 11.8 mEq/L (5-15); Aspartate Amino Transferase 28 U/L (14-36); Bilirubin,Total 0.4 mg/dl (0.2-1.3); Blood Urea Nitrogen 12 mg/dl (7-17); Calcium 9.2 mg/dl (8.4-10.2); Carbon Dioxide 24 mmol/L (22.0-30.0); Chloride 107 mmol/L (98-107); Chol/HDL Ratio 4.2 (1-3.5); Cholesterol 180 mg/dl (140-200); Estimated Glomerular Filt Rate 98 ml/min (>60); GFR (African American) 118 ML/MIN (>60); Globulin 2.6 g/dL (1.3-3.2); Glucose 109 mg/dl (74-100); HDL Cholesterol 43 mg/dl (40-60); Potassium 3.8 mmoL/L (3.5-5.1); Sodium 139 mmol/L (136-145); Total Protein,Serum 6.9 g/dl (6.3-8.2); Triglycerides 109 mg/dl (30-150); VLDL Cholesterol 22 mg/dL (0-40)
[2023-12-10 19:12] LABS: Direct LDL Cholesterol 104.49 mg/dL (100-129)
[2023-12-10 19:18] LABS: 25-OH Vitamin D, Total 25.9 ng/mL (30-100)
[2023-12-10 19:31] LABS: Thyroid Stimulating Hormone 1.88 uIU/mL (0.465-4.68)
== END 2023-12-10 23:59 ==
LOC: LAB.DROPOF 22:22
PROVIDERS: PCP Family Medicine; Visit Provider Family Medicine
DX: I10 Essential (primary) hypertension (principal); E55.9 Vitamin D deficiency, unspecified; E66.9 Obesity, unspecified; Z68.30 Body mass index [BMI] 30.0-30.9, adult; F17.210 Nicotine dependence, cigarettes, uncomplicated
CPT/HCPCS: 80053; 80061; 82306; 83036; 84443; 85025

== ENCOUNTER 2023-12-16 04:00 | Emergency (ER) | payer MEDICAID, SELFPAY ==
[2023-12-16] VITALS (7 sets, daily range): BP systolic 138–190; BP diastolic 88–126; PULSE 84–98; RESP 16–18; TEMP 36.6–36.9; O2SAT 96–99; BMI 30.2
--- NOTE | 2023-12-16 04:21 | CT_ITS ---
PROCEDURE INFORMATION: Exam: CTA Head With Contrast, Arteriography Exam date and time: 12/16/2023 5:08 AM Age: 33 years old Clinical indication: Numbness; Additional info: Intermittent left face/arm numbness TECHNIQUE: Imaging protocol: Computed tomographic angiography of the head with contrast. Exam focused on the arteries. 3D rendering (Not supervised by radiologist): MIP and/or 3D reconstructed images were created by the technologist. Radiation optimization: All CT scans at this facility use at least one of these dose optimization techniques: automated exposure control; mA and/or kV adjustment per patient size (includes targeted exams where dose is matched to clinical indication); or iterative reconstruction. Contrast material: ISOVUE; Contrast volume: 100 ml; Contrast route: INTRAVENOUS (IV); COMPARISON: CT HEAD/BRAIN WO CON 12/16/2023 5:05 AM FINDINGS: ANTERIOR CIRCULATION: Right internal carotid artery: Intracranial segment is patent with no significant stenosis. No aneurysm. Right middle cerebral artery: No occlusion or significant stenosis. No aneurysm. Right anterior cerebral artery: No occlusion or significant stenosis. No aneurysm. Left internal carotid artery: Intracranial segment is patent with no significant stenosis. No aneurysm. Left middle cerebral artery: No occlusion or significant stenosis. No aneurysm. Left anterior cerebral artery: No occlusion or significant stenosis. No aneurysm. POSTERIOR CIRCULATION: Right vertebral artery: No occlusion or significant stenosis. No aneurysm. Left vertebral artery: No occlusion or significant stenosis. No aneurysm. Basilar artery: No occlusion or significant stenosis. No aneurysm. Right posterior cerebral artery: No occlusion or significant stenosis. No aneurysm. Left posterior cerebral artery: No occlusion or significant stenosis. No aneurysm. Brain: No definite mass, mass effect, or midline shift. Cerebral ventricles: No ventriculomegaly. Bones/joints: Unremarkable. No acute fracture. Soft tissues: Unremarkable. IMPRESSION: No large vessel stenosis or occlusion.
--- NOTE | 2023-12-16 04:21 | CT_ITS ---
PROCEDURE INFORMATION: Exam: CT Head Without Contrast Exam date and time: 12/16/2023 5:05 AM Age: 33 years old Clinical indication: Numbness / parasthesia; Additional info: Intermittent left face/arm numbness TECHNIQUE: Imaging protocol: Computed tomography of the head without contrast. Radiation optimization: All CT scans at this facility use at least one of these dose optimization techniques: automated exposure control; mA and/or kV adjustment per patient size (includes targeted exams where dose is matched to clinical indication); or iterative reconstruction. COMPARISON: HEADWO CT head/brain wo con 12/24/2017 8:10 AM FINDINGS: Brain: Mild atrophy. No intracranial hemorrhage. No mass. No definite edema. Cerebral ventricles: No hydrocephalus. Paranasal sinuses: Scattered minimal mucosal thickening. Mild partial opacification of LEFT ethmoid sinus. Mastoid air cells: No significant effusion. Orbital cavities: Unremarkable as visualized. Bones/joints: No acute fracture. Soft tissues: Unremarkable. IMPRESSION: No definite acute intracranial abnormality. If symptoms persist, consider MRI.
--- NOTE | 2023-12-16 04:21 | CT_ITS ---
PROCEDURE INFORMATION: Exam: CTA Neck With Contrast Exam date and time: 12/16/2023 5:08 AM Age: 33 years old Clinical indication: Numbness; Additional info: Intermittent left face/arm numbness TECHNIQUE: Imaging protocol: Computed tomographic angiography of the neck with contrast. Exam focused on the cervical segments of the vasculature. 3D rendering (Not supervised by radiologist): MIP and/or 3D reconstructed images were created by the technologist. Radiation optimization: All CT scans at this facility use at least one of these dose optimization techniques: automated exposure control; mA and/or kV adjustment per patient size (includes targeted exams where dose is matched to clinical indication); or iterative reconstruction. Contrast material: ISOVUE; Contrast volume: 100 ml; Contrast route: INTRAVENOUS (IV); COMPARISON: CT ANGIO HEAD 12/16/2023 5:08 AM FINDINGS: Right common carotid artery: No stenosis. No dissection or occlusion. Right internal carotid artery: No stenosis of the extracranial segment. No dissection or occlusion. Right external carotid artery: No occlusion or stenosis of the origin. Left common carotid artery: No stenosis. No dissection or occlusion. Left internal carotid artery: No stenosis of the extracranial segment. No dissection or occlusion. Left external carotid artery: No occlusion or stenosis of the origin. Right vertebral artery: No stenosis. No dissection or occlusion. Left vertebral artery: No stenosis. No dissection or occlusion. Soft tissues: There is soft tissue fullness in the roof of the nasopharynx. Please correlate clinically and with direct visualization. There is opacification of a posterior ethmoid air cell on the left. Bones/joints: No acute fracture. IMPRESSION: No stenosis or occlusion. Soft tissue fullness in the roof of the nasopharynx. Please correlate with direct visualization. REFERENCES: NASCET CRITERIA. The degree of stenosis in the cervical segment of the internal carotid artery is based on NASCET criteria. Normal is no stenosis. Mild is less than 50% stenosis. Moderate is 50-69% stenosis. Severe is 70% to 99% stenosis. Total occlusion is no detectable patent lumen.
[2023-12-16] MEDS: LABETALOL 20MG/4ML SYRINGE 20 MG IV (04:32)
[2023-12-16 04:34] LABS: Basophils # 0.1 K/mm3 (0-0.2); Basophils % 0.7 % (0.1-2.0); Eosinophils # 0.5 K/mm3 (0.0-0.4); Eosinophils % 3.7 % (0.1-12.0); Hemoglobin 12.8 g/dL (12.2-16.2); Lymphocytes # 3.7 K/mm3 (0.7-4.5); Lymphocytes % 29.5 % (10-50); Mean Corpuscular HGB Conc 33.8 g/dL (31.8-35.4); Mean Corpuscular Hemoglobin 26.8 pg (27.0-31.2); Mean Corpuscular Volume 79.3 fl (81-99); Mean Platelet Volume 8.7 fl (7.4-10.4); Monocytes # 0.7 K/mm3 (0.1-1.0); Monocytes % 5.5 % (1.7-9.3); Neutrophils # 7.5 K/mm3 (1.8-7.8); Neutrophils % 60.6 % (37.0-80.0); Platelet Count 371 K/mm3 (142-424); Red Blood Count 4.79 M/mm3 (4.20-5.40); Red Cell Distribution Width 14.6 % (11.5-17.5); White Blood Count 12.4 K/mm3 (4.8-10.8)
--- NOTE | 2023-12-16 04:36 | ECG_ITS ---
APPROVED REPORT Exam: Resting ECG HR:87 bpm ECG Measurements Heart Rate 87 AXES VA 154 P 69 QRSd 93 QRS 38 QT 374 T 55 QTc 418 Conclusion SINUS RHYTHM NORMAL ECG UNCONFIRMED REPORT Electronically signed by : Anderson Alvarado MD 12/16/2023 21:46:02
[2023-12-16 04:37] LABS: Chloride 103 mmol/L (98-107); Potassium 3.3 mmoL/L (3.5-5.1); Sodium 139 mmol/L (136-145)
[2023-12-16 04:40] LABS: Alanine Aminotransferase 30 U/L (12-78); Albumin Level 4.3 g/dl (3.5-5.0); Albumin/Globulin Ratio 1.4 (1.1-1.8); Alkaline Phosphatase 98 U/L (38-126); Anion Gap 11.3 mEq/L (5-15); Aspartate Amino Transferase 29 U/L (14-36); Bilirubin,Total 0.4 mg/dl (0.2-1.3); Blood Urea Nitrogen 19 mg/dl (7-17); Carbon Dioxide 28 mmol/L (22.0-30.0); Creatinine Clearance Estimated 117 mL/min (50-200); Estimated Glomerular Filt Rate 84 ml/min (>60); GFR (African American) 101 ML/MIN (>60); Total Protein,Serum 7.3 g/dl (6.3-8.2)
[2023-12-16 04:41] LABS: Calcium 9.2 mg/dl (8.4-10.2); Glucose 104 mg/dl (74-100)
[2023-12-16 04:52] LABS: Troponin I < 0.01 ng/ml (0.00-0.034)
[2023-12-16 04:55] LABS: HCG Qualitative, Serum Negative (Negative)
[2023-12-16] MEDS: IOPAMIDOL-370 (76%);100ML BOTTLE 100 ML IV (05:17)
[2023-12-16] MEDS: SODIUM CHLORIDE 0.9% 10ML SYR (RAD ONLY) 10 ML IV (05:17)
--- NOTE | 2023-12-16 05:28 | ED_ITS ---
Discharge Plan Disposition Patient Disposition: Home, Self-Care Prescriptions Prescriptions: No Action sertraline 200 mg capsule 200 mg PO DAILY Qty: 90 0RF tizanidine 4 mg tablet 4 mg PO DAILY hydrochlorothiazide 25 mg tablet 25 mg PO DAILY Qty: 30 2RF ergocalciferol (vitamin D2) 1,250 mcg (50,000 unit) capsule 1,250 mcg PO WEEKLY 30 Days Qty: 5 0RF metoprolol succinate 25 mg tablet extended release 24 hr 25 mg PO DAILY Qty: 30 0RF Referrals Follow up/Referrals: Leticia Dillon PA [Primary Care Provider] - See instructions Activity Restrictions/Add. Instructions Additional Instructions/Restrictions: Please follow-up with your primary care provider for further evaluation of your symptoms and management of your blood pressure. Please return to the emergency department if you develop any new or worsening symptoms or become concerned for your health. Clinical Impressions Clinical Impression: Idiopathic trigeminal neuropathy Hypertension Qualifiers: Hypertension type: unspecified Qualified Code(s): I10 - Essential (primary) hypertension Discharge ED Provider: Kojo Prieto Adult HPI General Chief complaint: Recheck/Abnormal Lab/Rx Stated complaint: Left side of face goes numb Time Seen by Provider: 12/16/23 04:09 Mode of Arrival: Ambulatory Source of Information: Patient Limitations: No Limitations Description of Symptoms (Recalled from ER Triage Doc. by RN): pt c/o lt facial numbness that comes and goes x a fewe days. pt is not currently have numbness and was recently started on bp meds History of Present Illness HPI narrative: 33-year-old female with history of hypertension, psychiatric comorbidities, presents with high blood pressure and intermittent facial numbness. She reports that over the last 3 days, her face will intermittently go numb. She reports it is the left side of her face including the forehead, cheek and chin. She reports that sometimes the left side of her tongue also goes numb. She reports that sometimes her left arm feels heavy. She denies any current symptoms of facial numbness. No reported facial drooping. She reports that she has had some intermittent chest pain and headache as well, currently is not experiencing any chest pain or headache. She denies any vision changes or headaches associated with the numbness. She denies any dizziness. She denies any recent fever or illness. Related Data Home Medications Medication Instructions Recorded Confirmed tizanidine 4 mg tablet 4 mg PO DAILY 12/10/23 12/16/23 Previous Rx's Medication Instructions Recorded sertraline 200 mg capsule 200 mg PO DAILY #90 caps 08/24/23 metoprolol succinate 25 mg 25 mg PO DAILY #30 tabs 12/03/23 tablet,extended release 24 hr hydrochlorothiazide 25 mg tablet 25 mg PO DAILY #30 tabs 12/10/23 ergocalciferol (vitamin D2) 1,250 1,250 mcg PO WEEKLY 1 month #5 caps 12/11/23 mcg (50,000 unit) capsule Allergies Allergy/AdvReac Type Severity Reaction Status Date / Time citalopram Allergy Unknown Verified 12/10/23 15:28 clavulanic acid Allergy Unknown Verified 12/10/23 15:28 [From Augmentin] duloxetine Allergy Unknown Verified 12/10/23 15:28 [facility] Disclaimer: The information contained in this section may have been updated after the patient was seen, as this information can be updated by other users. 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 Abnormal weight Anxiety Asthma Attention Deficit Hyperactivity Disorder (ADHD) BMI 29.0-29.9,adult Chronic headaches Depression Frequent headaches Insomnia Leg pain Numbness and tingling in both hands Panic attack Restless leg syndrome RLS (restless legs syndrome) Vitamin D deficiency Social History Smoking Status: Current every day smoker tobacco type: cigarettes packs per day: 1 second hand exposure: No alcohol intake: current substance use type: marijuana current occupational status: unemployed Travel in the last 8 weeks: [place] the [place] household members: spouse housing: house ROS Obtained: Yes All systems reviewed & no additional complaints except as documented Physical Exam General General appearance: alert and in no apparent distress Head Head exam: atraumatic and normocephalic Eye Eye exam: Present normal appearance, PERRL and EOMI ENT ENT exam: Present normal oropharynx and normal external ear exam Neck Neck exam: Present normal inspection and full ROM Chest Chest inspection: Present normal inspection and symmetric chest wall rise; Absent tenderness Respiratory Respiratory exam: Present normal lung sounds bilaterally; Absent respiratory distress Cardiovascular Cardiovascular exam: Present regular rate and normal rhythm Abdominal Exam Abdominal exam: Present soft; Absent distention, tenderness or guarding Extremities Exam Extremities exam: Present normal inspection; Absent edema or joint swelling Back Exam Back exam: Present normal inspection; Absent tenderness Neurological Exam Neurological exam: Present alert and oriented X3; Absent motor sensory deficit Psychiatric Psychiatric exam: Present normal affect and normal mood Skin Skin exam: Present warm, dry and normal color Lymphatic Lymphatic Findings: no adenopathy Medical Decision Making Medical Records Medical records reviewed: Yes I reviewed the patient's medical records. Acosta Inquiry Pt receiving controlled substance: No Acosta was queried for this patient: No Vital Signs: 12/16/23 04:02 12/16/23 04:32 12/16/23 04:20 Temperature 97.8 F Temperature Source Oral Pulse Rate 84 Pulse Rate [Right] 93 H Respiratory Rate 16 Blood Pressure 189/126 H 189/126 H Blood Pressure [Right Arm] 190/120 H Blood Pressure Mean Blood Pressure Mean [Right Arm] 143 Blood Pressure Source [Right Arm] Manual Cuff/ Auscultation 02 Sat by Pulse Oximetry 96 97 Oxygen Delivery Method 12/16/23 04:34 12/16/23 05:00 12/16/23 05:20 Temperature Temperature Source Pulse Rate 98 H 88 90 Pulse Rate [Right] Respiratory Rate 18 Blood Pressure 159/115 H 138/88 150/95 H Blood Pressure [Right Arm] Blood Pressure Mean 106 Blood Pressure Mean [Right Arm] Blood Pressure Source [Right Arm] 02 Sat by Pulse Oximetry 99 97 97 Oxygen Delivery Method Room Air Lab Data Lab results reviewed: Yes I reviewed the patient's lab results. Lab Results 12/16/23 04:26: WBC 12.4 H, RBC 4.79, Hgb 12.8, Hct 38.0, MCV 79.3 L, MCH 26.8 L , MCHC 33.8, RDW 14.6, Plt Count 371, MPV 8.7, Neut % (Auto) 60.6, Lymph % (Auto) 29.5, [place] % (Auto) 5.5, Eos % (Auto) 3.7, Baso % (Auto) 0.7, Neut # (Aut o) 7.5, Lymph # (Auto) 3.7, [place] # (Auto) 0.7, Eos # (Auto) 0.5 H, Baso # (Auto) 0.1, Sodium 139, Potassium 3.3 L, Chloride 103, Carbon Dioxide 28, Anion Gap 11.3, BUN 19 H, Creatinine 0.80, Estimated Creat Clear 117, Estimated GFR 84, Est GFR ( Amer) 101, Glucose 104 H, Calcium 9.2, Total Bilirubin 0.4, AST 29, ALT 30, Alkaline Phosphatase 98, Troponin I < 0.01, Total Protein 7.3, Albumin 4.3, Globulin 3.0, Albumin/Globulin Ratio 1.4, Serum HCG, Qual Negative 12/16/23 04:26 12/16/23 04:26 Orders (Tests/Meds): ED MEDICATIONS Discontinued Medications Generic Name Dose Route Start Last Admin Trade Name Freq PRN Reason Stop Dose Admin Iopamidol 100 ml 12/16/23 05:16 12/16/23 05:17 Iopamidol-370 (76%);100ml Bottle IV 12/16/23 05:17 100 ml ONCE ONE Administration Labetalol HCl 20 mg 12/16/23 04:27 12/16/23 04:32 Labetalol 20mg/4ml Syringe IV 12/16/23 04:28 20 mg ONCE ONE Administration Sodium Chloride 10 ml 12/16/23 05:16 12/16/23 05:17 Sodium Chloride 0.9% 10ml Syr (Rad Only) IV 12/16/23 05:17 10 ml ONCE ONE Administration ORDERS Category Date Time Status CT angio head Stat Cat Scan 12/16/23 04:[address] angio neck Stat Cat Scan 12/16/23 04:[address] head/brain wo con Stat Cat Scan 12/16/23 04:21 Completed CBC w/Auto Diff [Complete Blood Count Auto Diff] Stat Lab 12/16/23 04:26 Completed CMP [Comprehensive Metabolic Panel] Stat Lab 12/16/23 04:26 Completed Serum [HCG Qualitative, Serum] Stat Lab 12/16/23 04:26 Completed Troponin I Q3H Lab 12/16/23 04:26 Completed Troponin I Q3H Lab 12/16/23 07:30 Ordered UA [Urinalysis and Microscopic] Stat Lab 12/16/23 04:24 Ordered Medical Decision Narrative: 33-year-old female with poorly controlled hypertension presents with 3 days of intermittent left-sided facial numbness without motor dysfunction. Episodes last for 3 to 5 minutes. On arrival patient is not experiencing any numbness. History was obtained via conversation with patient, chart review. On arrival, patient is afebrile, hypertensive with blood pressures 200/120s. Full physical exam performed and significant for normal cranial nerve exam, no focal neurologic deficits. Approximately 20 minutes after arrival, patient reports that symptoms have returned. On my evaluation, she has mildly decreased sensation in the V1,2,3 distributions. These were transient in nature. Differential includes but is not limited to stroke, trigeminal neuropathy, hypertensive emergency, autoimmune pathology, intracranial lesion. Patient was given IV labetalol 20 mg for symptomatic management and correction of underlying abnormalities. Workup initiated including CBC CMP troponin beta- hCG EKG UA CT head, CTA head neck On re-evaluation, patient [remains afebrile, HD stable.] Blood pressure markedly decreased after single dose of IV labetalol, now 140s over 90s Laboratory workup independently interpreted by me and significant for mild leukocytosis, mild hypokalemia, negative troponin, negative . Imaging independently interpreted by me and significant for no large intracranial mass lesion, no bleeding, no large vessel occlusion. See radiology read for full review of final results. EKG independently interpreted by me and significant for sinus rhythm, rate of 87, no concerning ST or T wave changes. Transfer for stroke workup was considered, but deemed unnecessary due to low concern for stroke at this time.. Given patient history, exam and workup, patient's presentation most likely represents trigeminal neuropathy of uncertain etiology. However, significant diagnostic uncertainty remains. Given history, exam and negative workup I do not think she is having an acute stroke or TIA that requires inpatient workup at this moment. Patient also has uncontrolled hypertension but blood pressure improved and remained within normal limits after single dose of IV labetalol, making hypertensive emergency much less likely. I had extensive discussion with patient regarding her symptoms. Questions were answered. Strict return precautions given. She will follow-up with PCP for further assessment. Procedures Risk/Benefits of Procedure(s) Were Explained: Yes Critical Care Critical Care Time Critical Care Time: No
== END 2023-12-16 06:39 | disposition home or self-care (01) ==
PROVIDERS: Emergency Provider Emergency Medicine; PCP Physician Assistant
DX: G50.0 Trigeminal neuralgia (principal); I10 Essential (primary) hypertension; R20.0 Anesthesia of skin; J45.909 Unspecified asthma, uncomplicated; F17.210 Nicotine dependence, cigarettes, uncomplicated
CPT/HCPCS: 70450; 70496; 70498; 80053; 84484; 84703; 85025; 93005; 96374; 99285; Q9967

== ENCOUNTER 2023-12-21 07:40 | Outpatient (CLI) | payer MEDICAID, SELFPAY ==
--- NOTE | 2023-12-21 07:57 | CA_ITS ---
FINAL REPORT TECHNIQUE: Grayscale, color Doppler and duplex Doppler ultrasound of the kidneys, aorta and renal arteries was performed. Multiple velocities were measured. CLINICAL HISTORY: HTN,SMOKER COMPARISON: None FINDINGS: Aorta velocity: 143 cm/sec Right kidney: 11.8 cm. No evidence of hydronephrosis or mass. Right intrarenal RI: 0.55-0.74 Right renal artery velocity: 254 cm/sec. Right RAR (Renal artery-Aortic Ratio): 1.78 Left Kidney: 11.9 cm. No evidence of hydronephrosis or mass. Left intrarenal RI: 0.27-0.48 Left renal artery velocity: 175 cm/sec. Left RAR (Renal Artery-Aortic Ratio): 1.2 to IMPRESSION: Less than 60% renal artery stenosis on the right. No evidence of renal artery stenosis on the left. CT angiogram or postcontrast MR angiogram would be more sensitive for evaluation of possible renal artery stenosis. Reviewed, Interpreted and Dictated by Nitesh Lisa III, MD Transcribed by Mary Martin Authenticated and [facility]
--- NOTE | 2023-12-21 08:19 | US_ITS ---
FINAL REPORT CLINICAL HISTORY: .hypertension COMPARISON: None FINDINGS: RENAL ULTRASOUND Ultrasound images of the kidneys were obtained. Limited images of the liver parenchyma demonstrates normal echogenicity. The spleen is borderline enlarged measuring 13.3 cm The right kidney measures 10.2 cm in length. It is normal echogenicity. There is no hydronephrosis. There is no mass The left kidney measures 11.9 cm in length. It is normal echogenicity. There is no hydronephrosis. There is no mass. IMPRESSION: Normal renal ultrasound. Borderline splenomegaly. Reviewed, Interpreted and Dictated by Nitesh Lisa III, MD Transcribed by Mary Martin Authenticated and [facility]
== END 2023-12-21 23:59 ==
LOC: RT 07:42
PROVIDERS: PCP Physician Assistant; Visit Provider Family Medicine
DX: I10 Essential (primary) hypertension (principal); F17.210 Nicotine dependence, cigarettes, uncomplicated
CPT/HCPCS: 76770; 93976

== ENCOUNTER 2023-12-30 10:27 | Outpatient (CLI) | payer MEDICAID, SELFPAY ==
[2023-12-30 12:49] LABS: Vitamin B12 412 pg/mL (239-931)
[2024-01-10 17:32] LABS: 1,25 Dihydroxy Vitamin D 37 pg/mL (.); 1,25-Dihydroxy, Vitamin D-2 13 pg/mL (.); 1,25-Dihydroxy, Vitamin D-3 24 pg/mL (.)
== END 2023-12-30 23:59 ==
LOC: LAB 10:27
PROVIDERS: PCP Physician Assistant; Visit Provider Specialist
DX: R29.2 Abnormal reflex (principal); R20.0 Anesthesia of skin; E66.9 Obesity, unspecified; Z68.31 Body mass index [BMI] 31.0-31.9, adult
CPT/HCPCS: 36415; 82607; 82652

== ENCOUNTER 2024-01-18 09:16 | Outpatient (CLI) | payer MEDICAID, SELFPAY ==
--- NOTE | 2024-01-18 09:17 | MR_ITS ---
FINAL REPORT CLINICAL HISTORY: Facial numbness, nasopharingeal mass 15ml prohance COMPARISON: None FINDINGS: Multiplanar MR imaging of the brain was performed without and with contrast. There is no evidence of intracranial hemorrhage or mass. No abnormal extra-axial fluid collection is seen. The ventricular size is within normal limits. There is no evidence of shift of the midline structures. The posterior fossa and brainstem have an unremarkable appearance. No area of abnormal restricted diffusion is identified. No abnormal contrast enhancement is seen. Normal major vessel vascular flow voids are noted. There is mucosal thickening and fluid present in the left sphenoid sinus consistent with sphenoid sinusitis. There is also soft tissue thickening involving several left ethmoid air cells. IMPRESSION: No acute intracranial abnormality identified. Left sphenoid sinusitis and soft tissue thickening involving several left ethmoid air cells. Reviewed, Interpreted and Dictated by Nitesh Lisa III, MD Transcribed by Raissa Winchester Authenticated and . [facility]
[2024-01-18] MEDS: GADOTERIDOL INJ 17ML SYRINGE 15 ML IV (10:09)
[2024-01-18] MEDS: SODIUM CHLORIDE 0.9% 10ML SYR (RAD ONLY) 10 ML IV (10:09)
== END 2024-01-18 23:59 ==
LOC: RAD 09:17
PROVIDERS: PCP Physician Assistant; Visit Provider Specialist
DX: R20.0 Anesthesia of skin (principal); I10 Essential (primary) hypertension; J39.2 Other diseases of pharynx
CPT/HCPCS: 70553; A9576

== ENCOUNTER 2024-02-26 16:00 | Outpatient (CLI) | payer MEDICAID, SELFPAY ==
--- NOTE | 2024-02-26 16:01 | US_ITS ---
PROCEDURE INFORMATION: Exam: US Pelvis, Transvaginal Exam date and time: 02/26/2024 4:08 PM Age: 34 years old Clinical indication: Other: Heavy bleeding; Additional info: Abnormal uterine bleeding/heavy periods LABS AND CLINICAL REPORTS: Last menstrual period start date: 01/30/2024 TECHNIQUE: Imaging protocol: Real-time transvaginal pelvic ultrasound with image documentation. Transvaginal imaging was used for better evaluation of the endometrium, adnexa, and/or cervix. COMPARISON: US CA RENAL ARTERY DUPLEX 12/21/2023 8:00 AM FINDINGS: Uterus: Uterus measures 7.62 cm x 5.68 cm x 4.59 cm. Endometrium 7.9 mm. The endometrium contains solid echogenic structure with vascular flow in the lower uterine segment It measures 10 x 9 mm and may represent a endometrial polyp or endometrial mass. Right ovary/adnexa: Right ovary measures 3.35x 1.9x 3.8 cm . Peak systolic velocity right ovary 12 cm/s Left ovary/adnexa: Left ovary measures 4.57 cm x 2.22 cm x 3.84 cm. Left ovarian volume is 20.4 mL. Peak systolic velocity left ovary 8 cm/s Intraperitoneal space: No free fluid. Soft tissues: scar 1.26 x 1 cm by 0.7 cm IMPRESSION: The endometrium contains solid echogenic structure with vascular flow in the lower uterine segment It measures 10 x 9 mm and may represent a endometrial polyp or endometrial mass. Recommend gynecology consult
== END 2024-02-26 23:59 | disposition home or self-care (01) ==
LOC: RAD 16:01
PROVIDERS: PCP Physician Assistant; Visit Provider Nurse Practitioner Obstetrics & Gynecology
DX: N93.9 Abnormal uterine and vaginal bleeding, unspecified (principal)
CPT/HCPCS: 76830

== ENCOUNTER 2024-03-16 13:53 | Emergency (ER) | payer MEDICAID, SELFPAY ==
[2024-03-16 13:54] VITALS: BP 103/67; PULSE 76; RESP 18; TEMP 36.7; O2SAT 99; BMI 32.1
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
[2024-03-16 14:36] VITALS: BP 96/64; PULSE 69; O2SAT 97
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
[2024-03-16] MEDS: IBUPROFEN 800 MG TABLET PO (14:58)
[2024-03-16] MEDS: ACETAMINOPHEN 500MG TAB 1000 MG PO (14:58)
[2024-03-16 15:37] LABS: Basophils # 0.1 K/mm3 (0-0.2); Basophils % 1.2 % (0.1-2.0); Chloride 103 mmol/L (98-107); Eosinophils # 0.4 K/mm3 (0.0-0.4); Eosinophils % 3.9 % (0.1-12.0); Hematocrit 38.3 % (37.0-47.0); Hemoglobin 12.3 g/dL (12.2-16.2); Lymphocytes # 2.4 K/mm3 (0.7-4.5); Lymphocytes % 26.4 % (10-50); Mean Corpuscular HGB Conc 32.2 g/dL (31.8-35.4); Mean Corpuscular Hemoglobin 26.9 pg (27.0-31.2); Mean Corpuscular Volume 83.3 fl (81-99); Mean Platelet Volume 8.3 fl (7.4-10.4); Monocytes # 0.4 K/mm3 (0.1-1.0); Monocytes % 4.4 % (1.7-9.3); Neutrophils # 5.7 K/mm3 (1.8-7.8); Platelet Count 347 K/mm3 (142-424); Red Blood Count 4.59 M/mm3 (4.20-5.40); Red Cell Distribution Width 16.9 % (11.5-17.5); Sodium 138 mmol/L (136-145); White Blood Count 8.9 K/mm3 (4.8-10.8)
[2024-03-16 15:38] LABS: Potassium 3.7 mmoL/L (3.5-5.1)
[2024-03-16 15:40] LABS: Blood Urea Nitrogen 19 mg/dl (7-17); Creatinine Clearance Estimated 140 mL/min (50-200); Estimated Glomerular Filt Rate 97 ml/min (>60); GFR (African American) 117 ML/MIN (>60)
[2024-03-16 15:41] LABS: Anion Gap 10.7 mEq/L (5-15); Calcium 9.2 mg/dl (8.4-10.2); Carbon Dioxide 28 mmol/L (22.0-30.0); Glucose 93 mg/dl (74-100)
[2024-03-16 15:48] LABS: Microscopic, Urine URINE MICROSCOPIC (MICROSCOPIC)
[2024-03-16 15:56] LABS: Appearance,Urine CLEAR (Clear); Bilirubin,Urine Negative (Negative); Blood, Urine 1+ (Negative); Color,Urine YELLOW (Yellow); Glucose,Urine (UA) Negative (Negative); Ketones,Urine Negative (Negative); Leukocyte Esterase,Urine Negative (Negative); Nitrate,Urine Negative (Negative); Protein,Urine Negative (Negative); Specific Gravity, Urine 1.015 (1.005-1.030); Urobilinogen,Urine 0.2 EU/dl (0.2)
--- NOTE | 2024-03-16 16:08 | HMH.ITSTN ---
DID NOT SCAN AT TIME OF ORDERS DUE TO NO PREG TEST ORDERED
[2024-03-16 16:16] LABS: Squamous Epithelial Cell,Urine Occasional #/hpf (0-5)
[2024-03-16 16:59] LABS: Urine Pregnancy, HCG Qual. Negative (Negative)
[2024-03-16] MEDS: 0.9 % SODIUM CHLORIDE 50 ML VIAL IV (17:25)
[2024-03-16] MEDS: IOPAMIDOL-370 (76%);100ML BOTTLE 100 ML IV (17:26)
[2024-03-16] MEDS: SODIUM CHLORIDE 0.9% 10ML SYR (RAD ONLY) 10 ML IV (17:26)
[2024-03-16 18:02] VITALS: BP 102/45; PULSE 78; RESP 18; O2SAT 97
[2024-03-16 18:20] VITALS: BP 118/75; PULSE 85; RESP 18; TEMP 36.7; O2SAT 98
== END 2024-03-16 18:21 | disposition home or self-care (01) ==
PROVIDERS: Physician Assistant; Emergency Provider Emergency Medicine; PCP Physician Assistant
DX: S93.402A Sprain of unspecified ligament of left ankle, initial encounter (principal); M54.6 Pain in thoracic spine; S80.211A Abrasion, right knee, initial encounter; F17.210 Nicotine dependence, cigarettes, uncomplicated; V49.49XA Driver injured in collision with other motor vehicles in traffic accident, initial encounter; Y92.410 Unspecified street and highway as the place of occurrence of the external cause
CPT/HCPCS: 70450; 70496; 70498; 71045; 72125; 72128; 72131; 73590; 73610; 73630; 80048; 81001; 81025; 85025; 99285; Q9967

== ENCOUNTER 2024-04-19 16:23 | Outpatient (CLI) | payer MEDICAID, SELFPAY ==
[2024-04-19 17:29] LABS: Basophils # 0.1 K/mm3 (0-0.2); Basophils % 0.9 % (0.1-2.0); Eosinophils # 0.4 K/mm3 (0.0-0.4); Eosinophils % 4.2 % (0.1-12.0); Hematocrit 38.9 % (37.0-47.0); Hemoglobin 12.8 g/dL (12.2-16.2); Lymphocytes # 2.7 K/mm3 (0.7-4.5); Lymphocytes % 27.5 % (10-50); Mean Corpuscular HGB Conc 32.9 g/dL (31.8-35.4); Mean Corpuscular Hemoglobin 27.5 pg (27.0-31.2); Mean Corpuscular Volume 83.6 fl (81-99); Monocytes # 0.5 K/mm3 (0.1-1.0); Monocytes % 5.6 % (1.7-9.3); Neutrophils # 6.1 K/mm3 (1.8-7.8); Neutrophils % 61.9 % (37.0-80.0); Platelet Count 405 K/mm3 (142-424); Red Blood Count 4.65 M/mm3 (4.20-5.40); Red Cell Distribution Width 15.7 % (11.5-17.5); White Blood Count 9.8 K/mm3 (4.8-10.8)
[2024-04-19 17:56] LABS: Alanine Aminotransferase 26 U/L (12-78); Albumin Level 4.9 g/dl (3.5-5.0); Albumin/Globulin Ratio 1.6 (1.1-1.8); Alkaline Phosphatase 82 U/L (38-126); Anion Gap 14.4 mEq/L (5-15); Aspartate Amino Transferase 24 U/L (14-36); Bilirubin,Total 0.5 mg/dl (0.2-1.3); Blood Urea Nitrogen 16 mg/dl (7-17); Calcium 9.9 mg/dl (8.4-10.2); Carbon Dioxide 28 mmol/L (22.0-30.0); Chloride 99 mmol/L (98-107); Estimated Glomerular Filt Rate 83 ml/min (>60); GFR (African American) 101 ML/MIN (>60); Glucose 94 mg/dl (74-100); Potassium 4.4 mmoL/L (3.5-5.1); Sodium 137 mmol/L (136-145); Total Protein,Serum 7.9 g/dl (6.3-8.2)
[2024-04-19 18:10] LABS: HCG,Quantitative < 2 mIU/ml (0-5.42)
== END 2024-04-19 23:59 | disposition home or self-care (01) ==
LOC: LAB 16:24
PROVIDERS: PCP Physician Assistant; Visit Provider Nurse Practitioner Obstetrics & Gynecology
DX: N92.0 Excessive and frequent menstruation with regular cycle (principal)
CPT/HCPCS: 36415; 80053; 84702; 85025

== ENCOUNTER 2024-04-25 07:17 | Day surgery (SDC) | payer MEDICAID, SELFPAY ==
--- NOTE | 2024-04-21 13:35 | SUR.PREOP ---
pre op phone call made on 04/21/24 at 1335. no answer. unable to leave voicemail
[2024-04-21 13:44] VITALS: BMI 32.5
[2024-04-25] VITALS (9 sets, daily range): BP systolic 104–138; BP diastolic 36–82; PULSE 66–100; RESP 14–19; TEMP 36.3–36.7; O2SAT 93–98
[2024-04-25] MEDS: LACTATED RINGERS 1000ML 1,000 ML 25 ML IV (07:55)
[2024-04-25] MEDS: CEFAZOLIN SODIUM 2 GM in 0.9 % SODIUM CHLORIDE 100 ML IV (08:59)
[2024-04-25] MEDS: ROPIVACAINE 0.5% 30ML VIAL 150 MG (09:14)
--- NOTE | 2024-04-25 09:21 | P.PNANES_ITS ---
[facility] Disclaimer: The information contained in this section may have been updated after the patient was seen, as this information can be updated by other users. 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 Panic attack Abnormal weight Attention Deficit Hyperactivity Disorder (ADHD) Numbness and tingling in both hands Insomnia RLS (restless legs syndrome) Chronic headaches Depression Leg pain Anxiety Asthma Vitamin D deficiency Surgical History Previous section Family History Other No significant family history Social History Smoking Status: Current every day smoker tobacco type: cigarettes packs per day: 1 second hand exposure: No alcohol intake: current alcohol intake frequency: holidays/special occasions only substance use type: denies use current occupational status: unemployed Travel in the last 8 weeks: Inside the [place] household members: spouse housing: house marital status: [facility] Anesthesia Checklist Patient Identification Patient Identification: Verbal (Name & ) Structural Data Admitted From: Home Planned Operative Procedure/s: d/c,hyst NPO Status Verified Time NPO: 00:00 Additional verifications Anesthesia Reactions: No Hx Blood Transfusions: No Blood Transfusion Reaction: No Airway Assessment Mallampati Score:: Class II C-Spine Mobility Assessed: Yes TMJ Mobility Assessed: Yes Dentition: Good Dentition Neurological Assessment Level of Consciousness: Awake, Alert and Appropriate Anesthesia Plan Anesthesia Risk discussed: Yes Anesthesia Plan: Verified ASA Class: II Anesthesia Type: General
--- NOTE | 2024-04-25 09:38 | P.PNANES_ITS ---
[facility] Anesthesia Record Part I Anesthesia Record I Intake, IV Amount: 800 Hydration: Adequate Estimated blood loss (mL): 0 Urine output (mL): 0 Blood Pressure: 138/36 SaO2: 93 Pulse Rate: 100 Airway Patency: Patent Respiratory Rate: 14 Temperature: 97.3 F Patient is:: Awake and Stable Stable to PACU at:: 09:30
--- NOTE | 2024-04-25 09:50 | P.OP_ITS ---
Date of procedure: 04/25/24 Pre-op Diagnosis:: Menorrhagia, possible polyp Post-op Diagnosis:: Menorrhagia Procedure performed:: Hysteroscopy, dilation and curettage, NovaSure ablation Surgeon:: Gurvinder Blount MD DIRECTOR OF CATERING:: José Luis Herrear Anesthesia: LMA Estimated blood loss (mL): 25 Clinical Note:: She is a 34-year-old lady who complains of extremely heavy periods. An ultrasound showed that she had a slightly thickened endometrium and a possible polyp in the lower uterine segment. As result of that she was offered hysteroscopy, D&C and NovaSure ablation with possible removal of the polyp. Operative findings:: She had an anteverted uterus that sounded to 9 cm. The endometrium appeared lush but otherwise normal. Operative note:: She was taken to the operating room where LMA anesthesia was found be adequate. She was prepped and draped in the normal sterile fashion in the lithotomy position. A weighted speculum was placed in the vagina and the anterior lip of the cervix was grasped with a tenaculum. The cervix was then dilated to approximately 6 mm. I then inserted a hysteroscope into the uterine cavity and the findings were as previously dictated. I then performed a gentle curettage with a medium curette. I then sounded the uterus and determine the length of the uterus. I then inserted the NovaSure device and determine the width of the endometrial cavity. The length of the uterine cavity was 5 cm and the width was 4.2 cm this was placed into the NovaSure device. I then ran the device through its program. I further inspected the endometrial cavity and was found to be completely charred. I then injected 30 cc of 0.5% ropivacaine at the 3:00, 5:00, 7:00, and 9:00 positions of the cervix. She tolerated procedure well and was taken to the recovery room in excellent condition. All sponge and instrument counts were correct. The estimated blood loss was less than 25 cc. Condition: stable Disposition: PACU Specimens:: Endometrial curettings Complications:: None
--- NOTE | 2024-04-26 09:26 | P.PNANES_ITS ---
[facility] Anesthesia Record Part II Anesthesia Record Part II Discharge Time: 10:05 Destination: Surgical Day Care (OP Surgery) PACU nurse assessment reviewed?: Yes Patient Condition:: Good Anesthesia Complications:: None Swallowing reflex intact?: Yes Airway Patency: Patent Cyanosis?: No Blood Pressure: 115/68 SaO2: 95 Respiratory Rate: 19 Pulse Rate: 90 Temperature: 97.8 F Mental Status: Alert & Oriented Pain level:: 0 Nausea and/or vomitting:: None Intake, IV Amount: 0 Hydration: Adequate
[2024-04-26 09:28] VITALS: BP 115/68; PULSE 90; RESP 19; TEMP 36.6; O2SAT 95
== END 2024-04-25 10:45 | disposition home or self-care (01) ==
PROVIDERS: PCP Physician Assistant; Visit Provider Nurse Practitioner Obstetrics & Gynecology
PROC: (CPT 58558; principal; 2024-04-25 09:00)
DX: N92.0 Excessive and frequent menstruation with regular cycle (principal); N85.8 Other specified noninflammatory disorders of uterus
CPT/HCPCS: 58563; 96372; 96374; J0690; J1885; J2250; J2405; J3010; J7120

== ENCOUNTER 2024-08-23 20:05 | Outpatient (CLI) | payer MEDICAID, SELFPAY ==
[2024-08-23 20:52] LABS: Albumin Level 4.4 g/dl (3.5-5.0); Chloride 102 mmol/L (98-107); Potassium 3.6 mmoL/L (3.5-5.1); Sodium 135 mmol/L (136-145)
[2024-08-23 20:55] LABS: Alanine Aminotransferase 28 U/L (12-78); Albumin/Globulin Ratio 1.6 (1.1-1.8); Alkaline Phosphatase 93 U/L (38-126); Anion Gap 13.6 mEq/L (5-15); Aspartate Amino Transferase 24 U/L (14-36); Bilirubin,Total 0.4 mg/dl (0.2-1.3); Blood Urea Nitrogen 15 mg/dl (7-17); Calcium 9.8 mg/dl (8.4-10.2); Carbon Dioxide 23 mmol/L (22.0-30.0); Chol/HDL Ratio 4.9 (1-3.5); Cholesterol 201 mg/dl (140-200); Estimated Glomerular Filt Rate 97 ml/min (>60); GFR (African American) 117 ML/MIN (>60); Globulin 2.8 g/dL (1.3-3.2); Glucose 102 mg/dl (74-100); HDL Cholesterol 41 mg/dl (40-60); Total Protein,Serum 7.2 g/dl (6.3-8.2); Triglycerides 211 mg/dl (30-150); VLDL Cholesterol 42 mg/dL (0-40)
[2024-08-23 21:12] LABS: Direct LDL Cholesterol 106.49 mg/dL (100-129)
[2024-08-23 21:26] LABS: Thyroid Stimulating Hormone 2.55 uIU/mL (0.465-4.68)
== END 2024-08-23 23:59 | disposition home or self-care (01) ==
LOC: LAB.DROPOF 20:05
PROVIDERS: PCP Family Medicine; Visit Provider Family Medicine
DX: F41.9 Anxiety disorder, unspecified (principal); I10 Essential (primary) hypertension; F17.210 Nicotine dependence, cigarettes, uncomplicated
CPT/HCPCS: 80053; 80061; 84443

== ENCOUNTER 2024-10-05 11:17 | Emergency (ER) | payer MEDICAID, SELFPAY ==
[2024-10-05 11:19] VITALS: BP 104/73; PULSE 88; RESP 16; TEMP 37.2; O2SAT 99; BMI 32.6
[2024-10-05 11:24] VITALS: PULSE 88; O2SAT 97
[2024-10-05 11:30] VITALS: BP 111/67; PULSE 80; O2SAT 98
[2024-10-05 11:45] VITALS: PULSE 66; O2SAT 92
[2024-10-05 12:00] VITALS: BP 101/72; PULSE 75; O2SAT 92
--- NOTE | 2024-10-05 12:02 | XR_ITS ---
FINAL REPORT CLINICAL HISTORY: sprain outer foot and ankle COMPARISON: None FINDINGS: AP, oblique, and lateral views of the right ankle were obtained. There is no fracture or dislocation. The ankle mortise is intact. Soft tissues are unremarkable. IMPRESSION: No acute osseous abnormality of the right ankle. Reviewed, Interpreted and Dictated by Michelle Miller MD Transcribed by Mary Martin Authenticated and [facility]
--- NOTE | 2024-10-05 12:02 | XR_ITS ---
FINAL REPORT CLINICAL HISTORY: sprain outer foot and ankle COMPARISON: None FINDINGS: AP, oblique and lateral views of the right foot were obtained. There is no acute fracture or dislocation. 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 Soft tissues are unremarkable. IMPRESSION: Degenerative change without acute osseous abnormality of the right foot. Reviewed, Interpreted and Dictated by Michelle Miller MD Transcribed by Mary Martin Authenticated and [facility]
--- NOTE | 2024-10-05 12:12 | ED_ITS ---
Discharge Plan Disposition Patient Disposition: Home, Self-Care Prescriptions Prescriptions: No Action metoprolol succinate 25 mg tablet extended release 24 hr See Rx Instructions .ROUTE .COMPLEX Qty: 90 0RF Dose Instruction: TAKE 1 TABLET BY MOUTH ONCE DAILY Rx Instructions: TAKE 1 TABLET BY MOUTH ONCE DAILY sertraline 100 mg tablet See Rx Instructions .ROUTE .COMPLEX Qty: 180 0RF Dose Instruction: TAKE 2 TABLETS BY MOUTH ONCE DAILY Rx Instructions: TAKE 2 TABLETS BY MOUTH ONCE DAILY tizanidine 4 mg tablet See Rx Instructions .ROUTE .COMPLEX Qty: 90 0RF Dose Instruction: TAKE 1 TABLET BY MOUTH AT BEDTIME NIGHTLY NEEDED FOR MUSCLE SPASTICITY/RLS Rx Instructions: TAKE 1 TABLET BY MOUTH AT BEDTIME NIGHTLY NEEDED FOR MUSCLE SPASTICITY/RLS lisinopril 20 mg tablet 20 mg PO DAILY Qty: 90 0RF hydrochlorothiazide 25 mg tablet See Rx Instructions .ROUTE .COMPLEX Qty: 90 0RF Dose Instruction: TAKE 1 TABLET BY MOUTH ONCE DAILY Rx Instructions: TAKE 1 TABLET BY MOUTH ONCE DAILY zfrlgijrqg-hhbginilvxipi-bytm 50-300-40 mg capsule 1 cap PO Q8H PRN (Reason: headache) Qty: 20 0RF Referrals Follow up/Referrals: Anderson Bell MD [Primary Care Provider] - See instructions Activity Restrictions/Add. Instructions Additional Instructions/Restrictions: Follow with your family doctor regarding this visit to the emergency department. Call your family doctor to establish care for this visit to the emergency department and schedule follow-up within 48 hours to ensure improvement. If you have any worsening of your condition or any other concerning signs or symptoms, return to the emergency department or your primary care doctor for further evaluation. Take Tylenol 1000 mg every 6 hours (4 times daily) and ibuprofen 400 mg every 6 hours (4 times daily) as needed with food and water to prevent GI upset and kidney damage. Clinical Impressions Clinical Impression: Ankle sprain Print Language Print Language: Turkish Discharge ED Provider: Rodolfo [facility] HPI General Chief complaint: PAIN Stated complaint: AO-10/04/24-fall, pain, swelling to R foot Time Seen by Provider: 10/05/24 11:32 Mode of Arrival: Wheelchair Source of Information: Patient Limitations: No Limitations Description of Symptoms (Recalled from ER Triage Doc. by RN): pt presents to ED with c/o right ankle pain. pt reports that she had a misstep yesterday and twisted her ankle. History of Present Illness HPI narrative: Please note that above description of symptoms, in this electronic medical record under categorization of recalled from ER triage doctor by RN are reflective of an initial nursing assessment, however, is not reflective of my full history and physical exam that was personally taken and clarified. Consequentially, this preceding description of symptoms, which may include the patient's categorized chief complaint in the EMR, do not reflect my personal clinical impression, and the ultimate description of history of present illness and patient stated complaints should be deferred to this section of the note. Unless stated otherwise or congruent with this section of the note, additional signs, symptoms, or incongruence should be interpreted as inaccurate with my clinical impression. Related Data Previous Rx's ?Medication ?Instructions ?Recorded hydrochlorothiazide 25 mg tablet See Rx Instructions .Route 08/23/24 .COMPLEX #90 tabs lisinopril 20 mg tablet 20 mg PO DAILY BP #90 tabs 08/23/24 metoprolol succinate 25 mg See Rx Instructions .Route 08/23/24 tablet,extended release 24 hr .COMPLEX #90 tabs sertraline 100 mg tablet See Rx Instructions .Route 08/23/24 .COMPLEX #180 tabs tizanidine 4 mg tablet See Rx Instructions .Route 08/23/24 .COMPLEX #90 ea yhdrnzexiw-pypiecuovrupj-abdpmwis 1 cap PO Q8H PRN headache #20 caps 09/02/24 50 mg-300 mg-40 mg capsule Allergies Allergy/AdvReac Type Severity Reaction Status Date / Time citalopram Allergy Unknown Verified 09/02/24 09:17 clavulanic acid (From Allergy Unknown Verified 09/02/24 09:17 Augmentin) duloxetine Allergy Unknown Verified 09/02/24 09:17 [facility] Disclaimer: The information contained in this section may have been updated after the patient was seen, as this information can be updated by other users. 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 Sphenoidal sinusitis Anxiety Panic attack Abnormal weight Attention Deficit Hyperactivity Disorder (ADHD) Numbness and tingling in both hands Insomnia RLS (restless legs syndrome) Chronic headaches Depression Leg pain Asthma Vitamin D deficiency Surgical History Previous section Family History Other No significant family history Social History Smoking Status: Current every day smoker tobacco type: cigarettes packs per day: 1 second hand exposure: No alcohol intake: current alcohol intake frequency: holidays/special occasions only substance use type: denies use current occupational status: unemployed household members: spouse housing: house marital status: Other 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 Have you received the Flu Vaccine for this season: No Have you received the Pneumonia Vaccine: No ROS Obtained: Yes All systems reviewed & no additional complaints except as documented Physical Exam General General appearance: alert Head Head exam: atraumatic and normocephalic Eye Eye exam: Present normal appearance, PERRL and EOMI Neck Neck exam: Present normal inspection, full ROM and trachea midline Respiratory Respiratory exam: Absent respiratory distress, wheezes, stridor, accessory muscle use or prolonged expiratory phase Cardiovascular Cardiovascular exam: Present other (Pulses equal symmetric in upper and lower extremities) Abdominal Exam Abdominal exam: Present soft; Absent distention, tenderness or pulsatile mass Extremities Exam Extremities exam: Present tenderness and edema Neurological Exam Neurological exam: Present alert, oriented X3 and CN II-XII intact; Absent motor sensory deficit Skin Skin exam: Present warm and dry; Absent diaphoresis or erythema Medical Decision Making Medical Records Medical records reviewed: Yes I reviewed the patient's medical records. Screening: Per USPSTF and CDC recommendations, given the prevalence of disease in our region, it is our hospital?s policy to screen for HIV and viral Hepatitis for all patients aged 18 and over and those with ongoing risk factors. [place] Inquiry Pt receiving controlled substance: No [place] was queried for this patient: No Vital Signs: 10/05/24 11:19 10/05/24 11:24 10/05/24 11:30 Temperature 99.0 F Temperature Source Oral Pulse Rate 88 80 Pulse Rate [Left Radial] 88 Respiratory Rate 16 Blood Pressure 111/67 Blood Pressure [Right Arm] 104/73 L Blood Pressure Mean [Right Arm] 83 02 Sat by Pulse Oximetry 99 97 98 Oxygen Delivery Method Room Air 10/05/24 11:45 10/05/24 12:00 Temperature Temperature Source Pulse Rate 66 75 Pulse Rate [Left Radial] Respiratory Rate Blood Pressure 101/72 L Blood Pressure [Right Arm] Blood Pressure Mean [Right Arm] 02 Sat by Pulse Oximetry 92 L 92 L Oxygen Delivery Method Orders (Tests/Meds): ORDERS Category Date Time Status Ankle XR -Right minimum 3 Views [XR ankle RT min 3V] Exams 10/05/24 12:02 Taken Stat Foot XR right minimum 3 views [XR foot RT min 3V] Stat Exams 10/05/24 12:02 Taken HIV (1&2) Antibody Rapid Stat Lab 10/05/24 11:29 Ordered Hep C Ab with Reflex to RNA Stat Lab 10/05/24 11:29 Ordered Medical Decision Narrative: This is a 34-year-old female no relevant medical history presenting with right ankle pain. Patient states that she tripped over her stool yesterday, 10/04, foot twisted under her, she landed directly downward on the foot. Having tenderness and swelling on the outside of her right foot and ankle. Able to bear weight, but with pain. Tried taking Tylenol and Motrin, it did not help much. No numbness, tingling, weakness, deformity, any other trauma sustained. History obtained with patient. On arrival, she is very well-appearing. She sitting in wheelchair. Right ankle not appreciably swollen. She does not have any proximal fibular or tibia tenderness. No lower leg tenderness at all. Medial malleolus, lateral malleolus nontender. Midfoot nontender, talus nontender. She has no tenderness the calcaneus. Patient has primary tenderness base of fifth metatarsal as well as lateral aspect of the foot between the lateral malleolus and the base of the fifth metatarsal. Neurovascular intact. Differential includes sprain, strain, fracture, dislocation, among others. Patient took meds just for arrival, nothing given here. Independent interpretation of x-rays demonstrates no acute bony abnormality, but soft tissue injury is present. Because patient at baseline without signs or symptoms of clinical decompensation, deemed appropriate for discharge. Results were relayed to patient who voiced understanding and were agreeable to outpatient management and follow up. I discussed my clinical impression with patient and answered all questions. At this time, the evidence for any other entities in the differential is insufficient to warrant any further testing or ED observation. This was explained as well. Advisory was given that persistent or worsening symptoms require further evaluation. I confirmed the understanding of this discussion. Dialysis Biomed Technician disclaimer Much of this encounter note is an electronic wireless architect spoken language to printed text. Electronic wireless architect of the spoken language may permit errors. Although I have reviewed the note, some errors may still exist. Critical Care Critical Care Time Critical Care Time: No
[2024-10-05 13:06] VITALS: BP 131/85; PULSE 75; RESP 16; TEMP 36.7
== END 2024-10-05 13:08 | disposition home or self-care (01) ==
PROVIDERS: Emergency Provider Emergency Medicine; PCP Family Medicine
DX: S93.409A Sprain of unspecified ligament of unspecified ankle, initial encounter (principal); M25.571 Pain in right ankle and joints of right foot; M79.671 Pain in right foot; W18.09XA Striking against other object with subsequent fall, initial encounter; Y93.89 Activity, other specified; Y92.009 Unspecified place in unspecified non-institutional (private) residence as the place of occurrence of the external cause
CPT/HCPCS: 73610; 73630; 99283

== ENCOUNTER 2025-06-21 17:28 | Emergency (ER) | payer MEDICAID, SELFPAY ==
[2025-06-21 17:36] VITALS: BP 123/88; PULSE 65; RESP 18; O2SAT 99; BMI 28.3
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
[2025-06-21 18:01] VITALS: BP 100/65
[2025-06-21 18:32] VITALS: BP 100/65; PULSE 65; RESP 17; TEMP 36.8; O2SAT 99
== END 2025-06-21 18:25 | disposition home or self-care (01) ==
PROVIDERS: Emergency Provider Student in an Organized Health Care Education/Training Program; PCP Family Medicine
DX: G56.03 Carpal tunnel syndrome, bilateral upper limbs (principal); M79.641 Pain in right hand; M79.642 Pain in left hand; R20.0 Anesthesia of skin; F17.210 Nicotine dependence, cigarettes, uncomplicated
CPT/HCPCS: 99283